=== PATIENT | female | born 1940 | race African-American/Black ===

== ENCOUNTER 2016-09-01 19:10 | Inpatient (IN) | payer OTHER ==
--- NOTE | ~2016-09-01 | CN ---
Consultation Report [facility] [address] [place]. [address] NAME: JUAN CHARLES : 38 STATUS : ADM IN [facility]#: [id number] AGE: 76 ADM/REG DATE : 09/01/16 MR#: [id number] REPORT SERV DATE: 09/30/16 DICTATED BY: OLGA LIDIA KEITA DATE: 09/30/16 REPORT STATUS : Draft TRANSCRIBED BY: MODL DATE: 09/30/16 INFECTIOUS DISEASE CONSULTATION DATE OF CONSULTATION: REASON FOR REFERRAL: Evaluation and treatment of infected hematoma. HISTORY OF PRESENT ILLNESS: The patient is a 76-year-old female. She has a history of hypertension, hyperlipidemia, degenerative joint disease, and diverticulosis. She came in, in July, she had a diverticular bleed. This ultimately resulted in needing 7 units of packed red blood cells, and required an embolization by Interventional Radiology at the terminal iliac, celiac vessels. She then returned in August with a large hematoma in her right groin. She was seen by Dr. Sadler and that area was incised and drained on 09/02/2016. Cultures of it grew in the broth only E coli and Enterococcus. At that time, her white blood cell count was mildly elevated and she had no fever except for an occasional low-grade temperature of around 100.5. She was treated with Ancef. She continued to have difficulty with bleeding. She had nosebleeds, hematuria. 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 She became more ill with higher white count in early September. Blood cultures were checked and she grew E. coli from her blood. Her groin was cultured again and grew Enterococcus, Pseudomonas, and Klebsiella. She was on initially ampicillin and Septra after that, but then ultimately switched on 09/20/2016 to cefepime with the Enterococcus, it was changed to Zosyn on 09/24/2016. She has had repeat debridements again on 09/26/2016, where she grew E coli and Enterococcus and then again today, and she has had VAC pack placed with the last two procedures. She since the Zosyn was started has had normalization of her white count. She feels better and with the treatment of her factor VIII deficiency, bleeding has stopped. She has a VAC pack on her wound now. No cultures were sent today. PAST MEDICAL HISTORY: Otherwise unremarkable. Extensive records from [facility] hospitalization were reviewed for approximately 30 minutes in addition to the usual consult time. ALLERGIES: SHE HAS NO ANTIMICROBIAL ALLERGIES. SOCIAL HISTORY: She is living independently at home prior to this. She is a nonsmoker. Has no history of alcohol or substance abuse. She is . Has supportive family. 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 FAMILY HISTORY: Noncontributory. PHYSICAL EXAMINATION: GENERAL: A nontoxic, adult, female, in no acute distress. She is alert and oriented x3. Consultation Report [facility] [id number] [place]. [address] NAME: JUAN CHARLES : 38 STATUS : ADM IN [facility]#: [id number] AGE: 76 ADM/REG DATE : 09/01/16 MR#: [id number] REPORT SERV DATE: 09/30/16 DICTATED BY: OLGA LIDIA KEITA DATE: 09/30/16 REPORT STATUS : Draft TRANSCRIBED BY: INES DATE: 09/30/16 VITAL SIGNS: Her present temperature is 97.7, pulse 72, respirations 12, blood pressure 165/67, weight is 83 kg. HEENT: Sclerae are clear. There are no oropharyngeal lesions. NECK: Supple without lymphadenopathy. LUNGS: Clear. HEART: Regular rate and rhythm. ABDOMEN: Soft, nontender. Positive bowel sounds. The groins are covered by VAC pack. There is no redness or purulence around it. EXTREMITIES: Without clubbing or cyanosis, or edema. LABORATORY DATA: Her white blood cell count today 7, it had been previously 16 when she came in. She layton to 21 on 09/08/2016 and then 29 on 09/19/2016 to 30.6 on 09/20/2016 and 31.1 on 09/23/2016. It has been decreasing since down to 13 on 09/26/2016 and 10.1 on 09/27/2016 and 8.55 on 09/28/2016, and 7 today with a hematocrit of 26.5, platelets 278. The differential shows today 88 segs and 3 bands, but she previously had a high bandemia as high as 19% bands at the time of the positive blood cultures. Her BUN and creatinine are 10 and 0.68. IMPRESSION: An infected hematoma at the site of puncture for an embolization procedure. All of this has been complicated by her factor VIII deficiency leading to multiple episodes of bleeding, collections of blood that markedly increase her risk of secondary infection, which has now happened with multiple organisms, even leading to bacteremia. At present though, she is doing much better, and the antibiotic she is on Zosyn will cover all the isolated organisms. RECOMMENDATIONS: 1. Agree with the Zosyn. 2. Probably will need at least one more week IV. We will have to see how the wound does with subsequent VAC pack changes. 3. Finally, I will follow the patient with you. I appreciate very much your consulting on this patient. ANNE/INES Olga Lidia Keita M.D. / [id number] CC: MD Robert Mchugh M.D. Daniel Fisher Jr., M.D.
--- NOTE | ~2016-09-01 | IDS ---
Interim Discharge Summary [facility] [address] [place]. [address] NAME: JUAN CHARLES : 38 STATUS : ADM IN [facility]#: [id number] AGE: 76 ADM/REG DATE : 09/01/16 MR#: [id number] REPORT SERV DATE: 09/21/16 DICTATED BY: ESTELLE GILLETTE DATE: 09/21/16 REPORT STATUS : Draft TRANSCRIBED BY: MODL DATE: 09/21/16 ADMISSION DATE: 09/01/2016 DISCHARGE DATE: CONSULTING PHYSICIANS: Dr. Fawad Guillory and Dr. Palacios for Hematology and Dr. Sadler for Vascular Surgery. INTERIM DIAGNOSES: 1. Acquired factor VIII inhibitor with coagulopathy. 2. Acute blood loss anemia, status post 6 units of packed RBC. 3. Right groin hematoma, status post evacuation and repair. 4. Escherichia coli bacteremia. 5. Possible groin wound infection. 6. Hypertension. 7. Status post hematuria and urinary retention. 8. Status post acute kidney injury. 9. Status post hyponatremia. HOSPITAL COURSE: Please refer to the H and P done by Dr. Bailey on 09/02/2016, my interim discharge in 09/07/2016, and the interim done by Dr. Gina zuñiga on 09/14/2016. Since I reassumed care of this patient, the patient was being seen by Hematology and was being given NovoSeven and later on Feira to help with the factor VIII inhibitors. The patient was being followed by Vascular Surgery. At one point, they were thinking of reexploring the wound; however, the bleeding seems to have gone down with these medications. Later on, they got the titers back, and they started the patient on cyclophosphamide with the prednisone. The patient was then transferred to [facility] so that they can give the cyclophosphamide every day. The patient was not feeling well at one point. We did a blood culture that turned out to be E coli. We thought it was in the wound as she had E. coli in the wound earlier part of this admission. The groin was being checked, and we found the wound malodorous and culture was done which showed Klebsiella and Pseudomonas. The patient was started on antibiotics, and it was switched now to cefepime which will take care of the three identified bacteria. Meanwhile, Urology has signed off as the patient stopped having hematuria, and the Menard was removed, and the patient is able to urinate. Kidney function went back to normal. Hyponatremia improved. The patient will now be continuing the chemotherapy and titers will be rechecked and hopefully that this would continue helping the patient not bleed. Partner of mine will be following up the patient starting Thursday. SLY/INES Estelle Gillette M.D. / [id number] Interim Discharge Summary [address] [address] NAME: JUAN CHARLES : 38 STATUS : ADM IN [facility]#: [id number] AGE: 76 ADM/REG DATE : 09/01/16 MR#: [id number] REPORT SERV DATE: 09/21/16 DICTATED BY: ESTELLE GILLETTE DATE: 09/21/16 REPORT STATUS : Draft TRANSCRIBED BY: INES DATE: 09/21/16 CC: Dylon Machado M.D.
--- NOTE | ~2016-09-01 | IDS ---
Interim Discharge Summary [facility] [address] [place]. [address] NAME: JUAN CHARLES : 38 STATUS : ADM IN [facility]#: [id number] AGE: 76 ADM/REG DATE : 09/01/16 MR#: [id number] REPORT SERV DATE: 09/30/16 DICTATED BY: DATE: REPORT STATUS : Draft TRANSCRIBED BY: MODL DATE: 09/29/16 ADMISSION DATE: 09/01/2016 DISCHARGE DATE: CONTINUATION: Pertinent tests and procedures occurring between the dates of 09/23/2016 and 09/29/2016: 1. Upper GI endoscopy, 09/26/2016. Impression: Normal examined jejunum, esophagus, stomach, and duodenum. No endoscopic evidence of hiatus hernia, inflammation, mucosal abnormalities, ulceration, varices, angioectasia, or portal hypertension gastropathy in the entire examined stomach. 2. Colonoscopy, 09/26/2016. Impression: Diverticulosis in the entire examined colon. Many small polyps at the splenic flexure, in transverse colon, in the ascending colon, and in the cecum. One 50 mm polyp at 30 cm proximal to the anus resected and retrieved. 3. Video capsule endoscopy. Verbal report given by GI two days ago with no evidence of bleeding. 4. Radical debridement of right groin wound and placement of wound VAC, 09/26/2016. 5. Surgical culture from right groin collected, 09/26/2016, final culture sparse growth of E. coli. Presumptive Enterococcus faecalis group D. Final Gram stain on specimen, rare gram-negative bacilli, and moderate white blood cells. 6. Red blood cell tagged scan, 09/27/2016. Impression: Negative study. HOSPITAL COURSE: The patient has had an extended hospitalization with admission date occurring on 09/02/2016. Please refer to multiple consultations provided by Urology, Oncology, Gastroenterology, and Vascular Surgery as well as interim discharges occurring between the dates of 09/02/2016 and 09/29/2016 for all details pertaining to events occurring during this hospitalization. 1. Right groin hematoma infected. On 08/04/2016, the patient developed a pseudoaneurysm to the right groin status post right groin puncture for mesentery embolization procedure. The patient underwent evacuation and repair on 09/02/2016. The patient has been on antibiotics to treat multiple organism infection to include Pseudomonas aeruginosa, Klebsiella pneumoniae, and Enterococcus faecalis group D. Despite aggressive antibiotic therapy, the patient developed infection to right groin wound over the past week and Vascular Surgery was reconsulted. The patient underwent radical debridement of right groin wound with placement of wound VAC to treat necrotic right groin wound on 07/26/2016. Additional wound cultures were collected and result is positive for sparse growth of E. coli and presumptive Enterococcus faecalis group D. Antibiotic tree in pharmacy was contacted today regarding new culture result, and it was recommended to continue Zosyn at this time. The patient will undergo wound VAC dressing change under anesthesia in the OR in the morning, and ID has been consulted per Vascular Surgery. 2. E. coli bacteremia. This was resultant of 2 positive blood cultures, 09/18/2016. The patient was initially on cefepime; however, white blood cell count continued to trend upward with this antibiotic therapy. On 09/23/2016, cefepime was discontinued and Zosyn was started. At the time of this antibiotic switch, white blood count was 31.1. Within 24 hours of initiating Zosyn, white blood cell count trended down to 24.1, and Interim Discharge Summary [address] [address] NAME: JUAN CHARLES : 38 STATUS : ADM IN [facility]#: [id number] AGE: 76 ADM/REG DATE : 09/01/16 MR#: [id number] REPORT SERV DATE: 09/30/16 DICTATED BY: DATE: REPORT STATUS : Draft TRANSCRIBED BY: MODL DATE: 09/29/16 then has continued to trend down daily and is 8.6 today. 3. Acquired factor VIII inhibitor with coagulopathy. Continue Cytoxan and prednisone. Oncology may likely start rituximab tomorrow in addition to these two medications. The patient is slowly improving, however, factor VIII inhibitor quantitative titer is still significantly elevated at 20.8. 4. Acute blood loss anemia and bright red blood per rectum. The patient has undergone multiple GI diagnostic tests with no endoscopic evidence for active bleed. The patient was initially placed on FEIBA, and despite increased dosed every six hours, the patient continued to be high risk for bleeding with PTT continuing to escalate. FEIBA was discontinued, and the patient was placed on NovoSeven. Since this therapy has been initiated, the patient's PTT is slowly trending downward and need for the transfusions has decreased. NovoSeven will be continued for up to two weeks inpatient. 5. Chronic anemia. In the setting of acute blood loss anemia secondary to factor VIII inhibitor, transfuse p.r.n. The patient has received 4 units of packed red blood cells since 09/24/2016, and hemoglobin is stable today at 8.3. GI signed off on 07/28/2016. Reconsult is needed. CURRENT PLAN: 1. Continue NovoSeven, Cytoxan, and prednisone with possible addition of rituximab tomorrow. 2. The patient will most likely remain hospitalized for at least 2 more weeks until NovoSeven therapy is completed and acute blood loss anemia is resolved. 3. PT has been reconsulted for evaluation and treatment on 10/01/2016 after the patient has undergone right groin hematoma wound VAC exchange in the OR. LIUDMIAL/INES Elissa Jones NP-Jason / [id number] CC: MD Robert Sue II, M.D.
--- NOTE | ~2016-09-01 | DS ---
Discharge Summary [facility] [address] [place]. [address] NAME: JUAN CHARLES : 38 STATUS : DIS IN PAT#: [id number] AGE: 76 ADM/REG DATE : 09/01/16 MR#: [id number] REPORT SERV DATE: 10/22/16 DICTATED BY: DATE: REPORT STATUS : Draft TRANSCRIBED BY: MODL DATE: 10/21/16 ADMISSION DATE: 09/01/2016 DISCHARGE DATE: 10/21/2016 DISCHARGE DIAGNOSES: 1. Right groin hematoma, previous infection/bacteremia. 2. Hypertension. 3. Acute blood loss anemia on chronic anemia. 4. Right calf swelling chronic. 5. Factor VIII inhibitor. CONSULTATIONS: 1. Dr. Palacios, Oncology. 2. Patrick Pineda, nurse practitioner, Gastroenterology. 3. Dr. De León, Urology. 4. Dr. Levy, Infectious Disease. PERTINENT TESTS AND PROCEDURES: Occurring between the dates of 10/20/2016 and 10/21/2016. 1. Laboratory data. Factor VIII inhibitor. Quantitative result 0.6. 2. Right lower extremity venous Doppler, 10/21/2016, impression: No evidence of DVT. Please note that there is obscuration of the common femoral vein from analysis because of overlying wound. HOSPITAL COURSE: Please refer to history and physical dated 09/02/[address] David Bailey for complete details pertaining to the patient's initial presentation upon admission and health history. The patient's hospital stay has been extensive ranging between the dates of 09/01/2016 and 10/21/2016. During this time, the patient has had multiple consultations to include Oncology, Urology, Gastroenterology, Vascular Surgery, and Infectious Disease Please refer to multiple interim discharge summaries and consultations occurring between the dates of 09/02/2016 and 10/21/2016 for additional details pertaining to events occurring during the patient's hospital course. Please refer to most recent interim discharge summary dated 10/20/2016 covering dates of service between 10/14/2016 and 10/20/[address] Dylan Larson for the most recent occurrences. Briefly, the patient is a 76-year-old female, who presented to the emergency department on 09/01/2016 with complaints of right groin swelling and pain in the setting of recent history of right common femoral pseudoaneurysm, status post right groin puncture for mesentery embolization on 08/04/2016. Hospitalization was complicated secondary to the patient's history of a factor VIII inhibitor. The patient at risk for life-threatening blood loss anemia. Discharge Summary [facility] [place]. [address] NAME: JUAN CHARLES : 38 STATUS : DIS IN PAT#: [id number] AGE: 76 ADM/REG DATE : 09/01/16 MR#: [id number] REPORT SERV DATE: 10/22/16 DICTATED BY: DATE: REPORT STATUS : Draft TRANSCRIBED BY: MODL DATE: 10/21/16 Oncology was consulted, and the patient has been managed per their service to treat factor VIII inhibitor in the setting of acute blood loss anemia on chronic anemia. 1. Right groin hematoma. The patient is status post previous infection/bacteremia. Antibiotic course was completed during this hospitalization. The patient most recently underwent a radical debridement of right groin wound and placement of wound VAC on 09/26/2016. The patient is no longer requiring antibiotic therapy and wound VAC will be managed per Home Health Care upon discharge. 2. Hypertension. The patient has continued home blood pressure medications with no need for additional interventions. These medications will be continued at discharge. 3. Acute blood loss anemia in the setting of chronic anemia. The patient has had a slow GI bleed throughout this admission. Extensive endoscopic workup revealed normal examined jejunum, esophagus, stomach, and duodenum. There was no endoscopic evidence of bleed. The patient has responded well to blood transfusions as needed and bloody stool has now resolved. The patient's last CBC was checked on 10/19/2016 and hemoglobin and hematocrit were reported to be 7.5 and 24.5. The patient has received NovoSeven during this admission and her last dose was 10/17/2016. The patient has not had any additional signs or symptoms of bleeding since the discontinuation of NovoSeven and her inhibitor levels have been routinely followed by Oncology and have improved to near normal. Labs will be checked on a routine basis by [facility] outpatient. 4. Factor VIII inhibitor. The patient is status post Cytoxan. Last dose of Rituxan was today. The patient will continue prednisone 80 mg daily with breakfast and outpatient taper will begin per Dr. Palacios. 5. Right calf swelling. Per patient, this is chronic secondary to surgery requiring plate placement in foot. Examination revealed right calf 42 cm, left calf 34 cm. The patient has not been able to receive any anticoagulation for DVT prophylaxis during this admission secondary to factor VIII inhibitor in the setting of high risk for bleeding. Right lower extremity venous Doppler was obtained prior to discharge today and it was negative for DVT. DISCHARGE CONDITION: At the time of discharge, the patient is hemodynamically stable. DISCHARGE DIET: Regular diet as tolerated. DISCHARGE MEDICATIONS: 1. Lotrel 5 mg/20 mg tablet p.o. daily. 2. Fenofibrate 67 mg tablet p.o. daily. 3. Protonix 40 mg tablet p.o. twice daily before breakfast and supper. 4. Carafate 1 g p.o. every six hours x2 weeks. 5. Deltasone 80 mg tablet p.o. daily with breakfast. 6. Refresh artificial tears one drop to both eyes as needed. 7. [place] 5 mg/325 mg tablet p.o. three times daily as needed. 8. Advil 200 mg tablet p.o. three times daily. 9. The patient was educated to stop taking all NSAIDs due to history of factor VIII inhibitor and recent GI bleed. DISCHARGE INSTRUCTIONS: 1. Dr. Palacios, [facility], 10/24/2016 at 2:15 p.m. Discharge Summary [address] [address] NAME: JUAN CHARLES : 38 STATUS : DIS IN PAT#: [id number] AGE: 76 ADM/REG DATE : 09/01/16 MR#: [id number] REPORT SERV DATE: 10/22/16 DICTATED BY: DATE: REPORT STATUS : Draft TRANSCRIBED BY: MODL DATE: 10/21/[address] Waite, GI. Office will call the patient once discharge, to schedule followup visit. The patient was educated to return to the emergency department for any acute onset of uncontrolled bleeding, shortness of breath at rest, and/or dyspnea on exertion, black tarry stool, visible right red blood in stool, syncopal or near syncopal episodes, chest pain, or any other signs or symptoms that or deviations from her baseline health status at the time of this discharge. Primary oncologist, Dr. Palacios. Primary care physician, Dr. Robert Singh. Primary tool lathe operator, Dr. Greg Waite. JWH/MODL VIVI Irene / [id number] CC: MD Robert Sue II, M.D.
--- NOTE | ~2016-09-01 | IDS ---
Interim Discharge Summary [facility] [address] [place]. [address] NAME: JUAN CHALRES : 38 STATUS : ADM IN [facility]#: [id number] AGE: 76 ADM/REG DATE : 09/01/16 MR#: [id number] REPORT SERV DATE: 09/14/16 DICTATED BY: ESTELLE FUENTES DATE: 09/14/16 REPORT STATUS : Draft TRANSCRIBED BY: MODL DATE: 09/14/16 ADMISSION DATE: 09/01/2016 DISCHARGE DATE: 09/14/2016 CONSULTANTS: 1. Dr. Garret Porter, Hematology. 2. Dr. Jose De León, Urology. 3. Dr. Kahlil Sadler, Vascular Surgery. INTERIM DIAGNOSES: 1. Acquired factor VIII inhibitor with coagulopathy. 2. Large right groin hematoma requiring evacuation and repair. 3. Ongoing gross hematuria after Menard catheter. 4. Major diverticular bleed, June 2016, requiring coil. 5. Previous major nose bleeds, late 2014. 6. Acute blood loss anemia. 7. Hypertension. 8. Obesity with body mass index of 33.9. 9. Osteoarthritis. 10.Status post hyponatremia. HOSPITAL COURSE: This patient has had a number of bleeding problems. In 2014, she had repeated multiple nosebleeds that took months to get stopped and multiple trips to Ears, Nose, and Throat. She was hospitalized here 07/16/2016 through 07/24/2016 with a lower GI bleed that was quite large and required interventional Radiology to do a coiling procedure to stop the bleeding from her right colon. At that time, she had the bleeding controlled. She was discharged but came back September 01 with a very large right groin hematoma, and was seen by Dr. Kahlil Sadler who explored it and repaired a small hole in the right common femoral artery and evacuated a very large hematoma. The patient received transfusion of blood during this as well. The patient had a Menard catheter in when I met her, and she was having gross intermittent hematuria so I had Dr. Jose De León of Urology see her, and he started to bladder irrigation but she continued to bleed. I noticed that her PTT and protime/INR were elevated and have been since June, so I repeated them and given her vitamin K, they did not improve. She does not have any sign of chronic liver disease. She is not taking any anticoagulants. I was very concerned that she had an acquired inhibitor causing coagulopathy. Family recalled that a manager dairy had seen her before for this but they had no idea what the specific diagnosis was. They remembered that the patient was given a card and supposed to keep it in her wallet but they could not find this. I had Dr. Garret Porter see her. He found that his partner, Dr. Gibbs, had seen her last year at [facility] where she was found to have a factor VIII inhibitor and at that time, she had a low titer of the inhibitor and she was put on steroids and improved, and had a followup in their office through November. Now with her current scenario, he thinks it is most likely that the inhibitor titer has gone up considerably, and he is recommending that she be Interim Discharge Summary [address] [place] [place]. [id number] NAME: JUAN CHARLES : 38 STATUS : ADM IN [facility]#: [id number] AGE: 76 ADM/REG DATE : 09/01/16 MR#: [id number] REPORT SERV DATE: 09/14/16 DICTATED BY: ESTELLE FUENTES DATE: 09/14/16 REPORT STATUS : Draft TRANSCRIBED BY: MODL DATE: 09/14/16 started on prednisone 1 mg/kg and to consider either Rituxan or other immunosuppressive agents to try to control the inhibitor level. The bleeding appears to be predominantly problem related to the acquired factor VIII inhibitor. RSG/MODL Estelle Fuentes M.D. / [id number] CC: Dylon Fernandes M.D.
--- NOTE | ~2016-09-01 | OP ---
Record Of Operation [facility] [address] [place]. [address] NAME: JUAN CHARLES : 38 STATUS : ADM IN [facility]#: [id number] AGE: 76 ADM/REG DATE : 09/01/16 MR#: [id number] REPORT SERV DATE: 09/30/16 DICTATED BY: KAHLIL SADLER JR. DATE: 09/30/16 REPORT STATUS : Draft TRANSCRIBED BY: MODL DATE: 09/30/16 DATE OF PROCEDURE: 09/30/2016 PREOPERATIVE DIAGNOSIS: Necrotic right groin wound. POSTOPERATIVE DIAGNOSIS: Necrotic right groin wound. OPERATION: Removal of VAC sponge, debridement of wound, replacement of explant. SURGEON: Kahlil Sadler M.D. HISTORY: This is a 76-year-old, black female, with factor VIII deficiency, who had an arteriogram more three weeks ago with development of a hematoma. I ultimately drained the hematoma and she started oozing. 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 She has been given factor VII as replacement. The wound was necrotic and was debrided four days ago. She is brought back today for a VAC change. DESCRIPTION OF PROCEDURE: The patient was placed on operating table. LMA general anesthetic. The VAC sponge was removed. The wound was immediately noted to be markedly improved over four days ago. The groin was prepped and draped in a sterile manner as possible. Pickups were then used to continue the debridement process. Debridement was done with scissors and was all the way down to fascia and muscle. The VAC sponge was then replaced. The size of the wound was 10 x 12 cm. The patient tolerated procedure well. Taken back to recovery room in fair condition. No intraoperative complications. ESTIMATED BLOOD LOSS: Negligible. DF/MODL Kahlil Sadler Jr., M.D. / [id number] CC: MD Robert Sue II, M.D.
--- NOTE | ~2016-09-01 | CN ---
Consultation Report [facility] [address] [place]. [address] NAME: JUAN MILLER : 38 STATUS : ADM IN PAT#: [id number] AGE: 76 ADM/REG DATE : 09/01/16 MR#: [id number] REPORT SERV DATE: 09/24/16 DICTATED BY: GLADYS MIRANDA DATE: 09/24/16 REPORT STATUS : Draft TRANSCRIBED BY: MODL DATE: 09/24/16 GI CONSULTATION DATE OF CONSULTATION: 09/24/2016 REASON FOR CONSULTATION: Evaluation and management of lower GI bleeding with acute blood loss anemia. HISTORY OF PRESENT ILLNESS: Ms. Miller is a pleasant 76-year-old female patient, who we saw in July of 2016 secondary to lower GI bleeding, who underwent two separate colonoscopies with no active site of bleeding being found. One colonoscopy felt that her bleeding was from the left side of the colon. Another colonoscopy felt that was from right side of the colon. She has notable diverticulosis throughout her entire colon. She ended up going to Interventional Radiology for arteriogram with embolization. Bleeding subsequently stopped. She was discharged. She returned to the hospital on the 09/01/2016 with a chief complaint of right groin pain, was found to have right groin hematoma and has had undergone evacuation and repair with Dr. Sadler. Since that time, she has been diagnosed with E coli bacteremia from the wound as well as acquired factor VIII inhibitor coagulopathy. She was having hematuria with urinary retention and was on bladder irrigation for quite some time, which has since resolved and her urine is clear now. She has been having intermittent bright red blood per rectum. GI was consulted today for further evaluation of that bleeding. Presently, she has been treated by Dr. Palacios with cyclophosphamide factor VIIIa recumbent as well as prednisone. She had one bloody bowel movement today. Her hemoglobin is 7.3. She is status post 8 total units of packed red blood cells at this time. I have discussed the case with Dr. Marrufo, however, we will discuss further with Dr. Harman. His recommendations are for colonoscopy on Thursday after bowel prep. We will discuss with her and potentially plan on proceeding with that on Thursday, however, if not felt stable for this, we will of course reassess and plan accordingly. PAST MEDICAL HISTORY: Positive for calix-diverticulosis with diverticular bleeding in July of 2016, status post two colonoscopies as well as Interventional Radiology embolization. Embolization was done around the cecum. Hypertension, hyperlipidemia, degenerative joint disease, acquired factor VIII inhibitor coagulopathy, osteoarthritis, acute blood loss anemia, right common femoral pseudoaneurysm. SURGICAL HISTORY: Right foot, appendectomy, right carpal tunnel, internal iliac and celiac artery embolization for diverticular bleeding. SOCIAL HISTORY: No alcohol, tobacco, or illicits noted. FAMILY HISTORY: Negative from a GI standpoint. ALLERGIES: RED DYE. Consultation Report [place] [id number] [facility] [place]. [address] NAME: JUAN MILLER : 38 STATUS : ADM IN [facility]#: [id number] AGE: 76 ADM/REG DATE : 09/01/16 MR#: [id number] REPORT SERV DATE: 09/24/16 DICTATED BY: GLADYS MIRANDA DATE: 09/24/16 REPORT STATUS : Draft TRANSCRIBED BY: INES DATE: 09/24/16 HOME MEDICATIONS: Lotrel, refresh, fenofibrate, Magazine, Advil. REVIEW OF SYSTEMS: A 10-point review of systems has been obtained with pertinent positives being addressed in the history of present illness. PHYSICAL EXAMINATION: VITAL SIGNS: Temperature is 98.1, pulse 93, respirations 18, and blood pressure 135/87. NEURO: Reveals an alert, female, sitting up in the chair. No obvious focal deficits. GENERAL: Cooperative, in no apparent distress. Awake and oriented x3. HEAD, EARS, EYES, NOSE, AND THROAT: Anicteric. Pupils are equal, round, reactive to light and accommodation. Normocephalic and atraumatic. NECK: No JVD. No palpable nodes. LUNGS: Diminished throughout with normal respiratory effort exhibited. Equal expansion. CARDIOVASCULAR: Regular rate and rhythm. ABDOMEN: Soft, nondistended, nontender. Obese. No organomegaly appreciated. EXTREMITIES: She has notable right groin dressing, which is clean, dry, and intact. SKIN: Warm and dry and intact. PERTINENT LABORATORY DATA: Sodium is 141, potassium 4, BUN is 37, creatinine is 1.1. White count 24.1, hemoglobin 7.3, hematocrit 22.0, INR is 1.2. ASSESSMENT: 1. Acute blood loss anemia status post 8 total units in this admission. 2. Intermittent recurrent bright red blood per rectum, most likely diverticular bleeding in nature. 3. Acquired factor VIII inhibitor/coagulopathy, being treated by Hematology. 4. Escherichia coli bacteremia/right groin hematoma status post evacuation of repair. 5. Status post hematuria. 6. Leukocytosis. PLAN: 1. Most likely repeat colon on Thursday, however, we will discuss further with Dr. Harman. 2. Follow H and H and transfuse as needed. DG/INES Gladys STACEY Pineda / [id number] Consultation Report [address] [place]. [address] NAME: JUAN MILLER : 38 STATUS : ADM IN PAT#: [id number] AGE: 76 ADM/REG DATE : 09/01/16 MR#: [id number] REPORT SERV DATE: 09/24/16 DICTATED BY: GLADYS MIRANDA DATE: 09/24/16 REPORT STATUS : Draft TRANSCRIBED BY: INES DATE: 09/24/16 CC: MD Robert Sue II, M.D.
--- NOTE | ~2016-09-01 | OP ---
Record Of Operation [facility] [address] [place]. [address] NAME: JUAN CHARLES : 38 STATUS : ADM IN [facility]#: [id number] AGE: 76 ADM/REG DATE : 09/01/16 MR#: [id number] REPORT SERV DATE: 09/26/16 DICTATED BY: KAHLIL SADLER JR. DATE: 09/26/16 REPORT STATUS : Draft TRANSCRIBED BY: INES DATE: 09/26/16 DATE OF PROCEDURE: 09/26/2016 PREOPERATIVE DIAGNOSIS: Necrotic right groin wound. POSTOPERATIVE DIAGNOSIS: Necrotic right groin wound. OPERATION: Radical debridement of right groin wound, placement of VAC dressing (10 x 12 cm). SURGEON: Dr. Kahlil Sadler. HISTORY: This is a 76-year-old black female, who had a groin hematoma evacuated three weeks ago. She has been in the hospital with a factor 8 deficiency ever since. She has been noted to have a necrotic wound. I was asked to re-debride the wound. PROCEDURE: The patient was placed on the operating room table. She underwent general endotracheal anesthetic. The right groin was prepped and draped in a sterile manner as possible. The wound was completely opened up. There was necrotic fascia and subcutaneous tissue found in the wound. There is projection that went medially and also laterally as well as superiorly and inferiorly. The Conner scissors was then used to radically debrided this wound all the way down to the muscle. This also included cut and away some skin. The wound was cultured. A pulse lavage commissary superintendent was then used to irrigate the wound. A VAC sponge was then placed. The patient tolerated the procedure well, taken back to recovery room in serious condition. There were no intraoperative complications. ESTIMATED BLOOD LOSS: 150 mL. DF/INES Kahlil Sadler Jr., M.D. / [id number] CC: MD Robert Sue II, M.D.
--- NOTE | ~2016-09-01 | EGD ---
EGD REPORT [facility] [address] [place] [address] NAME: JUAN MILLER : 38 STATUS : ADM IN PAT#: [id number] AGE: 76 ADM/REG DATE : 09/01/16 MR#: [id number] REPORT SERV DATE: 09/26/16 DICTATED BY: DATE: REPORT STATUS : Draft TRANSCRIBED BY: [employer] DATE: 09/26/16 [facility] Patient Name: Juan Miller Date of : 1940 Attending MD: BG HERNÁNDEZ MD Procedure Date No Time: 09/26/2016 Procedure: Colonoscopy Indications: Hematochezia, Melena Referring MD: RASHEEDA PATRICIO MD Medicines: Monitored Anesthesia Care Complications: No immediate complications. Procedure: Pre-Anesthesia Assessment: - ASA Grade Assessment: III - A patient with severe systemic disease. After I obtained informed consent, the scope was passed under direct vision. Throughout the procedure, the patient's blood pressure, pulse, and oxygen saturations were monitored continuously. The PCF [id number] was introduced through the anus and advanced to 8 cm into the ileum. The colonoscopy was performed without difficulty. The patient tolerated the procedure well. The quality of the bowel preparation was good. Findings: The perianal and digital rectal examinations were normal. Multiple small and large-mouthed diverticula were found in the entire colon. These were thoroughly lavaged clear. No active bleeding was seen. Many sessile polyps were found at the splenic flexure, in the transverse colon, in the ascending colon and in the cecum. The polyps were small in size. I did not attempt removal given no evidence of bleeding. A pedunculated polyp with a long stalk was found at 30 cm proximal to the anus. The polyp was 15 mm in size. There was no active bleeding, however, bright red blood was found and given recurrent hemorrhage I elected to remove this and place multiple clips to prevent bleeding. Three hemostatic clips were successfully placed. This was done to prevent bleeding. Area was successfully injected with 2 mL of a 1:10,000 solution of epinephrine for hemostasis. The polyp was removed with a hot snare. Resection and retrieval were complete. No other significant abnormalities were identified in a careful examination of the remainder of the colon. There is no endoscopic evidence of ulcerations or angioectasia in the entire colon. No additional abnormalities were found on retroflexion. The terminal ileum contained a single diminutive diverticulum. No additional abnormalities were found on retroflexion. EGD REPORT [address] [place]. [address] NAME: JUAN MILLER : 39 STATUS : ADM IN [facility]#: [id number] AGE: 76 ADM/REG DATE : 09/01/16 MR#: [id number] REPORT SERV DATE: 09/26/16 DICTATED BY: DATE: REPORT STATUS : Draft TRANSCRIBED BY: [employer] DATE: 09/26/16 Impression: - Diverticulosis in the entire examined colon. - Many small polyps at the splenic flexure, in the transverse colon, in the ascending colon and in the cecum. - One 15 mm polyp at 30 cm proximal to the anus. Resected and retrieved. Clips were placed. Injected. Recommendation: - Return patient to [facility] for ongoing care. - Continue present medications. - Await pathology results. - To visualize the small bowel, perform video capsule endoscopy today. Procedure Code(s): --- Professional --- 73633, 59, Colonoscopy, flexible, proximal to splenic flexure; with control of bleeding (eg, injection, bipolar cautery, unipolar cautery, laser, heater probe, stapler, plasma set key driver) 05991, Colonoscopy, flexible, proximal to splenic flexure; with removal of tumor(s), polyp(s), or other lesion(s) by snare technique Diagnosis Code(s): --- Professional --- K57.30, Diverticulosis of large intestine without perforation or abscess without bleeding D12.6, Benign neoplasm of colon, unspecified D12.3, Benign neoplasm of transverse colon D12.2, Benign neoplasm of ascending colon D12.0, Benign neoplasm of cecum K92.1, Melena CPT copyright 2013 [employer]. All rights reserved. The codes documented in this report are preliminary and upon produce assistant review may be revised to meet current compliance requirements. BG HERNÁNDEZ MD 09/26/2016 10:47 AM This report has been signed electronically. Number of Addenda: 0 Note Initiated On: 09/26/2016 9:31 AM Scope Withdrawal Time 0 hours 37 minutes 30 seconds EGD REPORT [facility] [address] [address] NAME: JUAN MILLER : 38 STATUS : ADM IN [facility]#: [id number] AGE: 76 ADM/REG DATE : 09/01/16 MR#: [id number] REPORT SERV DATE: 09/26/16 DICTATED BY: DATE: REPORT STATUS : Draft TRANSCRIBED BY: [employer] DATE: 09/26/16 [address] [address]
--- NOTE | ~2016-09-01 | IDS ---
Interim Discharge Summary [place] [id number] [address] NAME: JUAN CHARLES : 38 STATUS : ADM IN [facility]#: [id number] AGE: 76 ADM/REG DATE : 09/01/16 MR#: [id number] REPORT SERV DATE: 09/29/16 DICTATED BY: DATE: REPORT STATUS : Draft TRANSCRIBED BY: MODL DATE: 09/29/16 ADMISSION DATE: 09/01/2016 DISCHARGE DATE: DISCHARGE DATE: Approximately two weeks. Interim summary covers dates of service between 09/23/2016 and 09/29/2016. INTERIM DIAGNOSES: 1. Right groin hematoma infected. 2. Escherichia coli bacteremia. 3. Factor VIII inhibitor with coagulopathy. 4. Acute blood loss anemia/bright red blood per rectum. 5. Chronic anemia. Pertinent tests and procedures occurring between the dates of 09/23/2016 and 09/29/2016: DICTATION ENDS HERE BRODY VIVI Irene / [id number] CC: MD Robert Sue II, M.D.
--- NOTE | ~2016-09-01 | IDS ---
Interim Discharge Summary [facility] [address] [place]. [address] NAME: JUAN CHARLES : 38 STATUS : ADM IN [facility]#: [id number] AGE: 76 ADM/REG DATE : 09/01/16 MR#: [id number] REPORT SERV DATE: 10/06/16 DICTATED BY: DARCI BURGOS DATE: 10/06/16 REPORT STATUS : Draft TRANSCRIBED BY: MODMerrill DATE: 10/06/16 ADMISSION DATE: 09/01/2016 DISCHARGE DATE: DATE OF DISCHARGE: Unknown. DATE OF INTERIM NOTE: 09/30 through 10/06. CONSULTATIONS: 1. Oncology, Dr. Porter on 09/14/2016. 2. GI, Patrick Pineda NP, 09/24/2016. 3. Urology, Dr. De León, 09/09/2016. 4. Infectious Disease, Dr. Levy, 09/29/2016. PROCEDURES AND IMAGING: Right groin wound VAC exchange on 10/06/2016. Site noted with full thickness wound, has a moist red/pink wound bed with open wound edges. Surgical mesh placed over bleeding site. Wound VAC exchanged without difficulty. Removal of VAC sponge and debridement of wound, replacement of explant on 09/30/[address] Sadler. HOSPITAL COURSE: Please refer to history and physical dictated on 09/01/[address] David Bailey as well as interim notes by Dr. Sommer on 09/07/2016, Dr. Fuentes on 09/14/2016, Dr. Sommer on 09/21/2016, and Elissa Jones on 09/29/2016. This patient has had an extended hospitalization admitted on 09/01/2016, possibly anticipated discharge 10/08/2016. 1. Infected right growing hematoma. Wound VAC exchange on 10/06/2016, status post debridement on 09/30/[address] Sadler. The patient has been treated for a pseudoaneurysm to the right groin, status post right groin puncture from mesentery embolization procedure. The patient underwent evacuation repair on 09/02/2016. The patient has been on antibiotics to treat multiple organisms including Pseudomonas, Klebsiella, Enterococcus faecalis group D. Infectious Disease was consulted regarding patient's antibiotic. At this time, the patient is continued on Zosyn. Additional wound cultures work have been collected and resulted in positive for sparse E. coli and Enterococcus faecalis group D. We will plan for patient to be discharged home with wound VAC. decision support manager is working with patient regarding discharge needs for home health and wound care. 2. E coli bacteremia. The patient had 2 positive blood cultures on 09/18/2016. The patient was initially on cefepime; however, due to increasing WBC count, cefepime was discontinued on the 7th and the patient was changed to Zosyn. Infectious Disease is following patient regarding antibiotic at this time. Per Dr. Levy, the patient will complete IV antibiotics prior to discharge. I do not anticipate patient going home on IV antibiotics at this time. 3. Acquired factor 8 inhibitor with coagulopathy. The patient has continued Cytoxan and prednisone. She will receive her last dose of Rituxan on 10/07/2016. Patient will be able to be discharge home following infusion on either 10/07 or 10/08. 4. Acute blood loss anemia with bright red bleeding from rectum. The patient did undergo Interim Discharge Summary [address] [address] NAME: JUAN CHARLES : 38 STATUS : ADM IN [facility]#: [id number] AGE: 76 ADM/REG DATE : 09/01/16 MR#: [id number] REPORT SERV DATE: 10/06/16 DICTATED BY: DARCI BURGOS DATE: 10/06/16 REPORT STATUS : Draft TRANSCRIBED BY: INES DATE: 10/06/16 multiple GI testing with no endoscopic evidence of active bleed. Initially, patient was placed on Feiba despite increased doses every 6 hours. The patient continued to have high risk for bleeding with PTT continuing to escalate. The Feiba was discontinued. The patient was then placed on NovoSeven. 5. Hypertension. Patient's blood pressure has remained stable. At this time, BP is 134/70. Continue to monitor. 6. Discharge planning. Possible discharge 10/07 or 10/08 following Rituxan infusion. decision support manager is working with patient regarding home health care and wound care. Upon discharge, physical therapy is not needed. The patient does have good support at home. The patient will be followed by Dr. David Mera. [facility] Darci Burgos NP / [id number]
--- NOTE | ~2016-09-01 | CN ---
Consultation Report [facility] [address] [place]. [address] NAME: JUAN MILLER : 38 STATUS : ADM IN PAT#: [id number] AGE: 76 ADM/REG DATE : 09/01/16 MR#: [id number] REPORT SERV DATE: 09/14/16 DICTATED BY: GARRET PORTER DATE: 09/14/16 REPORT STATUS : Draft TRANSCRIBED BY: MODL DATE: 09/14/16 HEMATOLOGY CONSULTATION DATE OF CONSULTATION: 09/14/2016 REASON FOR CONSULTATION: Bleeding disorder with elevated PTT. ATTENDING PHYSICIAN: Evens Martin M.D. HISTORY: Ms Miller is a 76-year-old woman who was actually diagnosed last year with a factor VIII inhibitor over at [facility] and was seen in our office previously by Dr. Gibbs. She had previously had a low titer inhibitor and was on steroids and was tapered down. She had not followed up in our office since November, though. She was recently admitted with a diverticular bleed and had several units of blood. She had also had a right groin hematoma and had a recent evacuation and repair. She is now in the hospital with ongoing hematuria. She had a CT scan of her abdomen and pelvis that showed right groin hematoma measuring up to 11 cm. She was most recently transfused. Her hemoglobin got down to 6.9 two days ago and her hemoglobin has been in the 9.5 range. She has an indwelling Menard catheter. She is being followed by the Urology colleagues as continuous bladder irrigation ongoing at this time. Of note, her PTT was 43 on July 16 and up to 56 in July and then it has been running in the 70s and 80s with current hospitalization. PAST MEDICAL HISTORY: Significant for bleeding issues as above with acquired factor VIII inhibitor and diverticulosis with recent bleed as above, hypertension, hyperlipidemia, DJD, osteoarthritis, and extensive multiple transfusions over the last several weeks for the above issues. FAMILY HISTORY: Father had coronary disease as did siblings. Father had some form of malignancy. SOCIAL HISTORY: She does not smoke or abuse drugs. CURRENT MEDICATIONS: Include Norvasc, Lotensin, Nu-Iron, Lofibra, vitamin K, and Florastor. PHYSICAL EXAMINATION: VITAL SIGNS: Blood pressure 127/72, temperature 97.5, pulse 92. GENERAL: She is an -Prydeinig woman in no acute distress. EYES: Not icteric. NECK: Without obvious adenopathy or JVD. LUNGS: Clear. CARDIAC: Regular. No murmurs heard at this time. ABDOMEN: Soft, nontender. Surgical changes in the groin area. Dressing present. : Indwelling Menard catheter with some mild blood-tinged urine noted in the Menard bag. EXTREMITIES: Have significant cyanosis or edema. Some arthritis changes noted. Consultation Report [place] [address] [place]. [address] NAME: JUAN MILLER : 38 STATUS : ADM IN PAT#: [id number] AGE: 76 ADM/REG DATE : 09/01/16 MR#: [id number] REPORT SERV DATE: 09/14/16 DICTATED BY: GARRET PORTER DATE: 09/14/16 REPORT STATUS : Draft TRANSCRIBED BY: INES DATE: 09/14/16 NEUROLOGIC: She is alert, oriented, and appropriate. She is a little frail, but has no obvious focal deficits. LABORATORY DATA: White count 11.9, hemoglobin 9.5, MCV 88, and platelets 498. Chem panel with creatinine 1.06. Electrolytes normal. Albumin decreased to 2.1 recently. Recent ferritin was elevated over 300. Iron saturation was decreased at 9%. IMPRESSION: Ms Miller has ongoing hematuria and she has acquired factor VIII inhibitor that was previously diagnosed last year. The inhibitors have unfortunately undoubtedly become increasing titer with an increasing bleeding issues and also higher PTT levels that she had run in the past. Recombinant factor 8 products will be very short-lived if we give them to her and I would not recommend to use unless if we them emergently for massive bleeding or a surgical procedure. I think we will need to get her back on some immunosuppressive therapy and try and decrease the inhibitor titer. We will recheck the factor VIII activity level and also inhibitor levels for baseline purposes. We will start her back on prednisone at 1 mg/kg a day. We can also consider the use of Rituxan or other immunosuppressive therapy such as cyclophosphamide. Unfortunately, it will likely take some time to decrease the titers of these inhibitors and so anticipated transfusion support for the near future is expected. We may also consider giving her some intravenous iron to help keep up with her ongoing losses. We will follow with colleagues, and appreciate the chance to be of assistance. MS/MODL Garret Porter M.D. / [id number] CC: Dylon Fernandes M.D. Richard L Yap, M.D. Gregory R. Sutton, MD Froilan B. Joves, MD William Young Jr., M.D.
--- NOTE | ~2016-09-01 | IDS ---
Interim Discharge Summary [facility] [address] [place]. [address] NAME: JUAN CHARLES : 39 STATUS : ADM IN [facility]#: [id number] AGE: 76 ADM/REG DATE : 09/01/16 MR#: [id number] REPORT SERV DATE: 10/14/16 DICTATED BY: DATE: REPORT STATUS : Draft TRANSCRIBED BY: MODL DATE: 10/13/16 ADMISSION DATE: 09/01/2016 DISCHARGE DATE: DISCHARGE DATE: Unknown at this time. Interim discharge summary covers dates of service between 10/07/2016 and 10/13/2016. INTERIM DIAGNOSES: 1. Acute blood loss anemia on chronic anemia. 2. Hypertension. 3. Right groin hematoma, previously infected. 4. Factor VIII inhibitor. CONSULTATIONS: Occurring between 10/07/2016 and 10/13/2016: 1. Packed red blood cell transfusions on 10/07/2016, 10/10/2016, and 10/13/2016. 2. Factor VIII activity level result 29. Lab was collected 10/10/2016. HOSPITAL COURSE: Chief complaint upon admission, right groin swelling and pain. Please refer to history and physical dated 09/02/[address] David Bailey for details pertaining to patient's initial presentation upon admission and health history. Please refer to multiple interim discharge summaries and consultations occurring between the dates of service of 09/02/2016 and 10/06/2016 for additional details pertaining to patient's extended hospitalization secondary to factor VIII inhibitor in the setting of acute blood loss anemia. The patient was initially scheduled for potential discharge on 10/07/2016 or 10/08/2016 following the last dose of Rituxan. On 10/07/2016, RN reported that the patient produced two bowel movements, both tarry with visible red blood. Discharge was cancelled. The patient has a history of same with multiple GI diagnostic tests occurring within this admission with no endoscopic evidence for active bleed. NovoSeven was restarted per Oncology, and the patient has been transfused as indicated. 1. Acute blood loss anemia on chronic anemia. GI bleed appears to be slowing with no indication for additional GI workup. The patient is still producing one to three dark, black, formed stools with visible dark red blood surrounding stool. The patient's hemoglobin was 7.1 today, and the patient will receive one unit of packed red blood cells per Oncology. The patient will continue to receive NovoSeven under the direction of [facility]. 2. Hypertension, essential. The patient's blood pressure has remained stable throughout this admission, continue home blood medications to include amlodipine and benazepril. 3. Right groin hematoma with previous infection/bacteremia. The patient's antibiotic therapy ended 10/10/2016 and Infectious Disease has signed off. The patient will Interim Discharge Summary [address] [address] NAME: JUAN CHARLES : 39 STATUS : ADM IN PAT#: [id number] AGE: 76 ADM/REG DATE : 09/01/16 MR#: [id number] REPORT SERV DATE: 10/14/16 DICTATED BY: DATE: REPORT STATUS : Draft TRANSCRIBED BY: MODL DATE: 10/13/16 continue wound VAC therapy with dressing changes every Thursday, Thursday, and Thursday. Wound drainage has significantly decreased during this admission, and there have been no additional signs or symptoms of new infection. 4. Factor VIII inhibitor. This is managed per Dr. Palacios at [facility]. The patient's last dose of Cytoxan was 10/10/2016. Last dose of rituximab is scheduled for 10/14/2016 to complete a three-dose therapy. The patient will remain on prednisone and taper will not begin until factor VIII inhibitor activity level is at [address] Palacios. CURRENT PLAN AND DISPOSITION: 1. Discharge date is unclear at this time secondary to re-initiation of NovoSeven in the setting of acute blood loss anemia on 10/07/2016. 2. Discharge hopeful within the next 10 to 14 days if factor VIII inhibitor activity level trends to 0. 3. Patient will need home health care to include right groin wound management to include wound VAC. LIUDMILA/INES VIVI Irene / [id number]
--- NOTE | ~2016-09-01 | OP ---
Record Of Operation [facility] [address] [place]. [address] NAME: JUAN CHARLES : 39 STATUS : ADM IN PAT#: [id number] AGE: 76 ADM/REG DATE : 09/01/16 MR#: [id number] REPORT SERV DATE: 09/02/16 DICTATED BY: KAHLIL SADLER JR. DATE: 09/02/16 REPORT STATUS : Draft TRANSCRIBED BY: MODL DATE: 09/02/16 DATE OF PROCEDURE: 09/02/2016 PREOPERATIVE DIAGNOSIS: Right groin hematoma, status post right groin puncture for mesenteric embolization procedure. POSTOPERATIVE DIAGNOSIS: Right groin hematoma, status post right groin puncture for mesenteric embolization procedure. OPERATION: Right groin exploration, suture repair of hole in right common femoral artery. SURGEON: Kahlil Sadler M.D. HISTORY: This is a 76-year-old, black female, who apparently had a right groin arteriogram done one month ago according to her by Interventional Radiology for mesenteric bleed. The hope was they were going to embolize the bleeding source. By history, she says that she developed a hematoma approximately one week ago and it seems to be getting worse by the day. DESCRIPTION OF PROCEDURE: The patient was placed on the operating room table. She underwent a general endotracheal anesthetic. The right groin area was prepped and draped in the usual sterile manner. A vertical incision made over huge hematoma. A huge cavity was entered. The hematoma seemed to have dissected out from the groin onto the lower aspect of the right abdominal wall. Huge chunks of hematoma were evacuated which filled up a calix and must have been equivalent to 1 unit of clotted blood or more. There was faint bleeding from what appeared to be a hole in the artery. I then dissected down on this area. There appeared to be a closure device in this area. I then used a 4-0 Prolene suture to reinforce the closure device in the artery to keep this area from oozing. I then washed out the entire area. Cultures were done in case it was infected, although there was no pus seen. A drain was placed and brought out inferiorly. The subcutaneous tissue was closed with 3-0 Vicryl. The skin was closed with a running 3-0 nylon. The patient tolerated the procedure well. Was taken back to recovery room in fair condition. There were no intraoperative complications. ESTIMATED BLOOD LOSS: 500 mL of pure hematoma. DF/MODL Kahlil Sadler Jr., M.D. / [id number] CC: Record Of Operation [address] [address] NAME: JUAN CHARLES : 39 STATUS : ADM IN [facility]#: [id number] AGE: 76 ADM/REG DATE : 09/01/16 MR#: [id number] REPORT SERV DATE: 09/02/16 DICTATED BY: KALHIL SADLER JR. DATE: 09/02/16 REPORT STATUS : Draft TRANSCRIBED BY: MODMerrill DATE: 09/02/16 Dylon Machado M.D.
--- NOTE | ~2016-09-01 | IDS ---
Interim Discharge Summary [facility] [address] [place]. [address] NAME: JUAN CHARLES : 39 STATUS : ADM IN PAT#: [id number] AGE: 76 ADM/REG DATE : 09/01/16 MR#: [id number] REPORT SERV DATE: 10/20/16 DICTATED BY: FEDE LARSON DATE: 10/20/16 REPORT STATUS : Draft TRANSCRIBED BY: MODL DATE: 10/20/16 ADMISSION DATE: 09/01/2016 DISCHARGE DATE: Interim summary covers dates October 14 to October 20. CURRENT HOSPITAL DIAGNOSES: 1. Right groin hematoma, status post completion of course of antibiotics for infection and bacteremia. 2. Factor 8 inhibitor, status post Rituxan, steroids. 3. Hypertension. 4. Acute blood loss anemia. 5. Pancytopenia. HISTORY OF PRESENT ILLNESS: Please see full H and P for details regarding initial presentation. HOSPITAL COURSE: Please see multiple interim summaries as the patient's original admission date is 09/01/2016. In the past week, the patient has continued her NovoSeven which she was started for some blood in her stool upon previous attempts at withholding. Her last dose of NovoSeven was October 17. She will get a dose of Rituxan tomorrow. She has not had any additional bleeding since the holding of NovoSeven and her inhibitor levels have been followed by Oncology and have improved to close to normal. At this point, she will get Rituxan tomorrow and then possibly home with no further episodes of bleeding. She has a wound VAC to her right groin which is being changed Thursday, Thursday, and Thursday. Otherwise, she has been doing well. Oncology has been following. Plan will be discharge to home if tolerates Rituxan without any issues and no bleeding since holding of the NovoSeven since October 17. MARÍAK/INES Fede Larson MD / [id number] CC: MD Robert Mchugh M.D.
--- NOTE | ~2016-09-01 | EGD ---
EGD REPORT [facility] [address] [place] [address] NAME: JUAN MILLER : 39 STATUS : ADM IN PAT#: [id number] AGE: 76 ADM/REG DATE : 09/01/16 MR#: [id number] REPORT SERV DATE: 09/26/16 DICTATED BY: DATE: REPORT STATUS : Draft TRANSCRIBED BY: [employer] DATE: 09/26/16 Endoscopy Center Patient Name: Juan Miller Date of : 1940 Attending MD: BG HERNÁNDEZ MD Procedure Date No Time: 09/26/2016 Procedure: Upper GI endoscopy Indications: Melena Referring MD: RASHEEDA PATRICIO MD Medicines: Monitored Anesthesia Care Complications: No immediate complications. Procedure: Pre-Anesthesia Assessment: - ASA Grade Assessment: III - A patient with severe systemic disease. After obtaining informed consent, the endoscope was passed under direct vision. Throughout the procedure, the patient's blood pressure, pulse, and oxygen saturations were monitored continuously. The GIF [id number] was introduced through the mouth, and advanced to the jejunum. The upper GI endoscopy was accomplished without difficulty. The patient tolerated the procedure well. Findings: The examined jejunum was normal. The examined esophagus was normal. There is no endoscopic evidence of Toth's esophagus, bleeding, esophagitis, hiatus hernia, ulcerations or varices in the entire esophagus. The entire examined stomach was normal. There is no endoscopic evidence of hiatus hernia, inflammation, mucosal abnormalities, ulceration, varices, angioectasia or portal hypertension gastropathy in the entire examined stomach. The examined duodenum was normal. There is no endoscopic evidence of bleeding, mucosal abnormalities, ulceration or angioectasia in the entire examined duodenum. The examined jejunum was normal. The cardia and gastric fundus were normal on retroflexion. Impression: - Normal examined jejunum. - Normal esophagus. - Normal stomach. - Normal examined duodenum. - Normal examined jejunum. EGD REPORT [facility] [address] [place], [place] [address] [place]. [address] NAME: JUAN MILLER : 39 STATUS : ADM IN [facility]#: [id number] AGE: 76 ADM/REG DATE : 09/01/16 MR#: [id number] REPORT SERV DATE: 09/26/16 DICTATED BY: DATE: REPORT STATUS : Draft TRANSCRIBED BY: [employer] DATE: 09/26/16 Recommendation: - See colonoscopy report. Procedure Code(s): --- Professional --- 46468, Esophagogastroduodenoscopy, flexible, transoral; diagnostic, including collection of specimen(s) by brushing or washing, when performed (separate procedure) Diagnosis Code(s): --- Professional --- K92.1, Melena CPT copyright 2013 [employer]. All rights reserved. The codes documented in this report are preliminary and upon chief airport guide review may be revised to meet current compliance requirements. BG HERNÁNDEZ MD 09/26/2016 10:38 AM This report has been signed electronically. Number of Addenda: 0 Note Initiated On: 09/26/2016 9:32 AM Scope Withdrawal Time 0 hours 0 minutes [address] [facility] [place] [address]
--- NOTE | ~2016-09-01 | IDS ---
Interim Discharge Summary [facility] [address] [place]. [address] NAME: JUAN CHARLES : 38 STATUS : ADM IN [facility]#: [id number] AGE: 76 ADM/REG DATE : 09/01/16 MR#: [id number] REPORT SERV DATE: 09/07/16 DICTATED BY: ESTELLE GILLETTE DATE: 09/07/16 REPORT STATUS : Draft TRANSCRIBED BY: MODL DATE: 09/07/16 ADMISSION DATE: 09/01/2016 DISCHARGE DATE: INTERIM DIAGNOSES: 1. Right groin hematoma, status post evacuation and repair. 2. Acute blood loss anemia, status post 4 units of packed red blood cells. 3. Hypertension. 4. Status post acute kidney injury. 5. Status post hyponatremia. DIAGNOSTIC EXAMS: Chest x-ray showing fatty plaque on the right side. Prior trauma may explain changes in the lungs, but clear of acute pathology. CAT scan of the abdomen showing large hyperdense solid appearing mass in the right inguinal region, superficial to the right common artery and vein measuring 8 x 8.8 x 11 consistent with a hematoma, status post appendectomy, and small simple cysts in both kidneys. HOSPITAL COURSE: Please refer to the H and P done by Dr. Bailey dated on 09/02/2016. Briefly, this is a 76-year-old female, who comes in for right groin swelling. The patient has a history of hypertension, had a recent diverticular bleed requiring 7 units of packed RBC and an eventual embolization of the terminal iliac at celiac branches. The patient comes in for one to two week history of progressive worsening of the right inguinal swelling and pain. The patient was then admitted by Dr. Bailey and we got the above tests. Vascular Surgery was consulted and they did a right groin exploration and suture repair of the whole of the right common femoral artery. Despite this, the patient continued to lose blood and we believe that it is from the groin area. The nurses have changed a silk dressing on the right groin and even sandbag, the groin area for a while. The patient had required more blood transfusion even after the repair and Vascular Surgery has been following this. They were hoping that it would eventually stop and try to avoid further operation, but that would depend on whether the patient will still be bleeding from that site. The plan is to remove the JACQUELINE drain and ambulate the patient and hopefully that hemostasis is obtained. Meanwhile, her CLINTON had resolved. The blood pressure which was initially low-normal is now back to her baseline, which is high and the plan is that once we are assured that there is no more bleeding and the patient would eventually go home. Partner of mine will be following up the patient on Thursday. SLY/INES Estelle Gillette M.D. / [id number] CC: Interim Discharge Summary [address] [address] NAME: JUAN CHARLES : [birth year] STATUS : ADM IN [facility]#: [id number] AGE: 76 ADM/REG DATE : 09/01/16 MR#: [id number] REPORT SERV DATE: 09/07/16 DICTATED BY: ESTELLE GILLETTE DATE: 09/07/16 REPORT STATUS : Draft TRANSCRIBED BY: INES DATE: 09/07/16 Dylon Machado M.D.
--- NOTE | ~2016-09-01 | HP ---
History And Physical [place] [address] [facility] [place]. [address] NAME: JUAN MILLER : [birth year] STATUS : ADM IN [facility]#: [id number] AGE: 76 ADM/REG DATE : 09/01/16 MR#: [id number] REPORT SERV DATE: 09/02/16 DICTATED BY: SHIMON HUANG DATE: 09/01/16 REPORT STATUS : Draft TRANSCRIBED BY: MODMerrill DATE: 09/01/16 DATE OF ADMISSION: 09/01/2016 POINT OF ENTRY: [facility]. CHIEF COMPLAINT: Right groin swelling and pain. HISTORY OF PRESENT ILLNESS: Ms. Miller is a 76-year-old female with history of hypertension, hyperlipidemia, degenerative disk disease with osteoarthritis, as well as diverticulosis, who was recently admitted to our hospital for severe diverticular bleed requiring 7 units of packed red blood cell transfusion as well as an IR embolization of the terminal iliac and celiac branches, who presents to the emergency department today with a 1-2 week history of progressive worsening right inguinal and groin swelling and pain. The patient was admitted to the Hospitalist Service from 07/16/2016 through 07/24/2016 for severe lower GI bleed secondary to diverticulosis. She required 7 units of packed red blood cell transfusion and ultimately required IR embolization of the distal branches of the celiac and terminal iliac branches to control bleeding on the right side of the colon. The patient was seen in the ER shortly after her discharge for a right groin pain as well as discovery of a small knot in her groin inguinal region. At that time, a vascular ultrasound revealed a small 1 x 1 x 2 cm pseudoaneurysm, and she was discharged to home. The patient states that the pain and swelling in the right groin inguinal region has continued to worsen but has acutely worsened over the last 7-10 days. She denies any recent fevers, night sweats, chills, chest pain, cough, sputum production, shortness of breath, abdominal pain, nausea, vomiting, diarrhea, constipation, dysuria, melena, hematochezia, or hemoptysis. She does report a very poor appetite and resulting poor oral intake as well as severe pain in the right inguinal groin region that has prevented her from being able to ambulate any significant distance due to pain in that right leg. Comprehensive review of system otherwise negative unless listed in history of present illness. Initial evaluation in the emergency department was notable for a white count of 16,200, hemoglobin 6.9. CT scan of the abdomen and pelvis with IV contrast shows a large right inguinal region mass of 8 x 9 x 11 cm consistent with a hematoma with no active extravasation noted. She was subsequently admitted to the Hospitalist Service for further evaluation and management. PREVIOUS MEDICAL HISTORY: 1. Diverticulosis with significant diverticular bleed requiring 7 units of packed red blood cell transfusion as well as embolization. 2. Hypertension. 3. Hyperlipidemia. 4. Degenerative joint disease. 5. Osteoarthritis. History And Physical [address] [address] NAME: JUAN MILLER : 38 STATUS : ADM IN [facility]#: [id number] AGE: 76 ADM/REG DATE : 09/01/16 MR#: [id number] REPORT SERV DATE: 09/02/16 DICTATED BY: SHIMON HUANG DATE: 09/01/16 REPORT STATUS : Draft TRANSCRIBED BY: INES DATE: 09/01/16 6. History of acute blood loss anemia requiring 7 units of packed red blood cell transfusion. 7. Right common femoral pseudoaneurysm. SURGICAL HISTORY: 1. Right foot. 2. Appendectomy. 3. Right carpal tunnel. 4. Terminal iliac and celiac IR embolization for diverticular bleed. ALLERGIES: RED DYE. HOME MEDICATIONS: 1. Amlodipine and benazepril 5-21 tab daily. 2. Artificial Tears one drop p.r.n. both eyes. 3. Fenofibrate 67 mg daily. 4. Chelan 5/325 one tab t.i.d. p.r.n. 5. Ibuprofen 200 mg t.i.d. p.r.n. SOCIAL HISTORY: She denies any tobacco, alcohol, or illicits. FAMILY MEDICAL HISTORY: Mother with coronary artery disease. Father with cancer. Siblings with coronary artery disease. LABS AND IMAGIN. White count 16.7, hemoglobin 6.9, hematocrit 22.1, and platelet count is 600. INR is 1.2. 2. Sodium is 131, potassium 4.9, chloride 97, carbon dioxide 24, BUN 43, creatinine 1.77, glucose is 142, calcium is 9.2, and magnesium 2.5. 3. Troponin less than 0.02. 4. Lactic acid is 1.8. 5. Chest x-ray per my review shows no acute cardiopulmonary disease. 6. CT scan of the abdomen and pelvis shows a large hyperdense solid-appearing mass at the right inguinal region, superficial to the right common artery and vein measuring 8 x 8.8 x 11 cm, was consist with a hematoma which causes mild compression of the underlying common femoral vein. All the underlying common femoral artery is normally opacified. No active extravasation of contrast currently identified. There is a relatively recent appearing hematoma. No significant liquefaction of the suspected relatively recent hematoma currently visible. PHYSICAL EXAMINATION: VITAL SIGNS: Temperature is 97.8 degrees Fahrenheit, pulse is 92, respirations 16, and saturating 94% on room air. Blood pressure initially 100/60, on recheck is now 141/80. Heart rate of 102. GENERAL: The patient is awake, alert, in no acute distress. Resting comfortably in bed. She is a well-developed, well-nourished female. HEENT: Atraumatic and normocephalic. Moist mucous membranes. Pupils are equal, round, History And Physical [address] [address] NAME: JUAN MILLER : 38 STATUS : ADM IN [facility]#: [id number] AGE: 76 ADM/REG DATE : 09/01/16 MR#: [id number] REPORT SERV DATE: 09/02/16 DICTATED BY: SHIMON HUANG DATE: 09/01/16 REPORT STATUS : Draft TRANSCRIBED BY: MODL DATE: 09/01/16 reactive to light and accommodation. Extraocular eye movements intact. No scleral icterus. NECK: No jugular venous distention or carotid bruits. CARDIAC: Tachycardic rate, regular rhythm. No murmurs or gallops. Normal S1, S2. LUNGS: Clear to auscultation bilaterally. No wheezes, rhonchi, or rales. ABDOMEN: Soft, nontender, nondistended. Good bowel sounds. No rebound, guarding, or rigidity. EXTREMITIES: Warm, perfused. No cyanosis, clubbing, or edema. In her right inguinal groin region, there is a large approximately 9 x 10 x 8 cm area of swelling that is firm to palpation with some overlying erythema and warmth of the skin. There are palpable DP/PT pulses of the distal right lower extremity. SKIN: Warm and dry except for noted above. PSYCH: Affect appropriate. NEURO: Alert and oriented x3. Cranial nerves 2 through 12 grossly intact. Speech is normal. Gait not assessed. ASSESSMENT: Ms. Miller is a 76-year-old female who underwent recent celiac arterial embolization by Interventional Radiology who then subsequently developed a postprocedural pseudoaneurysm who now presents with worsening right groin swelling and found to have a large 8 x 9 x 10 cm hematoma with associated acute blood loss anemia, acute kidney injury, and leukocytosis, concerning for possible superinfection of the hematoma. PROBLEM LIST: 1. Right inguinal hematoma. 2. History of right common femoral pseudoaneurysm. 3. Acute blood loss anemia. 4. Leukocytosis. 5. Acute kidney injury. 6. Hyponatremia. 7. Concern for possible superinfected hematoma. 8. History of diverticulosis with significant lower GI bleed. 9. Hypertension. PLAN: 1. Right inguinal hematoma with a recent history of right common femoral pseudoaneurysm. Vascular Surgery was consulted. They recommended regardless of whether it is pseudoaneurysm versus hematoma that she be made nothing by mouth after midnight for possible either evacuation of hematoma or surgical intervention on this pseudoaneurysm. The patient currently has intact vasculature distally to the right lower extremity, and there is no evidence of any active extravasation at this time. 2. Acute blood loss anemia likely secondary to right inguinal hematoma with a recent history of right common femoral pseudoaneurysm. Given its large size, we will transfuse 2 units of packed red blood cell transfusion. Also, checking occult stool to ensure she has no GI source of her bleeding, although she does deny any symptoms. 3. Leukocytosis, concerning for possible infection of the hematoma. Chest x-ray is clear. Blood cultures have been obtained. Checking urinalysis. We will empirically place the patient on broad-spectrum antibiotics at this time. 4. Acute kidney injury likely secondary to poor oral intake as well as use of nephrotoxic History And Physical [address] [address] NAME: JUAN MILLER : 38 STATUS : ADM IN [facility]#: [id number] AGE: 76 ADM/REG DATE : 09/01/16 MR#: [id number] REPORT SERV DATE: 09/02/16 DICTATED BY: SHIMON HUANG DATE: 09/01/16 REPORT STATUS : Draft TRANSCRIBED BY: INES DATE: 09/01/16 medications of her antihypertensive as well as recent ibuprofen initiation. We will provide IV fluid hydration. Hold her nephrotoxic medications. Checking urine lytes. 5. History of diverticulosis with significant lower GI bleed. Checking occult stool, although she denies any recent melena or hematochezia. 6. DVT prophylaxis. NANCY's and SCD's given evidence of large hematoma. CODE STATUS: The patient wishes to be full code. COLLEEN/INES Shimon Huang MD / [id number] CC: MD Robert Murray M.D.
--- NOTE | ~2016-09-01 | CN ---
Consultation Report [facility] [address] [place]. [address] NAME: JUAN MILLER : 39 STATUS : ADM IN [facility]#: [id number] AGE: 76 ADM/REG DATE : 09/01/16 MR#: [id number] REPORT SERV DATE: 09/09/16 DICTATED BY: JOSE DE LEÓN JR. DATE: 09/09/16 REPORT STATUS : Draft TRANSCRIBED BY: INES DATE: 09/09/16 CONSULT NOTE DATE OF CONSULTATION: 09/09/2016 CHIEF COMPLAINT: Gross hematuria, possible urinary retention. HISTORY OF PRESENT ILLNESS: Mrs. Miller is a 76-year-old female, who was admitted on 09/01 with a large right groin hematoma after Interventional Radiology embolized a diverticular hemorrhage that she had been admitted for before. Menard catheter was placed at the time of her admission and during her admission, she developed gross hematuria, which has been worsening over the last few days. She had a culture done on 09/05, which was negative for infection. She had a CT scan of the abdomen and pelvis, which did not reveal any potential sources for the urologic hemorrhage. She had normal kidneys other than some simple appearing cysts and her bladder appeared normal. She does not have any prior urologic history. PAST MEDICAL HISTORY: Significant for the above mentioned diverticulosis with diverticular hemorrhage, hypertension, hyperlipidemia, DJD, osteoarthritis, acute blood loss anemia, and right common femoral pseudoaneurysm. PAST SURGICAL HISTORY: Right foot surgery, appendectomy, right carpal tunnel, internal iliac and celiac IR embolization for diverticular bleed, and repair of right femoral pseudoaneurysm this admission. ALLERGIES: RED DYE. HOME MEDICATIONS: Include amlodipine, Artificial Tears, fenofibrate, [place], and ibuprofen. SOCIAL HISTORY: She denies tobacco, alcohol, or illicit drug use. FAMILY HISTORY: Mother with coronary artery disease. Father with cancer. Siblings with coronary artery disease. REVIEW OF SYSTEMS: A 14 system review was performed, essentially negative other than that stated above. Significant negatives include no nausea, no vomiting, no chest pain, no shortness of breath. No pelvic pain. No frequency, dysuria, or urgency prior to Menard catheter placement. PHYSICAL EXAMINATION: GENERAL: She is a well-nourished, well-developed female, in no acute distress. VITAL SIGNS: She is afebrile. Her vital signs are stable. HEENT: Normocephalic and atraumatic. NECK: Symmetric. Consultation Report [facility] [place] [address] NAME: JUAN MILLER : 39 STATUS : ADM IN PAT#: [id number] AGE: 76 ADM/REG DATE : 09/01/16 MR#: [id number] REPORT SERV DATE: 09/09/16 DICTATED BY: JOSE DE LEÓN JR. DATE: 09/09/16 REPORT STATUS : Draft TRANSCRIBED BY: INES DATE: 09/09/16 CHEST: Clear to auscultation bilaterally. HEART: Regular rate and rhythm. ABDOMEN: Soft, nontender, nondistended without palpable hernias. GENITOURINARY: Shows normal female external genitalia with a Menard catheter in place, draining grossly bloody urine. The right groin hematoma was noted on exam. LABORATORY DATA: Hemoglobin today of 7.6 with hematocrit of 23.5. Electrolytes last checked on the were within normal limits. BUN of 14 and creatinine 0.89. IMAGING: CT scan as per the above. ASSESSMENT: Gross hematuria with possible urinary retention. RECOMMENDATIONS: We will exchange the Menard catheter for 20-Sami three-way Menard catheter. Start CBI and hand irrigate p.r.n. She may require cysto with clot evacuation as well. If her urine does not clear over the next few days, we will plan cystoscopy here in the hospital. If it does, then we will plan cystoscopy and upper tract imaging with contrast as an outpatient. We will also send urine for cytology when it clears. XANDER/INES Jose De León Jr., M.D. / [id number] CC: Dylon Machado M.D.
[2016-09-01 18:38] LABS: BASOPHILS 0.6 %; EOSINOPHILS 0.5 %; EOSINOPHILS ABSOLUTE 0.08 10/3/uL (0.0-0.53); IMMATURE GRANULOCYTES 7.7 %; IMMATURE GRANULOCYTES ABSOLUTE 1.29 10/3/uL (0.0-0.11); LYMPHOCYTES 9.9 %; LYMPHOCYTES ABSOLUTE 1.65 10/3/uL (0.67-4.30); MEAN CORPUS HGB CONC 31.2 g/dL (32.0-36.0); MEAN CORPUSCULAR HEMOGLOB 26.5 pg (26.0-34.0); MEAN PLATELET VOLUME 9.5 fL (9.2-13.0); MONOCYTES 9.5 %; MONOCYTES ABSOLUTE 1.59 10/3/uL (0.21-1.20); NEUTROPHILS 71.8 %; NEUTROPHILS ABSOLUTE 11.98 10/3/uL (2.02-8.40); NUCLEATED RED BLOOD CELLS 0.5 /100WBC (0-0); PLATELET COUNT 600 10/3/uL (150-400); RBC DISTRIBUTION WIDTH 16.9 % (12.0-16.0)
[2016-09-01 18:40] LABS: ER CBC TAT 0 Hrs 13 Mins; HEMATOCRIT 22.1 % (36.0-48.0); HEMOGLOBIN 6.9 g/dL (12.0-16.0); WHITE BLOOD CELLS 16.7 10/3/uL (4.5-10.5)
[2016-09-01 18:41] LABS: INTERNATIONAL NORMAL RATI 1.2 UNITS (-); MANUAL DIFF NO %
[2016-09-01 18:42] LABS: PARTIAL THROMBO TIME 87.6 SEC (22.5-37.2)
[2016-09-01 18:49] LABS: CALCIUM, SERUM 9.2 MG/DL (8.5-10.4); CHEST PAIN PROFILE TAT 0 Hrs 22 Mins; CO2 (CARBON DIOXIDE) 24 MMOL/L (24-34); GFR AFRICAN AMERICAN 32 ML/MIN (>=60); GFR NON AFRICAN AMERICAN 27 ML/MIN (>=60); GLUCOSE, SERUM 102 MG/DL (60-99); TROPONIN I <0.02 NG/ML (<0.05)
[2016-09-01 18:50] LABS: CHLORIDE, SERUM 97 MMOL/L (96-112); POTASSIUM, SERUM 4.9 MMOL/L (3.5-5.3); SODIUM, SERUM 131 MMOL/L (135-148)
[2016-09-01 18:51] LABS: BUN (BLOOD UREA NITROGEN) 43 MG/DL (6-23); CREATININE 1.77 MG/DL (0.55-1.02)
[~2016-09-01 19:10] MED LIST: ADVIL PO; KONSYL100 % PO; LOFIB67 PO; LOTREL1 CA2 PO; NORCO1 TA1 PO; REFRESH OPH; REQUIP5 PO; [UNRECOGNIZED DRUG - REMARK] PO
[2016-09-01 19:13] LABS: BAND NEUTROPHILS 2 %; EOSINOPHILS 2 %; ER DIFF TAT 0 Hrs 46 Mins; LYMPHOCYTES 11 %; MONOCYTES 9 %; SEGMENTED NEUTROPHIL (0) 76 %; TOTAL NUCLEATED CELLS 100
[2016-09-01 19:19] LABS: PLATELET ESTIMATE INC (ADEQUATE)
[2016-09-01 19:21] LABS: HYPOCHROMIA 1+ (3-10/OIF) (0-2/OIF)
[2016-09-02 00:45] LABS: ASCORBIC ACID (UR NOT ORDER) NEG (NEG); BILIRUBIN, URINE NEGATIVE (NEG); ER URINALYSIS TAT 0 Hrs 00 Mins; KETONE, URINE NEGATIVE (NEG); LEUKOCYTE ESTERASE(NOT OR NEG (NEG); NITRITE (URINE) NEG (NEG); WBC (NOT ORDERED) (RFLEX) < 1 (0-5)
[2016-09-02 10:50] LABS: MEAN CORPUS HGB CONC 32.3 g/dL (32.0-36.0); MEAN CORPUSCULAR HEMOGLOB 27.9 pg (26.0-34.0); MEAN CORPUSCULAR VOLUME 86.2 fL (80-100); NUCLEATED RED BLOOD CELLS 1.1 /100WBC (0-0); PLATELET COUNT 532 10/3/uL (150-400); RBC DISTRIBUTION WIDTH 15.7 % (12.0-16.0); RED CELL COUNT 3.12 10/6/uL (4.0-5.6); WHITE BLOOD CELLS 14.8 10/3/uL (4.5-10.5)
[2016-09-02 10:51] LABS: INTERNATIONAL NORMAL RATI 1.2 UNITS (-); PROTIME (NOT ORD) 15.3 SEC (12.0-14.5)
[2016-09-02 10:52] LABS: HEMATOCRIT 26.9 % (36.0-48.0); HEMOGLOBIN 8.7 g/dL (12.0-16.0); MANUAL DIFF YES %
[2016-09-02 10:56] LABS: ALBUMIN 2.1 G/DL (3.5-5.0); BUN (BLOOD UREA NITROGEN) 31 MG/DL (6-23); CALCIUM, SERUM 8.5 MG/DL (8.5-10.4); CHLORIDE, SERUM 106 MMOL/L (96-112); CO2 (CARBON DIOXIDE) 23 MMOL/L (24-34); CREATININE 1.15 MG/DL (0.55-1.02); GFR AFRICAN AMERICAN 53 ML/MIN (>=60); GFR NON AFRICAN AMERICAN 46 ML/MIN (>=60); GLUCOSE, SERUM 89 MG/DL (60-99); PHOSPHORUS, SERUM 3.2 MG/DL (2.5-4.5); POTASSIUM, SERUM 4.7 MMOL/L (3.5-5.3); SODIUM, SERUM 139 MMOL/L (135-148)
[2016-09-02 11:20] LABS: LYMPHOCYTES 13 %; LYMPHOCYTES ABSOLUTE (CALC) 1.92 10/3/uL (0.67-4.30); METAMYELOCYTES 2 %; MONOCYTES 7 %; MONOCYTES ABSOLUTE (CALC) 1.04 10/3/uL (0.21-1.20); NEUTROPHILS ABSOLUTE (CALC) 11.54 10/3/uL (2.02-8.40); PLATELET ESTIMATE INC (ADEQUATE); SEGMENTED NEUTROPHIL (0) 78 %; TOTAL NUCLEATED CELLS 100
[2016-09-02 11:21] LABS: RBC MORPHOLOGY NORM (NORMAL)
[2016-09-02 17:05] LABS: HEMATOCRIT 26.2 % (36.0-48.0); HEMOGLOBIN 8.7 g/dL (12.0-16.0)
[2016-09-02 22:06] LABS: HEMATOCRIT 26.3 % (36.0-48.0); HEMOGLOBIN 8.6 g/dL (12.0-16.0)
[2016-09-03 06:10] LABS: HEMATOCRIT 23.8 % (36.0-48.0); HEMOGLOBIN 7.6 g/dL (12.0-16.0); MEAN CORPUS HGB CONC 31.9 g/dL (32.0-36.0); MEAN CORPUSCULAR HEMOGLOB 27.8 pg (26.0-34.0); MEAN CORPUSCULAR VOLUME 87.2 fL (80-100); NUCLEATED RED BLOOD CELLS 1.7 /100WBC (0-0); PLATELET COUNT 514 10/3/uL (150-400); RBC DISTRIBUTION WIDTH 16.6 % (12.0-16.0); RED CELL COUNT 2.73 10/6/uL (4.0-5.6); WHITE BLOOD CELLS 13.9 10/3/uL (4.5-10.5)
[2016-09-03 06:12] LABS: MANUAL DIFF YES %
[2016-09-03 06:13] LABS: CALCIUM, SERUM 8.4 MG/DL (8.5-10.4); CHLORIDE, SERUM 107 MMOL/L (96-112); CO2 (CARBON DIOXIDE) 23 MMOL/L (24-34); CREATININE 1.13 MG/DL (0.55-1.02); GFR AFRICAN AMERICAN 54 ML/MIN (>=60); GFR NON AFRICAN AMERICAN 47 ML/MIN (>=60); GLUCOSE, SERUM 85 MG/DL (60-99); POTASSIUM, SERUM 4.5 MMOL/L (3.5-5.3); SODIUM, SERUM 140 MMOL/L (135-148)
[2016-09-03 06:18] LABS: BUN (BLOOD UREA NITROGEN) 22 MG/DL (6-23)
[2016-09-03 06:38] LABS: EOSINOPHILS 2 %; EOSINOPHILS ABSOLUTE (CALC) 0.28 10/3/uL (0.0-0.53); IMMATURE GRANS ABSOLUTE (CALC) 0.28 10/3/uL (0.0-0.11); LYMPHOCYTES 20 %; LYMPHOCYTES ABSOLUTE (CALC) 2.78 10/3/uL (0.67-4.30); METAMYELOCYTES 2 %; MONOCYTES 9 %; MONOCYTES ABSOLUTE (CALC) 1.25 10/3/uL (0.21-1.20); NEUTROPHILS ABSOLUTE (CALC) 9.31 10/3/uL (2.02-8.40); SEGMENTED NEUTROPHIL (0) 67 %; TOTAL NUCLEATED CELLS 100
[2016-09-03 06:41] LABS: BURR CELLS 1+ (3-10/OIF) (0-2/OIF); PLATELET ESTIMATE INC (ADEQUATE); TEARDROP SHAPED RBCS OCC (0-2/OIF)
[2016-09-03 06:42] LABS: POLYCHROMASIA 1+ (2-5/OIF) (0-1/OIF)
[2016-09-04 06:48] LABS: HEMATOCRIT 24.5 % (36.0-48.0); HEMOGLOBIN 7.7 g/dL (12.0-16.0); MEAN CORPUS HGB CONC 31.4 g/dL (32.0-36.0); MEAN CORPUSCULAR VOLUME 89.1 fL (80-100); MEAN PLATELET VOLUME 8.8 fL (9.2-13.0); NUCLEATED RED BLOOD CELLS 0.5 /100WBC (0-0); PLATELET COUNT 586 10/3/uL (150-400); RBC DISTRIBUTION WIDTH 16.7 % (12.0-16.0); RED CELL COUNT 2.75 10/6/uL (4.0-5.6); WHITE BLOOD CELLS 16.1 10/3/uL (4.5-10.5)
[2016-09-04 06:51] LABS: MANUAL DIFF YES %
[2016-09-04 06:51] LABS: INTERNATIONAL NORMAL RATI 1.3 UNITS (-); PROTIME (NOT ORD) 16.4 SEC (12.0-14.5)
[2016-09-04 07:05] LABS: BUN (BLOOD UREA NITROGEN) 14 MG/DL (6-23); CALCIUM, SERUM 9.1 MG/DL (8.5-10.4); CHLORIDE, SERUM 108 MMOL/L (96-112); CO2 (CARBON DIOXIDE) 20 MMOL/L (24-34); CREATININE 0.89 MG/DL (0.55-1.02); GFR AFRICAN AMERICAN 72 ML/MIN (>=60); GFR NON AFRICAN AMERICAN 63 ML/MIN (>=60); GLUCOSE, SERUM 95 MG/DL (60-99); POTASSIUM, SERUM 4.2 MMOL/L (3.5-5.3); SODIUM, SERUM 141 MMOL/L (135-148)
[2016-09-04 07:11] LABS: BAND NEUTROPHILS 3 %; IMMATURE GRANS ABSOLUTE (CALC) 0.97 10/3/uL (0.0-0.11); LYMPHOCYTES 21 %; LYMPHOCYTES ABSOLUTE (CALC) 3.38 10/3/uL (0.67-4.30); METAMYELOCYTES 3 %; MONOCYTES 8 %; MONOCYTES ABSOLUTE (CALC) 1.29 10/3/uL (0.21-1.20); MYELOCYTES 3 %; NEUTROPHILS ABSOLUTE (CALC) 10.47 10/3/uL (2.02-8.40); PLATELET ESTIMATE SLT INC (ADEQUATE); POLYCHROMASIA 1+ (2-5/OIF) (0-1/OIF); SEGMENTED NEUTROPHIL (0) 62 %; TOTAL NUCLEATED CELLS 100
[2016-09-05 06:37] LABS: HEMOGLOBIN 7.5 g/dL (12.0-16.0); MEAN CORPUS HGB CONC 31.3 g/dL (32.0-36.0); MEAN CORPUSCULAR HEMOGLOB 27.8 pg (26.0-34.0); MEAN CORPUSCULAR VOLUME 88.9 fL (80-100); NUCLEATED RED BLOOD CELLS 0.5 /100WBC (0-0); PLATELET COUNT 627 10/3/uL (150-400); RBC DISTRIBUTION WIDTH 16.8 % (12.0-16.0); WHITE BLOOD CELLS 18.3 10/3/uL (4.5-10.5)
[2016-09-05 06:39] LABS: MANUAL DIFF YES %
[2016-09-05 07:13] LABS: BAND NEUTROPHILS 7 %; EOSINOPHILS 1 %; EOSINOPHILS ABSOLUTE (CALC) 0.18 10/3/uL (0.0-0.53); HYPOCHROMIA 1+ (3-10/OIF) (0-2/OIF); IMMATURE GRANS ABSOLUTE (CALC) 1.28 10/3/uL (0.0-0.11); LYMPHOCYTES 15 %; LYMPHOCYTES ABSOLUTE (CALC) 2.75 10/3/uL (0.67-4.30); METAMYELOCYTES 6 %; MONOCYTES 3 %; MONOCYTES ABSOLUTE (CALC) 0.55 10/3/uL (0.21-1.20); MYELOCYTES 1 %; NEUTROPHILS ABSOLUTE (CALC) 13.54 10/3/uL (2.02-8.40); PLATELET ESTIMATE INC (ADEQUATE); SEGMENTED NEUTROPHIL (0) 67 %; TOTAL NUCLEATED CELLS 100
[2016-09-05 07:14] LABS: ANISOCYTOSIS 1+ (5-10/OIF) (0-5/OIF); TARGET CELLS OCC (1-2/OIF) (0-1/OIF)
[2016-09-05 10:52] LABS: CALCIUM, SERUM 8.7 MG/DL (8.5-10.4); CHLORIDE, SERUM 103 MMOL/L (96-112); CO2 (CARBON DIOXIDE) 24 MMOL/L (24-34); CREATININE 0.85 MG/DL (0.55-1.02); GFR AFRICAN AMERICAN 77 ML/MIN (>=60); GFR NON AFRICAN AMERICAN 66 ML/MIN (>=60); GLUCOSE, SERUM 94 MG/DL (60-99); POTASSIUM, SERUM 4.1 MMOL/L (3.5-5.3); SODIUM, SERUM 135 MMOL/L (135-148)
[2016-09-05 10:53] LABS: BUN (BLOOD UREA NITROGEN) 10 MG/DL (6-23)
[2016-09-05 12:29] LABS: ASCORBIC ACID (UR NOT ORDER) NEG (NEG); BILIRUBIN, URINE NEGATIVE (NEG); KETONE, URINE NEGATIVE (NEG); LEUKOCYTE ESTERASE(NOT OR LARGE (NEG); WBC (NOT ORDERED) (RFLEX) 66 (0-5)
[2016-09-06 06:21] LABS: MEAN CORPUS HGB CONC 32.4 g/dL (32.0-36.0); MEAN CORPUSCULAR HEMOGLOB 28.4 pg (26.0-34.0); MEAN CORPUSCULAR VOLUME 87.9 fL (80-100); MEAN PLATELET VOLUME 8.6 fL (9.2-13.0); PLATELET COUNT 534 10/3/uL (150-400); RBC DISTRIBUTION WIDTH 16.4 % (12.0-16.0); RED CELL COUNT 2.32 10/6/uL (4.0-5.6)
[2016-09-06 06:23] LABS: HEMATOCRIT 20.4 % (36.0-48.0); HEMOGLOBIN 6.6 g/dL (12.0-16.0); MANUAL DIFF YES %
[2016-09-06 07:40] LABS: BAND NEUTROPHILS 7 %; IMMATURE GRANS ABSOLUTE (CALC) 0.45 10/3/uL (0.0-0.11); LYMPHOCYTES 13 %; LYMPHOCYTES ABSOLUTE (CALC) 1.95 10/3/uL (0.67-4.30); METAMYELOCYTES 3 %; MONOCYTES 5 %; MONOCYTES ABSOLUTE (CALC) 0.75 10/3/uL (0.21-1.20); NEUTROPHILS ABSOLUTE (CALC) 11.85 10/3/uL (2.02-8.40); SEGMENTED NEUTROPHIL (0) 72 %; TOTAL NUCLEATED CELLS 100
[2016-09-06 07:41] LABS: PLATELET ESTIMATE SLT INC (ADEQUATE)
[2016-09-06 07:42] LABS: ROULEAUX FORMATION 1+
[2016-09-07 05:50] LABS: MEAN CORPUS HGB CONC 32.8 g/dL (32.0-36.0); MEAN CORPUSCULAR HEMOGLOB 28.5 pg (26.0-34.0); MEAN CORPUSCULAR VOLUME 86.7 fL (80-100); MEAN PLATELET VOLUME 8.8 fL (9.2-13.0); NUCLEATED RED BLOOD CELLS 0.4 /100WBC (0-0); PLATELET COUNT 489 10/3/uL (150-400); RBC DISTRIBUTION WIDTH 15.4 % (12.0-16.0); WHITE BLOOD CELLS 16.1 10/3/uL (4.5-10.5)
[2016-09-07 06:04] LABS: HEMATOCRIT 26.8 % (36.0-48.0); HEMOGLOBIN 8.8 g/dL (12.0-16.0); MANUAL DIFF YES %; RED CELL COUNT 3.09 10/6/uL (4.0-5.6)
[2016-09-07 07:39] LABS: BAND NEUTROPHILS 9 %; EOSINOPHILS 1 %; EOSINOPHILS ABSOLUTE (CALC) 0.16 10/3/uL (0.0-0.53); IMMATURE GRANS ABSOLUTE (CALC) 0.48 10/3/uL (0.0-0.11); LYMPHOCYTES 13 %; LYMPHOCYTES ABSOLUTE (CALC) 2.09 10/3/uL (0.67-4.30); METAMYELOCYTES 3 %; MONOCYTES 5 %; MONOCYTES ABSOLUTE (CALC) 0.81 10/3/uL (0.21-1.20); NEUTROPHILS ABSOLUTE (CALC) 12.56 10/3/uL (2.02-8.40); PLATELET ESTIMATE SLT INC (ADEQUATE); RBC MORPHOLOGY NORM (NORMAL); SEGMENTED NEUTROPHIL (0) 69 %; TOTAL NUCLEATED CELLS 100
[2016-09-08 06:08] LABS: HEMOGLOBIN 8.2 g/dL (12.0-16.0); MEAN CORPUS HGB CONC 34.2 g/dL (32.0-36.0); MEAN CORPUSCULAR HEMOGLOB 29.7 pg (26.0-34.0); MEAN PLATELET VOLUME 8.6 fL (9.2-13.0); PLATELET COUNT 488 10/3/uL (150-400); RBC DISTRIBUTION WIDTH 15.7 % (12.0-16.0); RED CELL COUNT 2.76 10/6/uL (4.0-5.6); WHITE BLOOD CELLS 21.2 10/3/uL (4.5-10.5)
[2016-09-08 06:13] LABS: MANUAL DIFF YES %
[2016-09-08 06:42] LABS: BAND NEUTROPHILS 4 %; HYPOCHROMIA 1+ (3-10/OIF) (0-2/OIF); IMMATURE GRANS ABSOLUTE (CALC) 1.06 10/3/uL (0.0-0.11); LYMPHOCYTES 5 %; LYMPHOCYTES ABSOLUTE (CALC) 1.06 10/3/uL (0.67-4.30); METAMYELOCYTES 4 %; MONOCYTES 5 %; MONOCYTES ABSOLUTE (CALC) 1.06 10/3/uL (0.21-1.20); MYELOCYTES 1 %; NEUTROPHILS ABSOLUTE (CALC) 18.02 10/3/uL (2.02-8.40); OVALOCYTES 1+ (3-10/OIF) (0-2/OIF); PLATELET ESTIMATE INC (ADEQUATE); SEGMENTED NEUTROPHIL (0) 81 %; SPHEROCYTES OCC (0-2/OIF); TOTAL NUCLEATED CELLS 100
[2016-09-09 05:15] LABS: HEMATOCRIT 23.9 % (36.0-48.0); HEMOGLOBIN 7.6 g/dL (12.0-16.0); MANUAL DIFF YES %; MEAN CORPUS HGB CONC 31.8 g/dL (32.0-36.0); MEAN CORPUSCULAR HEMOGLOB 27.8 pg (26.0-34.0); MEAN CORPUSCULAR VOLUME 87.5 fL (80-100); MEAN PLATELET VOLUME 8.9 fL (9.2-13.0); PLATELET COUNT 505 10/3/uL (150-400); RBC DISTRIBUTION WIDTH 15.6 % (12.0-16.0); RED CELL COUNT 2.73 10/6/uL (4.0-5.6); WHITE BLOOD CELLS 13.6 10/3/uL (4.5-10.5)
[2016-09-09 05:33] LABS: ANISOCYTOSIS 1+ (5-10/OIF) (0-5/OIF); BAND NEUTROPHILS 6 %; EOSINOPHILS 4 %; EOSINOPHILS ABSOLUTE (CALC) 0.54 10/3/uL (0.0-0.53); IMMATURE GRANS ABSOLUTE (CALC) 0.41 10/3/uL (0.0-0.11); LYMPHOCYTES 14 %; METAMYELOCYTES 3 %; MONOCYTES 3 %; MONOCYTES ABSOLUTE (CALC) 0.41 10/3/uL (0.21-1.20); NEUTROPHILS ABSOLUTE (CALC) 10.34 10/3/uL (2.02-8.40); PLATELET ESTIMATE INC (ADEQUATE); POLYCHROMASIA 1+ (2-5/OIF) (0-1/OIF); SEGMENTED NEUTROPHIL (0) 70 %; TOTAL NUCLEATED CELLS 100
[2016-09-09 12:11] LABS: HEMATOCRIT 23.5 % (36.0-48.0); HEMOGLOBIN 7.6 g/dL (12.0-16.0)
[2016-09-09 15:35] LABS: % IRON SAT 9 % (20-50); FERRITIN 363 NG/ML (8-252); IRON BINDING CAPACITY 287 MCG/DL (225-410); IRON, SERUM 27 MCG/DL (35-150)
[2016-09-10 05:55] LABS: BASOPHILS 0.5 %; BASOPHILS ABSOLUTE 0.05 10/3/uL (0.0-0.16); EOSINOPHILS 2.2 %; EOSINOPHILS ABSOLUTE 0.24 10/3/uL (0.0-0.53); HEMATOCRIT 23.7 % (36.0-48.0); HEMOGLOBIN 7.5 g/dL (12.0-16.0); IMMATURE GRANULOCYTES 1.5 %; IMMATURE GRANULOCYTES ABSOLUTE 0.16 10/3/uL (0.0-0.11); LYMPHOCYTES 15.1 %; LYMPHOCYTES ABSOLUTE 1.63 10/3/uL (0.67-4.30); MANUAL DIFF NO %; MEAN CORPUS HGB CONC 31.6 g/dL (32.0-36.0); MEAN CORPUSCULAR HEMOGLOB 28.2 pg (26.0-34.0); MEAN CORPUSCULAR VOLUME 89.1 fL (80-100); MEAN PLATELET VOLUME 8.5 fL (9.2-13.0); MONOCYTES 10.6 %; MONOCYTES ABSOLUTE 1.15 10/3/uL (0.21-1.20); NEUTROPHILS 70.1 %; NEUTROPHILS ABSOLUTE 7.58 10/3/uL (2.02-8.40); PLATELET COUNT 559 10/3/uL (150-400); RBC DISTRIBUTION WIDTH 15.7 % (12.0-16.0); RED CELL COUNT 2.66 10/6/uL (4.0-5.6); WHITE BLOOD CELLS 10.8 10/3/uL (4.5-10.5)
[2016-09-10 06:07] LABS: BUN (BLOOD UREA NITROGEN) 9 MG/DL (6-23); CALCIUM, SERUM 8.6 MG/DL (8.5-10.4); CHLORIDE, SERUM 106 MMOL/L (96-112); CO2 (CARBON DIOXIDE) 24 MMOL/L (24-34); CREATININE 0.73 MG/DL (0.55-1.02); GFR AFRICAN AMERICAN 92 ML/MIN (>=60); GFR NON AFRICAN AMERICAN 79 ML/MIN (>=60); GLUCOSE, SERUM 91 MG/DL (60-99); POTASSIUM, SERUM 3.8 MMOL/L (3.5-5.3); SODIUM, SERUM 139 MMOL/L (135-148)
[2016-09-11 06:08] LABS: HEMATOCRIT 22.8 % (36.0-48.0); HEMOGLOBIN 7.1 g/dL (12.0-16.0); MANUAL DIFF YES %; MEAN CORPUS HGB CONC 31.1 g/dL (32.0-36.0); MEAN CORPUSCULAR HEMOGLOB 27.7 pg (26.0-34.0); MEAN CORPUSCULAR VOLUME 89.1 fL (80-100); MEAN PLATELET VOLUME 8.7 fL (9.2-13.0); PLATELET COUNT 589 10/3/uL (150-400); RBC DISTRIBUTION WIDTH 15.5 % (12.0-16.0); RED CELL COUNT 2.56 10/6/uL (4.0-5.6); WHITE BLOOD CELLS 13.6 10/3/uL (4.5-10.5)
[2016-09-11 06:12] LABS: BUN (BLOOD UREA NITROGEN) 10 MG/DL (6-23); CALCIUM, SERUM 8.5 MG/DL (8.5-10.4); CHLORIDE, SERUM 103 MMOL/L (96-112); CO2 (CARBON DIOXIDE) 24 MMOL/L (24-34); CREATININE 0.98 MG/DL (0.55-1.02); GFR AFRICAN AMERICAN 64 ML/MIN (>=60); GFR NON AFRICAN AMERICAN 56 ML/MIN (>=60); GLUCOSE, SERUM 84 MG/DL (60-99); POTASSIUM, SERUM 4.1 MMOL/L (3.5-5.3); SODIUM, SERUM 137 MMOL/L (135-148)
[2016-09-11 06:31] LABS: BAND NEUTROPHILS 1 %; EOSINOPHILS 1 %; EOSINOPHILS ABSOLUTE (CALC) 0.14 10/3/uL (0.0-0.53); LYMPHOCYTES 10 %; LYMPHOCYTES ABSOLUTE (CALC) 1.36 10/3/uL (0.67-4.30); MONOCYTES 6 %; MONOCYTES ABSOLUTE (CALC) 0.82 10/3/uL (0.21-1.20); NEUTROPHILS ABSOLUTE (CALC) 11.29 10/3/uL (2.02-8.40); PLATELET ESTIMATE SLT INC (ADEQUATE); POLYCHROMASIA 1+ (2-5/OIF) (0-1/OIF); SEGMENTED NEUTROPHIL (0) 82 %; TOTAL NUCLEATED CELLS 100
[2016-09-12 06:08] LABS: BASOPHILS 0.4 %; BASOPHILS ABSOLUTE 0.06 10/3/uL (0.0-0.16); EOSINOPHILS 1.2 %; EOSINOPHILS ABSOLUTE 0.18 10/3/uL (0.0-0.53); HEMATOCRIT 22.1 % (36.0-48.0); HEMOGLOBIN 6.9 g/dL (12.0-16.0); IMMATURE GRANULOCYTES 1.2 %; IMMATURE GRANULOCYTES ABSOLUTE 0.18 10/3/uL (0.0-0.11); LYMPHOCYTES 15.4 %; MEAN CORPUS HGB CONC 31.2 g/dL (32.0-36.0); MEAN CORPUSCULAR HEMOGLOB 27.9 pg (26.0-34.0); MEAN CORPUSCULAR VOLUME 89.5 fL (80-100); MEAN PLATELET VOLUME 8.2 fL (9.2-13.0); MONOCYTES 9.9 %; MONOCYTES ABSOLUTE 1.54 10/3/uL (0.21-1.20); NEUTROPHILS 71.9 %; NEUTROPHILS ABSOLUTE 11.22 10/3/uL (2.02-8.40); PLATELET COUNT 546 10/3/uL (150-400); RBC DISTRIBUTION WIDTH 15.8 % (12.0-16.0); RED CELL COUNT 2.47 10/6/uL (4.0-5.6); WHITE BLOOD CELLS 15.6 10/3/uL (4.5-10.5)
[2016-09-12 06:09] LABS: MANUAL DIFF NO %
[2016-09-12 06:20] LABS: BUN (BLOOD UREA NITROGEN) 14 MG/DL (6-23); CALCIUM, SERUM 8.2 MG/DL (8.5-10.4); CHLORIDE, SERUM 102 MMOL/L (96-112); CO2 (CARBON DIOXIDE) 25 MMOL/L (24-34); CREATININE 1.19 MG/DL (0.55-1.02); GFR AFRICAN AMERICAN 51 ML/MIN (>=60); GFR NON AFRICAN AMERICAN 44 ML/MIN (>=60); GLUCOSE, SERUM 86 MG/DL (60-99); SODIUM, SERUM 137 MMOL/L (135-148)
[2016-09-13 05:04] LABS: BASOPHILS 0.4 %; BASOPHILS ABSOLUTE 0.05 10/3/uL (0.0-0.16); EOSINOPHILS 1.7 %; EOSINOPHILS ABSOLUTE 0.22 10/3/uL (0.0-0.53); IMMATURE GRANULOCYTES 0.7 %; IMMATURE GRANULOCYTES ABSOLUTE 0.09 10/3/uL (0.0-0.11); LYMPHOCYTES 12.2 %; LYMPHOCYTES ABSOLUTE 1.56 10/3/uL (0.67-4.30); MEAN CORPUS HGB CONC 32.6 g/dL (32.0-36.0); MEAN CORPUSCULAR HEMOGLOB 28.3 pg (26.0-34.0); MEAN PLATELET VOLUME 8.5 fL (9.2-13.0); MONOCYTES 10.6 %; MONOCYTES ABSOLUTE 1.36 10/3/uL (0.21-1.20); NEUTROPHILS 74.4 %; NEUTROPHILS ABSOLUTE 9.49 10/3/uL (2.02-8.40); NUCLEATED RED BLOOD CELLS 0.2 /100WBC (0-0); PLATELET COUNT 487 10/3/uL (150-400); RBC DISTRIBUTION WIDTH 15.6 % (12.0-16.0); WHITE BLOOD CELLS 12.8 10/3/uL (4.5-10.5)
[2016-09-13 05:05] LABS: HEMATOCRIT 29.1 % (36.0-48.0); HEMOGLOBIN 9.5 g/dL (12.0-16.0); MANUAL DIFF NO %; MEAN CORPUSCULAR VOLUME 86.6 fL (80-100); RED CELL COUNT 3.36 10/6/uL (4.0-5.6)
[2016-09-13 05:13] LABS: INTERNATIONAL NORMAL RATI 1.2 UNITS (-); PROTIME (NOT ORD) 15.3 SEC (12.0-14.5)
[2016-09-13 05:14] LABS: PARTIAL THROMBO TIME 75.2 SEC (22.5-37.2)
[2016-09-13 05:18] LABS: BUN (BLOOD UREA NITROGEN) 15 MG/DL (6-23); CALCIUM, SERUM 8.4 MG/DL (8.5-10.4); CHLORIDE, SERUM 104 MMOL/L (96-112); CO2 (CARBON DIOXIDE) 22 MMOL/L (24-34); CREATININE 1.06 MG/DL (0.55-1.02); GFR AFRICAN AMERICAN 59 ML/MIN (>=60); GFR NON AFRICAN AMERICAN 51 ML/MIN (>=60); GLUCOSE, SERUM 88 MG/DL (60-99); SODIUM, SERUM 138 MMOL/L (135-148)
[2016-09-14 05:31] LABS: BASOPHILS 0.6 %; BASOPHILS ABSOLUTE 0.07 10/3/uL (0.0-0.16); EOSINOPHILS 2.4 %; EOSINOPHILS ABSOLUTE 0.28 10/3/uL (0.0-0.53); HEMATOCRIT 29.8 % (36.0-48.0); HEMOGLOBIN 9.5 g/dL (12.0-16.0); IMMATURE GRANULOCYTES 0.8 %; LYMPHOCYTES 16.9 %; LYMPHOCYTES ABSOLUTE 2.01 10/3/uL (0.67-4.30); MEAN CORPUS HGB CONC 31.9 g/dL (32.0-36.0); MEAN CORPUSCULAR HEMOGLOB 28.2 pg (26.0-34.0); MEAN CORPUSCULAR VOLUME 88.4 fL (80-100); MEAN PLATELET VOLUME 8.6 fL (9.2-13.0); MONOCYTES 9.2 %; MONOCYTES ABSOLUTE 1.09 10/3/uL (0.21-1.20); NEUTROPHILS 70.1 %; NEUTROPHILS ABSOLUTE 8.33 10/3/uL (2.02-8.40); PLATELET COUNT 498 10/3/uL (150-400); RBC DISTRIBUTION WIDTH 15.7 % (12.0-16.0); RED CELL COUNT 3.37 10/6/uL (4.0-5.6); WHITE BLOOD CELLS 11.9 10/3/uL (4.5-10.5)
[2016-09-14 05:35] LABS: INTERNATIONAL NORMAL RATI 1.2 UNITS (-)
[2016-09-14 05:36] LABS: MANUAL DIFF NO %; PARTIAL THROMBO TIME 80.6 SEC (22.5-37.2)
[2016-09-15 09:26] LABS: BASOPHILS 0.1 %; BASOPHILS ABSOLUTE 0.02 10/3/uL (0.0-0.16); EOSINOPHILS 0 %; HEMATOCRIT 28.6 % (36.0-48.0); HEMOGLOBIN 9.3 g/dL (12.0-16.0); IMMATURE GRANULOCYTES ABSOLUTE 0.14 10/3/uL (0.0-0.11); LYMPHOCYTES 13.5 %; LYMPHOCYTES ABSOLUTE 1.86 10/3/uL (0.67-4.30); MEAN CORPUS HGB CONC 32.5 g/dL (32.0-36.0); MEAN CORPUSCULAR HEMOGLOB 28.4 pg (26.0-34.0); MEAN CORPUSCULAR VOLUME 87.2 fL (80-100); MEAN PLATELET VOLUME 8.4 fL (9.2-13.0); MONOCYTES 9.7 %; MONOCYTES ABSOLUTE 1.34 10/3/uL (0.21-1.20); NEUTROPHILS 75.7 %; NEUTROPHILS ABSOLUTE 10.46 10/3/uL (2.02-8.40); PLATELET COUNT 557 10/3/uL (150-400); RBC DISTRIBUTION WIDTH 15.5 % (12.0-16.0); RED CELL COUNT 3.28 10/6/uL (4.0-5.6); WHITE BLOOD CELLS 13.8 10/3/uL (4.5-10.5)
[2016-09-15 09:27] LABS: MANUAL DIFF NO %
[2016-09-16 08:05] LABS: BASOPHILS 0.1 %; BASOPHILS ABSOLUTE 0.01 10/3/uL (0.0-0.16); EOSINOPHILS 0.1 %; EOSINOPHILS ABSOLUTE 0.01 10/3/uL (0.0-0.53); HEMOGLOBIN 8.5 g/dL (12.0-16.0); IMMATURE GRANULOCYTES ABSOLUTE 0.14 10/3/uL (0.0-0.11); LYMPHOCYTES 11.9 %; MEAN CORPUS HGB CONC 33.1 g/dL (32.0-36.0); MEAN CORPUSCULAR HEMOGLOB 28.3 pg (26.0-34.0); MEAN CORPUSCULAR VOLUME 85.7 fL (80-100); MEAN PLATELET VOLUME 8.3 fL (9.2-13.0); MONOCYTES 9.2 %; MONOCYTES ABSOLUTE 1.24 10/3/uL (0.21-1.20); NEUTROPHILS 77.7 %; NEUTROPHILS ABSOLUTE 10.42 10/3/uL (2.02-8.40); PLATELET COUNT 486 10/3/uL (150-400); RBC DISTRIBUTION WIDTH 15.4 % (12.0-16.0); WHITE BLOOD CELLS 13.4 10/3/uL (4.5-10.5)
[2016-09-16 08:07] LABS: HEMATOCRIT 25.7 % (36.0-48.0); MANUAL DIFF NO %
[2016-09-16 08:12] LABS: PARTIAL THROMBO TIME 56.7 SEC (22.5-37.2)
[2016-09-16 14:04] LABS: PARTIAL THROMBO TIME 41.3 SEC (22.5-37.2)
[2016-09-16 14:33] LABS: PROTIME (NOT ORD) < 10.0 SEC (12.0-14.5)
[2016-09-16 14:34] LABS: INTERNATIONAL NORMAL RATI < 0.7 UNITS (-)
[2016-09-16 16:10] LABS: PARTIAL THROMBO TIME 47.4 SEC (22.5-37.2)
[2016-09-16 17:12] LABS: INTERNATIONAL NORMAL RATI < 0.7 UNITS (-); PROTIME (NOT ORD) < 10.0 SEC (12.0-14.5)
[2016-09-17 06:55] LABS: BASOPHILS 0.1 %; BASOPHILS ABSOLUTE 0.01 10/3/uL (0.0-0.16); EOSINOPHILS 0.1 %; EOSINOPHILS ABSOLUTE 0.01 10/3/uL (0.0-0.53); HEMATOCRIT 23.5 % (36.0-48.0); HEMOGLOBIN 7.8 g/dL (12.0-16.0); IMMATURE GRANULOCYTES 1.7 %; IMMATURE GRANULOCYTES ABSOLUTE 0.24 10/3/uL (0.0-0.11); LYMPHOCYTES 11.2 %; LYMPHOCYTES ABSOLUTE 1.54 10/3/uL (0.67-4.30); MANUAL DIFF NO %; MEAN CORPUS HGB CONC 33.2 g/dL (32.0-36.0); MEAN CORPUSCULAR HEMOGLOB 28.7 pg (26.0-34.0); MEAN CORPUSCULAR VOLUME 86.4 fL (80-100); MEAN PLATELET VOLUME 8.6 fL (9.2-13.0); MONOCYTES 7.1 %; MONOCYTES ABSOLUTE 0.98 10/3/uL (0.21-1.20); NEUTROPHILS 79.8 %; NEUTROPHILS ABSOLUTE 11.01 10/3/uL (2.02-8.40); PLATELET COUNT 465 10/3/uL (150-400); RBC DISTRIBUTION WIDTH 15.2 % (12.0-16.0); RED CELL COUNT 2.72 10/6/uL (4.0-5.6); WHITE BLOOD CELLS 13.8 10/3/uL (4.5-10.5)
[2016-09-17 07:00] LABS: PARTIAL THROMBO TIME 63.9 SEC (22.5-37.2); PROTIME (NOT ORD) 13.1 SEC (12.0-14.5)
[2016-09-17 07:08] LABS: BUN (BLOOD UREA NITROGEN) 19 MG/DL (6-23); CALCIUM, SERUM 8.1 MG/DL (8.5-10.4); CHLORIDE, SERUM 100 MMOL/L (96-112); CO2 (CARBON DIOXIDE) 22 MMOL/L (24-34); GFR AFRICAN AMERICAN 71 ML/MIN (>=60); GFR NON AFRICAN AMERICAN 62 ML/MIN (>=60); GLUCOSE, SERUM 91 MG/DL (60-99); POTASSIUM, SERUM 3.8 MMOL/L (3.5-5.3); SODIUM, SERUM 133 MMOL/L (135-148)
[2016-09-17 09:40] LABS: RETICULOCYTE COUNT 5.1 % (0.5-2.5); RETICULOCYTE COUNT ABSOLUTE 138.1 10/3/uL (20.2-119.8)
[2016-09-18 06:11] LABS: HEMATOCRIT 24.1 % (36.0-48.0); MEAN CORPUS HGB CONC 33.2 g/dL (32.0-36.0); MEAN CORPUSCULAR HEMOGLOB 28.2 pg (26.0-34.0); MEAN CORPUSCULAR VOLUME 84.9 fL (80-100); MEAN PLATELET VOLUME 8.9 fL (9.2-13.0); PLATELET COUNT 429 10/3/uL (150-400); RBC DISTRIBUTION WIDTH 15.1 % (12.0-16.0); RED CELL COUNT 2.84 10/6/uL (4.0-5.6)
[2016-09-18 06:16] LABS: WHITE BLOOD CELLS 27.9 10/3/uL (4.5-10.5)
[2016-09-18 06:17] LABS: MANUAL DIFF YES %; PARTIAL THROMBO TIME 58.6 SEC (22.5-37.2)
[2016-09-18 06:23] LABS: BUN (BLOOD UREA NITROGEN) 16 MG/DL (6-23); CALCIUM, SERUM 8.2 MG/DL (8.5-10.4); CHLORIDE, SERUM 91 MMOL/L (96-112); CO2 (CARBON DIOXIDE) 21 MMOL/L (24-34); CREATININE 0.77 MG/DL (0.55-1.02); GFR AFRICAN AMERICAN 86 ML/MIN (>=60); GFR NON AFRICAN AMERICAN 74 ML/MIN (>=60); GLUCOSE, SERUM 94 MG/DL (60-99); POTASSIUM, SERUM 3.6 MMOL/L (3.5-5.3)
[2016-09-18 06:24] LABS: SODIUM, SERUM 125 MMOL/L (135-148)
[2016-09-18 06:45] LABS: BAND NEUTROPHILS 19 %; LYMPHOCYTES 3 %; LYMPHOCYTES ABSOLUTE (CALC) 0.84 10/3/uL (0.67-4.30); MONOCYTES 3 %; MONOCYTES ABSOLUTE (CALC) 0.84 10/3/uL (0.21-1.20); NEUTROPHILS ABSOLUTE (CALC) 26.23 10/3/uL (2.02-8.40); SEGMENTED NEUTROPHIL (0) 75 %; TOTAL NUCLEATED CELLS 100
[2016-09-18 06:46] LABS: PLATELET ESTIMATE SLT INC (ADEQUATE); POLYCHROMASIA 1+ (2-5/OIF) (0-1/OIF); TOXIC GRANULATION 1+; VACUOLATED NEUTROPHILES OCC
[2016-09-19 09:29] LABS: BUN (BLOOD UREA NITROGEN) 15 MG/DL (6-23); CALCIUM, SERUM 8.3 MG/DL (8.5-10.4); CHLORIDE, SERUM 91 MMOL/L (96-112); CO2 (CARBON DIOXIDE) 20 MMOL/L (24-34); CREATININE 1.08 MG/DL (0.55-1.02); GFR AFRICAN AMERICAN 57 ML/MIN (>=60); GFR NON AFRICAN AMERICAN 49 ML/MIN (>=60); GLUCOSE, SERUM 103 MG/DL (60-99); POTASSIUM, SERUM 3.4 MMOL/L (3.5-5.3); SODIUM, SERUM 127 MMOL/L (135-148)
[2016-09-19 10:09] LABS: HEMOGLOBIN 8.3 g/dL (12.0-16.0); MEAN CORPUS HGB CONC 33.2 g/dL (32.0-36.0); MEAN CORPUSCULAR VOLUME 84.5 fL (80-100); MEAN PLATELET VOLUME 9.2 fL (9.2-13.0); PLATELET COUNT 385 10/3/uL (150-400); RBC DISTRIBUTION WIDTH 15.7 % (12.0-16.0); RED CELL COUNT 2.96 10/6/uL (4.0-5.6)
[2016-09-19 10:13] LABS: MANUAL DIFF YES %; WHITE BLOOD CELLS 29.7 10/3/uL (4.5-10.5)
[2016-09-19 10:27] LABS: BAND NEUTROPHILS 4 %; LYMPHOCYTES 7 %; LYMPHOCYTES ABSOLUTE (CALC) 2.08 10/3/uL (0.67-4.30); MONOCYTES 2 %; MONOCYTES ABSOLUTE (CALC) 0.59 10/3/uL (0.21-1.20); NEUTROPHILS ABSOLUTE (CALC) 27.03 10/3/uL (2.02-8.40); PLATELET ESTIMATE ADQ (ADEQUATE); SEGMENTED NEUTROPHIL (0) 87 %; TOTAL NUCLEATED CELLS 100
[2016-09-19 10:28] LABS: RBC MORPHOLOGY NORM (NORMAL); TOXIC GRANULATION 1+; VACUOLATED NEUTROPHILES OCC
[2016-09-20 06:38] LABS: CALCIUM, SERUM 8.3 MG/DL (8.5-10.4); CO2 (CARBON DIOXIDE) 23 MMOL/L (24-34); CREATININE 1.22 MG/DL (0.55-1.02); GFR AFRICAN AMERICAN 49 ML/MIN (>=60); GFR NON AFRICAN AMERICAN 43 ML/MIN (>=60); GLUCOSE, SERUM 112 MG/DL (60-99)
[2016-09-20 06:39] LABS: BUN (BLOOD UREA NITROGEN) 22 MG/DL (6-23); CHLORIDE, SERUM 103 MMOL/L (96-112); SODIUM, SERUM 136 MMOL/L (135-148)
[2016-09-20 13:02] LABS: HEMATOCRIT 22.6 % (36.0-48.0); HEMOGLOBIN 7.3 g/dL (12.0-16.0); MEAN CORPUS HGB CONC 32.3 g/dL (32.0-36.0); MEAN CORPUSCULAR HEMOGLOB 28.1 pg (26.0-34.0); MEAN CORPUSCULAR VOLUME 86.9 fL (80-100); PLATELET COUNT 381 10/3/uL (150-400)
[2016-09-20 13:05] LABS: MANUAL DIFF YES %; WHITE BLOOD CELLS 30.6 10/3/uL (4.5-10.5)
[2016-09-20 13:21] LABS: BAND NEUTROPHILS 3 %; IMMATURE GRANS ABSOLUTE (CALC) 0.31 10/3/uL (0.0-0.11); LYMPHOCYTES 2 %; LYMPHOCYTES ABSOLUTE (CALC) 0.61 10/3/uL (0.67-4.30); METAMYELOCYTES 1 %; MONOCYTES 10 %; MONOCYTES ABSOLUTE (CALC) 3.06 10/3/uL (0.21-1.20); NEUTROPHILS ABSOLUTE (CALC) 26.62 10/3/uL (2.02-8.40); SEGMENTED NEUTROPHIL (0) 84 %; TOTAL NUCLEATED CELLS 100
[2016-09-20 13:22] LABS: BURR CELLS 1+ (3-10/OIF) (0-2/OIF); PLATELET ESTIMATE ADQ (ADEQUATE); POIKILOCYTOSIS 1+ (5-10/OIF) (0-5/OIF); POLYCHROMASIA 1+ (2-5/OIF) (0-1/OIF); TEARDROP SHAPED RBCS OCC (0-2/OIF); TOXIC GRANULATION 1+; VACUOLATED NEUTROPHILES 1+
[2016-09-21 04:30] LABS: HEMATOCRIT 22.2 % (36.0-48.0); HEMOGLOBIN 7.2 g/dL (12.0-16.0); MEAN CORPUS HGB CONC 32.4 g/dL (32.0-36.0); MEAN CORPUSCULAR HEMOGLOB 28.2 pg (26.0-34.0); MEAN CORPUSCULAR VOLUME 87.1 fL (80-100); MEAN PLATELET VOLUME 9.5 fL (9.2-13.0); PLATELET COUNT 364 10/3/uL (150-400); RBC DISTRIBUTION WIDTH 15.7 % (12.0-16.0); RED CELL COUNT 2.55 10/6/uL (4.0-5.6)
[2016-09-21 04:31] LABS: MANUAL DIFF YES %; WHITE BLOOD CELLS 25.5 10/3/uL (4.5-10.5)
[2016-09-21 04:40] LABS: CALCIUM, SERUM 8.3 MG/DL (8.5-10.4); CHLORIDE, SERUM 108 MMOL/L (96-112); CO2 (CARBON DIOXIDE) 24 MMOL/L (24-34); CREATININE 1.09 MG/DL (0.55-1.02); GFR AFRICAN AMERICAN 57 ML/MIN (>=60); GFR NON AFRICAN AMERICAN 49 ML/MIN (>=60); GLUCOSE, SERUM 112 MG/DL (60-99); POTASSIUM, SERUM 4.4 MMOL/L (3.5-5.3)
[2016-09-21 04:42] LABS: BUN (BLOOD UREA NITROGEN) 26 MG/DL (6-23); SODIUM, SERUM 143 MMOL/L (135-148)
[2016-09-21 07:22] LABS: BAND NEUTROPHILS 4 %; IMMATURE GRANS ABSOLUTE (CALC) 0.77 10/3/uL (0.0-0.11); LYMPHOCYTES 11 %; LYMPHOCYTES ABSOLUTE (CALC) 2.81 10/3/uL (0.67-4.30); METAMYELOCYTES 3 %; MONOCYTES 3 %; MONOCYTES ABSOLUTE (CALC) 0.77 10/3/uL (0.21-1.20); NEUTROPHILS ABSOLUTE (CALC) 21.17 10/3/uL (2.02-8.40); SEGMENTED NEUTROPHIL (0) 79 %; TOTAL NUCLEATED CELLS 100
[2016-09-21 07:23] LABS: PLATELET ESTIMATE ADQ (ADEQUATE); SPHEROCYTES OCC (0-2/OIF)
[2016-09-22 06:37] LABS: CALCIUM, SERUM 8.9 MG/DL (8.5-10.4); CHLORIDE, SERUM 108 MMOL/L (96-112); CO2 (CARBON DIOXIDE) 23 MMOL/L (24-34); CREATININE 1.34 MG/DL (0.55-1.02); GFR AFRICAN AMERICAN 44 ML/MIN (>=60); GFR NON AFRICAN AMERICAN 38 ML/MIN (>=60); POTASSIUM, SERUM 4.3 MMOL/L (3.5-5.3); SODIUM, SERUM 142 MMOL/L (135-148)
[2016-09-22 06:38] LABS: BUN (BLOOD UREA NITROGEN) 33 MG/DL (6-23); GLUCOSE, SERUM 84 MG/DL (60-99)
[2016-09-22 08:40] LABS: MEAN CORPUS HGB CONC 31.3 g/dL (32.0-36.0); MEAN CORPUSCULAR HEMOGLOB 27.5 pg (26.0-34.0); MEAN CORPUSCULAR VOLUME 88.1 fL (80-100); MEAN PLATELET VOLUME 9.6 fL (9.2-13.0); NUCLEATED RED BLOOD CELLS 0.7 /100WBC (0-0); PLATELET COUNT 411 10/3/uL (150-400); RBC DISTRIBUTION WIDTH 16.2 % (12.0-16.0); RED CELL COUNT 2.36 10/6/uL (4.0-5.6)
[2016-09-22 08:41] LABS: HEMATOCRIT 20.8 % (36.0-48.0); HEMOGLOBIN 6.5 g/dL (12.0-16.0)
[2016-09-22 08:42] LABS: MANUAL DIFF YES %
[2016-09-22 09:15] LABS: BAND NEUTROPHILS 2 %; LYMPHOCYTES 13 %; METAMYELOCYTES 3 %; MONOCYTES 3 %; MYELOCYTES 1 %; SEGMENTED NEUTROPHIL (0) 78 %; TOTAL NUCLEATED CELLS 100
[2016-09-22 09:16] LABS: PLATELET ESTIMATE INC (ADEQUATE)
[2016-09-22 09:18] LABS: HYPOCHROMIA 1+ (3-10/OIF) (0-2/OIF)
[2016-09-22 09:58] LABS: INTERNATIONAL NORMAL RATI 1.2 UNITS (-); PROTIME (NOT ORD) 14.8 SEC (12.0-14.5)
[2016-09-22 09:59] LABS: PARTIAL THROMBO TIME 66.6 SEC (22.5-37.2)
[2016-09-23 01:23] LABS: HEMATOCRIT 26.8 % (36.0-48.0); HEMOGLOBIN 8.9 g/dL (12.0-16.0)
[2016-09-23 06:55] LABS: PARTIAL THROMBO TIME 52.7 SEC (22.5-37.2)
[2016-09-23 06:57] LABS: HEMATOCRIT 25.4 % (36.0-48.0); HEMOGLOBIN 8.4 g/dL (12.0-16.0); MEAN CORPUSCULAR HEMOGLOB 28.6 pg (26.0-34.0); MEAN CORPUSCULAR VOLUME 86.4 fL (80-100); MEAN PLATELET VOLUME 9.6 fL (9.2-13.0); NUCLEATED RED BLOOD CELLS 2.8 /100WBC (0-0); PLATELET COUNT 329 10/3/uL (150-400); RBC DISTRIBUTION WIDTH 15.8 % (12.0-16.0)
[2016-09-23 06:58] LABS: MANUAL DIFF YES %; MEAN CORPUS HGB CONC 33.1 g/dL (32.0-36.0); RED CELL COUNT 2.94 10/6/uL (4.0-5.6); WHITE BLOOD CELLS 31.1 10/3/uL (4.5-10.5)
[2016-09-23 07:02] LABS: BUN (BLOOD UREA NITROGEN) 39 MG/DL (6-23); CALCIUM, SERUM 8.3 MG/DL (8.5-10.4); CHLORIDE, SERUM 108 MMOL/L (96-112); CO2 (CARBON DIOXIDE) 21 MMOL/L (24-34); CREATININE 1.04 MG/DL (0.55-1.02); GFR AFRICAN AMERICAN 60 ML/MIN (>=60); GFR NON AFRICAN AMERICAN 52 ML/MIN (>=60); GLUCOSE, SERUM 74 MG/DL (60-99); POTASSIUM, SERUM 3.9 MMOL/L (3.5-5.3); SODIUM, SERUM 143 MMOL/L (135-148)
[2016-09-23 07:54] LABS: BAND NEUTROPHILS 2 %; IMMATURE GRANS ABSOLUTE (CALC) 1.24 10/3/uL (0.0-0.11); LYMPHOCYTES 12 %; LYMPHOCYTES ABSOLUTE (CALC) 3.73 10/3/uL (0.67-4.30); METAMYELOCYTES 2 %; MONOCYTES 6 %; MONOCYTES ABSOLUTE (CALC) 1.87 10/3/uL (0.21-1.20); MYELOCYTES 2 %; NEUTROPHILS ABSOLUTE (CALC) 24.26 10/3/uL (2.02-8.40); SEGMENTED NEUTROPHIL (0) 76 %; TOTAL NUCLEATED CELLS 100
[2016-09-23 07:55] LABS: PLATELET ESTIMATE ADQ (ADEQUATE)
[2016-09-23 07:56] LABS: POLYCHROMASIA 1+ (2-5/OIF) (0-1/OIF)
[2016-09-23 08:35] LABS: HEMATOCRIT 27.1 % (36.0-48.0); HEMOGLOBIN 8.9 g/dL (12.0-16.0)
[2016-09-23 15:49] LABS: HEMOGLOBIN 8.8 g/dL (12.0-16.0)
[2016-09-24 02:36] LABS: PARTIAL THROMBO TIME 56.3 SEC (22.5-37.2)
[2016-09-24 02:37] LABS: BUN (BLOOD UREA NITROGEN) 37 MG/DL (6-23); CALCIUM, SERUM 8.5 MG/DL (8.5-10.4); CHLORIDE, SERUM 107 MMOL/L (96-112); CO2 (CARBON DIOXIDE) 24 MMOL/L (24-34); GFR AFRICAN AMERICAN 56 ML/MIN (>=60); GFR NON AFRICAN AMERICAN 48 ML/MIN (>=60); GLUCOSE, SERUM 110 MG/DL (60-99); HEMOGLOBIN 7.2 g/dL (12.0-16.0); MEAN CORPUSCULAR HEMOGLOB 28.7 pg (26.0-34.0); MEAN CORPUSCULAR VOLUME 86.9 fL (80-100); MEAN PLATELET VOLUME 9.4 fL (9.2-13.0); NUCLEATED RED BLOOD CELLS 1.6 /100WBC (0-0); PLATELET COUNT 304 10/3/uL (150-400); RBC DISTRIBUTION WIDTH 15.8 % (12.0-16.0); RED CELL COUNT 2.51 10/6/uL (4.0-5.6); SODIUM, SERUM 141 MMOL/L (135-148); WHITE BLOOD CELLS 24.1 10/3/uL (4.5-10.5)
[2016-09-24 02:38] LABS: HEMATOCRIT 21.8 % (36.0-48.0); MANUAL DIFF YES %
[2016-09-24 02:49] LABS: BAND NEUTROPHILS 3 %; LYMPHOCYTES 10 %; LYMPHOCYTES ABSOLUTE (CALC) 2.41 10/3/uL (0.67-4.30); MONOCYTES 4 %; MONOCYTES ABSOLUTE (CALC) 0.96 10/3/uL (0.21-1.20); NEUTROPHILS ABSOLUTE (CALC) 20.73 10/3/uL (2.02-8.40); PLATELET ESTIMATE ADQ (ADEQUATE); RBC MORPHOLOGY NORM (NORMAL); SEGMENTED NEUTROPHIL (0) 83 %; TOTAL NUCLEATED CELLS 100
[2016-09-24 10:29] LABS: HEMOGLOBIN 7.3 g/dL (12.0-16.0)
[2016-09-24 17:56] LABS: HEMOGLOBIN 9.5 g/dL (12.0-16.0)
[2016-09-25 06:51] LABS: HEMATOCRIT 30.4 % (36.0-48.0); HEMOGLOBIN 10.1 g/dL (12.0-16.0); MEAN CORPUS HGB CONC 33.2 g/dL (32.0-36.0); MEAN CORPUSCULAR HEMOGLOB 29.8 pg (26.0-34.0); MEAN PLATELET VOLUME 9.6 fL (9.2-13.0); PLATELET COUNT 274 10/3/uL (150-400); RBC DISTRIBUTION WIDTH 15.2 % (12.0-16.0); WHITE BLOOD CELLS 19.2 10/3/uL (4.5-10.5)
[2016-09-25 06:57] LABS: MANUAL DIFF YES %; MEAN CORPUSCULAR VOLUME 89.7 fL (80-100); RED CELL COUNT 3.39 10/6/uL (4.0-5.6)
[2016-09-25 06:59] LABS: CALCIUM, SERUM 8.9 MG/DL (8.5-10.4); CHLORIDE, SERUM 111 MMOL/L (96-112); CO2 (CARBON DIOXIDE) 21 MMOL/L (24-34); CREATININE 0.88 MG/DL (0.55-1.02); GFR AFRICAN AMERICAN 73 ML/MIN (>=60); GFR NON AFRICAN AMERICAN 63 ML/MIN (>=60); POTASSIUM, SERUM 3.6 MMOL/L (3.5-5.3); SODIUM, SERUM 143 MMOL/L (135-148)
[2016-09-25 07:00] LABS: BUN (BLOOD UREA NITROGEN) 29 MG/DL (6-23); GLUCOSE, SERUM 78 MG/DL (60-99)
[2016-09-25 07:19] LABS: PARTIAL THROMBO TIME 43.9 SEC (22.5-37.2)
[2016-09-25 08:03] LABS: BAND NEUTROPHILS 10 %; IMMATURE GRANS ABSOLUTE (CALC) 0.96 10/3/uL (0.0-0.11); LYMPHOCYTES 14 %; LYMPHOCYTES ABSOLUTE (CALC) 2.69 10/3/uL (0.67-4.30); METAMYELOCYTES 4 %; MONOCYTES 6 %; MONOCYTES ABSOLUTE (CALC) 1.15 10/3/uL (0.21-1.20); MYELOCYTES 1 %; PLATELET ESTIMATE ADQ (ADEQUATE); RBC MORPHOLOGY NORM (NORMAL); SEGMENTED NEUTROPHIL (0) 65 %; TOTAL NUCLEATED CELLS 100
[2016-09-25 17:10] LABS: HEMATOCRIT 30.2 % (36.0-48.0)
[2016-09-25 23:24] LABS: HEMATOCRIT 31.8 % (36.0-48.0); HEMOGLOBIN 10.5 g/dL (12.0-16.0)
[2016-09-26 05:31] LABS: CALCIUM, SERUM 8.4 MG/DL (8.5-10.4); CHLORIDE, SERUM 109 MMOL/L (96-112); CO2 (CARBON DIOXIDE) 25 MMOL/L (24-34); CREATININE 0.74 MG/DL (0.55-1.02); GFR AFRICAN AMERICAN 91 ML/MIN (>=60); GFR NON AFRICAN AMERICAN 78 ML/MIN (>=60); GLUCOSE, SERUM 90 MG/DL (60-99); POTASSIUM, SERUM 3.1 MMOL/L (3.5-5.3); SODIUM, SERUM 145 MMOL/L (135-148)
[2016-09-26 05:34] LABS: BUN (BLOOD UREA NITROGEN) 20 MG/DL (6-23)
[2016-09-26 05:38] LABS: BASOPHILS 0.2 %; BASOPHILS ABSOLUTE 0.02 10/3/uL (0.0-0.16); EOSINOPHILS 0.1 %; EOSINOPHILS ABSOLUTE 0.01 10/3/uL (0.0-0.53); HEMOGLOBIN 9.3 g/dL (12.0-16.0); IMMATURE GRANULOCYTES 3.1 %; LYMPHOCYTES 15.3 %; LYMPHOCYTES ABSOLUTE 1.99 10/3/uL (0.67-4.30); MEAN CORPUS HGB CONC 33.5 g/dL (32.0-36.0); MEAN CORPUSCULAR VOLUME 89.7 fL (80-100); MEAN PLATELET VOLUME 9.8 fL (9.2-13.0); MONOCYTES 6.1 %; NEUTROPHILS 75.2 %; NEUTROPHILS ABSOLUTE 9.82 10/3/uL (2.02-8.40); PLATELET COUNT 270 10/3/uL (150-400)
[2016-09-26 05:40] LABS: HEMATOCRIT 27.8 % (36.0-48.0); MANUAL DIFF NO %
[2016-09-26 05:51] LABS: INTERNATIONAL NORMAL RATI < 0.7 UNITS (-); PROTIME (NOT ORD) < 10.0 SEC (12.0-14.5)
[2016-09-26 06:48] LABS: PLATELET ESTIMATE ADQ (ADEQUATE); POLYCHROMASIA 1+ (2-5/OIF) (0-1/OIF)
[2016-09-26 20:41] LABS: HEMATOCRIT 30.5 % (36.0-48.0); HEMOGLOBIN 10.2 g/dL (12.0-16.0)
[2016-09-27 05:54] LABS: BASOPHILS 0.2 %; BASOPHILS ABSOLUTE 0.02 10/3/uL (0.0-0.16); EOSINOPHILS 0.5 %; EOSINOPHILS ABSOLUTE 0.05 10/3/uL (0.0-0.53); HEMOGLOBIN 8.8 g/dL (12.0-16.0); IMMATURE GRANULOCYTES 1.6 %; IMMATURE GRANULOCYTES ABSOLUTE 0.16 10/3/uL (0.0-0.11); LYMPHOCYTES 15.2 %; LYMPHOCYTES ABSOLUTE 1.54 10/3/uL (0.67-4.30); MEAN CORPUS HGB CONC 32.8 g/dL (32.0-36.0); MEAN CORPUSCULAR HEMOGLOB 30.4 pg (26.0-34.0); MEAN PLATELET VOLUME 9.2 fL (9.2-13.0); MONOCYTES 3.3 %; MONOCYTES ABSOLUTE 0.33 10/3/uL (0.21-1.20); NEUTROPHILS 79.2 %; NEUTROPHILS ABSOLUTE 8.03 10/3/uL (2.02-8.40); PLATELET COUNT 250 10/3/uL (150-400); RBC DISTRIBUTION WIDTH 16.7 % (12.0-16.0); RED CELL COUNT 2.89 10/6/uL (4.0-5.6); WHITE BLOOD CELLS 10.1 10/3/uL (4.5-10.5)
[2016-09-27 05:58] LABS: HEMATOCRIT 26.8 % (36.0-48.0); MANUAL DIFF NO %; MEAN CORPUSCULAR VOLUME 92.7 fL (80-100)
[2016-09-27 06:09] LABS: CHLORIDE, SERUM 110 MMOL/L (96-112); CO2 (CARBON DIOXIDE) 25 MMOL/L (24-34); CREATININE 0.73 MG/DL (0.55-1.02); GFR AFRICAN AMERICAN 92 ML/MIN (>=60); GFR NON AFRICAN AMERICAN 79 ML/MIN (>=60); GLUCOSE, SERUM 77 MG/DL (60-99); POTASSIUM, SERUM 3.5 MMOL/L (3.5-5.3); SODIUM, SERUM 148 MMOL/L (135-148)
[2016-09-27 06:10] LABS: BUN (BLOOD UREA NITROGEN) 13 MG/DL (6-23)
[2016-09-27 14:36] LABS: HEMATOCRIT 26.7 % (36.0-48.0)
[2016-09-27 20:12] LABS: HEMATOCRIT 26.4 % (36.0-48.0); HEMOGLOBIN 8.7 g/dL (12.0-16.0)
[2016-09-28 06:03] LABS: PARTIAL THROMBO TIME 45.9 SEC (22.5-37.2)
[2016-09-28 06:18] LABS: BUN (BLOOD UREA NITROGEN) 10 MG/DL (6-23); CHLORIDE, SERUM 111 MMOL/L (96-112); CO2 (CARBON DIOXIDE) 23 MMOL/L (24-34); CREATININE 0.72 MG/DL (0.55-1.02); GFR AFRICAN AMERICAN 94 ML/MIN (>=60); GFR NON AFRICAN AMERICAN 81 ML/MIN (>=60); POTASSIUM, SERUM 3.3 MMOL/L (3.5-5.3); SODIUM, SERUM 145 MMOL/L (135-148)
[2016-09-28 06:20] LABS: GLUCOSE, SERUM 106 MG/DL (60-99)
[2016-09-28 06:48] LABS: BASOPHILS 0.1 %; BASOPHILS ABSOLUTE 0.01 10/3/uL (0.0-0.16); EOSINOPHILS 0.2 %; EOSINOPHILS ABSOLUTE 0.02 10/3/uL (0.0-0.53); HEMATOCRIT 24.1 % (36.0-48.0); HEMOGLOBIN 7.7 g/dL (12.0-16.0); IMMATURE GRANULOCYTES 1.2 %; LYMPHOCYTES 16.6 %; MEAN CORPUSCULAR HEMOGLOB 29.4 pg (26.0-34.0); MEAN PLATELET VOLUME 9.3 fL (9.2-13.0); MONOCYTES 5.3 %; MONOCYTES ABSOLUTE 0.45 10/3/uL (0.21-1.20); NEUTROPHILS 76.6 %; NEUTROPHILS ABSOLUTE 6.47 10/3/uL (2.02-8.40); PLATELET COUNT 243 10/3/uL (150-400); RBC DISTRIBUTION WIDTH 17.4 % (12.0-16.0); RED CELL COUNT 2.62 10/6/uL (4.0-5.6); WHITE BLOOD CELLS 8.5 10/3/uL (4.5-10.5)
[2016-09-28 06:49] LABS: MANUAL DIFF NO %
[2016-09-28 12:12] LABS: HEMOGLOBIN 9.2 g/dL (12.0-16.0)
[2016-09-29 05:51] LABS: BASOPHILS 0 %; EOSINOPHILS 0.1 %; EOSINOPHILS ABSOLUTE 0.01 10/3/uL (0.0-0.53); HEMATOCRIT 26.2 % (36.0-48.0); HEMOGLOBIN 8.3 g/dL (12.0-16.0); IMMATURE GRANULOCYTES 0.8 %; IMMATURE GRANULOCYTES ABSOLUTE 0.07 10/3/uL (0.0-0.11); LYMPHOCYTES 21.4 %; LYMPHOCYTES ABSOLUTE 1.83 10/3/uL (0.67-4.30); MEAN CORPUS HGB CONC 31.7 g/dL (32.0-36.0); MEAN CORPUSCULAR HEMOGLOB 29.5 pg (26.0-34.0); MEAN CORPUSCULAR VOLUME 93.2 fL (80-100); MEAN PLATELET VOLUME 9.5 fL (9.2-13.0); MONOCYTES 5.7 %; MONOCYTES ABSOLUTE 0.49 10/3/uL (0.21-1.20); NEUTROPHILS ABSOLUTE 6.17 10/3/uL (2.02-8.40); PLATELET COUNT 249 10/3/uL (150-400); RBC DISTRIBUTION WIDTH 17.6 % (12.0-16.0); RED CELL COUNT 2.81 10/6/uL (4.0-5.6); WHITE BLOOD CELLS 8.6 10/3/uL (4.5-10.5)
[2016-09-29 06:04] LABS: PARTIAL THROMBO TIME 43.5 SEC (22.5-37.2)
[2016-09-29 06:07] LABS: MANUAL DIFF NO %
[2016-09-29 06:12] LABS: BUN (BLOOD UREA NITROGEN) 11 MG/DL (6-23); CALCIUM, SERUM 8.6 MG/DL (8.5-10.4); CHLORIDE, SERUM 111 MMOL/L (96-112); CO2 (CARBON DIOXIDE) 24 MMOL/L (24-34); CREATININE 0.66 MG/DL (0.55-1.02); GFR AFRICAN AMERICAN 99 ML/MIN (>=60); GFR NON AFRICAN AMERICAN 85 ML/MIN (>=60); GLUCOSE, SERUM 85 MG/DL (60-99); POTASSIUM, SERUM 3.3 MMOL/L (3.5-5.3); SODIUM, SERUM 146 MMOL/L (135-148)
[2016-09-29 10:01] LABS: RETICULOCYTE COUNT ABSOLUTE 168.9 10/3/uL (20.2-119.8)
[2016-09-30 07:12] LABS: HEMATOCRIT 26.5 % (36.0-48.0); HEMOGLOBIN 8.6 g/dL (12.0-16.0); MEAN CORPUS HGB CONC 32.5 g/dL (32.0-36.0); MEAN CORPUSCULAR VOLUME 92.3 fL (80-100); MEAN PLATELET VOLUME 9.5 fL (9.2-13.0); PLATELET COUNT 278 10/3/uL (150-400); RBC DISTRIBUTION WIDTH 18.5 % (12.0-16.0); RED CELL COUNT 2.87 10/6/uL (4.0-5.6)
[2016-09-30 07:15] LABS: MANUAL DIFF YES %
[2016-09-30 07:17] LABS: PARTIAL THROMBO TIME 41.1 SEC (22.5-37.2)
[2016-09-30 07:23] LABS: BUN (BLOOD UREA NITROGEN) 10 MG/DL (6-23); CALCIUM, SERUM 8.6 MG/DL (8.5-10.4); CHLORIDE, SERUM 111 MMOL/L (96-112); CO2 (CARBON DIOXIDE) 25 MMOL/L (24-34); CREATININE 0.68 MG/DL (0.55-1.02); GFR AFRICAN AMERICAN 98 ML/MIN (>=60); GFR NON AFRICAN AMERICAN 84 ML/MIN (>=60); GLUCOSE, SERUM 79 MG/DL (60-99); POTASSIUM, SERUM 3.2 MMOL/L (3.5-5.3); SODIUM, SERUM 148 MMOL/L (135-148)
[2016-09-30 07:45] LABS: ANISOCYTOSIS 1+ (5-10/OIF) (0-5/OIF); BAND NEUTROPHILS 3 %; IMMATURE GRANS ABSOLUTE (CALC) 0.07 10/3/uL (0.0-0.11); LYMPHOCYTES 8 %; LYMPHOCYTES ABSOLUTE (CALC) 0.56 10/3/uL (0.67-4.30); MONOCYTES 1 %; NEUTROPHILS ABSOLUTE (CALC) 6.37 10/3/uL (2.02-8.40); PLATELET ESTIMATE ADQ (ADEQUATE); PROTIME (NOT ORD) < 10.0 SEC (12.0-14.5); SEGMENTED NEUTROPHIL (0) 88 %; TOTAL NUCLEATED CELLS 100
[2016-09-30 07:46] LABS: INTERNATIONAL NORMAL RATI < 0.7 UNITS (-)
[2016-10-01 07:07] LABS: BUN (BLOOD UREA NITROGEN) 13 MG/DL (6-23); CALCIUM, SERUM 8.5 MG/DL (8.5-10.4); CHLORIDE, SERUM 111 MMOL/L (96-112); CO2 (CARBON DIOXIDE) 25 MMOL/L (24-34); CREATININE 0.85 MG/DL (0.55-1.02); GFR AFRICAN AMERICAN 77 ML/MIN (>=60); GFR NON AFRICAN AMERICAN 66 ML/MIN (>=60); GLUCOSE, SERUM 105 MG/DL (60-99); POTASSIUM, SERUM 3.5 MMOL/L (3.5-5.3); SODIUM, SERUM 146 MMOL/L (135-148)
[2016-10-01 07:08] LABS: BASOPHILS 0 %; EOSINOPHILS 0 %; HEMATOCRIT 26.1 % (36.0-48.0); HEMOGLOBIN 8.4 g/dL (12.0-16.0); IMMATURE GRANULOCYTES 0.9 %; IMMATURE GRANULOCYTES ABSOLUTE 0.06 10/3/uL (0.0-0.11); LYMPHOCYTES 9.6 %; LYMPHOCYTES ABSOLUTE 0.66 10/3/uL (0.67-4.30); MEAN CORPUS HGB CONC 32.2 g/dL (32.0-36.0); MEAN CORPUSCULAR HEMOGLOB 30.4 pg (26.0-34.0); MEAN CORPUSCULAR VOLUME 94.6 fL (80-100); MEAN PLATELET VOLUME 9.6 fL (9.2-13.0); MONOCYTES ABSOLUTE 0.41 10/3/uL (0.21-1.20); NEUTROPHILS 83.5 %; NEUTROPHILS ABSOLUTE 5.72 10/3/uL (2.02-8.40); PLATELET COUNT 260 10/3/uL (150-400); RBC DISTRIBUTION WIDTH 18.9 % (12.0-16.0); RED CELL COUNT 2.76 10/6/uL (4.0-5.6); WHITE BLOOD CELLS 6.9 10/3/uL (4.5-10.5)
[2016-10-01 07:09] LABS: MANUAL DIFF NO %
[2016-10-01 07:47] LABS: PARTIAL THROMBO TIME 49.9 SEC (22.5-37.2)
[2016-10-02 07:18] LABS: BASOPHILS 0.2 %; BASOPHILS ABSOLUTE 0.01 10/3/uL (0.0-0.16); EOSINOPHILS 0.2 %; EOSINOPHILS ABSOLUTE 0.01 10/3/uL (0.0-0.53); HEMOGLOBIN 8.4 g/dL (12.0-16.0); IMMATURE GRANULOCYTES 0.5 %; IMMATURE GRANULOCYTES ABSOLUTE 0.03 10/3/uL (0.0-0.11); LYMPHOCYTES 16.1 %; LYMPHOCYTES ABSOLUTE 0.96 10/3/uL (0.67-4.30); MANUAL DIFF NO %; MEAN CORPUS HGB CONC 32.3 g/dL (32.0-36.0); MEAN CORPUSCULAR HEMOGLOB 30.9 pg (26.0-34.0); MEAN CORPUSCULAR VOLUME 95.6 fL (80-100); MEAN PLATELET VOLUME 9.4 fL (9.2-13.0); MONOCYTES 4.9 %; MONOCYTES ABSOLUTE 0.29 10/3/uL (0.21-1.20); NEUTROPHILS 78.1 %; NEUTROPHILS ABSOLUTE 4.65 10/3/uL (2.02-8.40); PLATELET COUNT 269 10/3/uL (150-400); RBC DISTRIBUTION WIDTH 19.6 % (12.0-16.0); RED CELL COUNT 2.72 10/6/uL (4.0-5.6)
[2016-10-02 07:28] LABS: BUN (BLOOD UREA NITROGEN) 12 MG/DL (6-23); CALCIUM, SERUM 8.5 MG/DL (8.5-10.4); CHLORIDE, SERUM 110 MMOL/L (96-112); CO2 (CARBON DIOXIDE) 26 MMOL/L (24-34); CREATININE 0.79 MG/DL (0.55-1.02); GFR AFRICAN AMERICAN 84 ML/MIN (>=60); GFR NON AFRICAN AMERICAN 72 ML/MIN (>=60); POTASSIUM, SERUM 3.3 MMOL/L (3.5-5.3); SODIUM, SERUM 147 MMOL/L (135-148)
[2016-10-02 07:29] LABS: GLUCOSE, SERUM 75 MG/DL (60-99)
[2016-10-02 08:54] LABS: BASOPHILS 0.1 %; BASOPHILS ABSOLUTE 0.01 10/3/uL (0.0-0.16); EOSINOPHILS 0.1 %; EOSINOPHILS ABSOLUTE 0.01 10/3/uL (0.0-0.53); HEMATOCRIT 26.9 % (36.0-48.0); HEMOGLOBIN 8.7 g/dL (12.0-16.0); IMMATURE GRANULOCYTES 0.8 %; IMMATURE GRANULOCYTES ABSOLUTE 0.06 10/3/uL (0.0-0.11); LYMPHOCYTES 18.1 %; LYMPHOCYTES ABSOLUTE 1.34 10/3/uL (0.67-4.30); MANUAL DIFF NO %; MEAN CORPUS HGB CONC 32.3 g/dL (32.0-36.0); MEAN CORPUSCULAR HEMOGLOB 31.1 pg (26.0-34.0); MEAN CORPUSCULAR VOLUME 96.1 fL (80-100); MEAN PLATELET VOLUME 9.2 fL (9.2-13.0); MONOCYTES 3.4 %; MONOCYTES ABSOLUTE 0.25 10/3/uL (0.21-1.20); NEUTROPHILS 77.5 %; NEUTROPHILS ABSOLUTE 5.73 10/3/uL (2.02-8.40); PLATELET COUNT 277 10/3/uL (150-400); RBC DISTRIBUTION WIDTH 19.7 % (12.0-16.0); WHITE BLOOD CELLS 7.4 10/3/uL (4.5-10.5)
[2016-10-02 09:01] LABS: BUN (BLOOD UREA NITROGEN) 11 MG/DL (6-23); CALCIUM, SERUM 8.5 MG/DL (8.5-10.4); CHLORIDE, SERUM 108 MMOL/L (96-112); CO2 (CARBON DIOXIDE) 25 MMOL/L (24-34); GFR AFRICAN AMERICAN 63 ML/MIN (>=60); GFR NON AFRICAN AMERICAN 54 ML/MIN (>=60); SODIUM, SERUM 145 MMOL/L (135-148)
[2016-10-02 09:05] LABS: GLUCOSE, SERUM 107 MG/DL (60-99)
[2016-10-03 04:21] LABS: CALCIUM, SERUM 8.1 MG/DL (8.5-10.4); CHLORIDE, SERUM 107 MMOL/L (96-112); CO2 (CARBON DIOXIDE) 28 MMOL/L (24-34); CREATININE 0.99 MG/DL (0.55-1.02); GFR AFRICAN AMERICAN 64 ML/MIN (>=60); GFR NON AFRICAN AMERICAN 55 ML/MIN (>=60); POTASSIUM, SERUM 3.5 MMOL/L (3.5-5.3); SODIUM, SERUM 145 MMOL/L (135-148)
[2016-10-03 04:25] LABS: BUN (BLOOD UREA NITROGEN) 15 MG/DL (6-23); GLUCOSE, SERUM 73 MG/DL (60-99)
[2016-10-03 05:59] LABS: BASOPHILS 0.2 %; BASOPHILS ABSOLUTE 0.01 10/3/uL (0.0-0.16); EOSINOPHILS 0.2 %; EOSINOPHILS ABSOLUTE 0.01 10/3/uL (0.0-0.53); HEMATOCRIT 26.4 % (36.0-48.0); HEMOGLOBIN 8.2 g/dL (12.0-16.0); IMMATURE GRANULOCYTES 0.9 %; IMMATURE GRANULOCYTES ABSOLUTE 0.05 10/3/uL (0.0-0.11); LYMPHOCYTES 15.4 %; MEAN CORPUS HGB CONC 31.1 g/dL (32.0-36.0); MEAN CORPUSCULAR VOLUME 96.7 fL (80-100); MEAN PLATELET VOLUME 9.6 fL (9.2-13.0); MONOCYTES 4.5 %; MONOCYTES ABSOLUTE 0.26 10/3/uL (0.21-1.20); NEUTROPHILS 78.8 %; NUCLEATED RED BLOOD CELLS 1.3 /100WBC (0-0); PLATELET COUNT 277 10/3/uL (150-400); RBC DISTRIBUTION WIDTH 20.6 % (12.0-16.0); RED CELL COUNT 2.73 10/6/uL (4.0-5.6); WHITE BLOOD CELLS 5.8 10/3/uL (4.5-10.5)
[2016-10-03 06:02] LABS: MANUAL DIFF NO %
[2016-10-04 06:13] LABS: BUN (BLOOD UREA NITROGEN) 17 MG/DL (6-23); CALCIUM, SERUM 8.6 MG/DL (8.5-10.4); CHLORIDE, SERUM 108 MMOL/L (96-112); CO2 (CARBON DIOXIDE) 26 MMOL/L (24-34); CREATININE 1.03 MG/DL (0.55-1.02); GFR AFRICAN AMERICAN 61 ML/MIN (>=60); GFR NON AFRICAN AMERICAN 52 ML/MIN (>=60); GLUCOSE, SERUM 86 MG/DL (60-99); PHOSPHORUS, SERUM 2.7 MG/DL (2.5-4.5); POTASSIUM, SERUM 3.2 MMOL/L (3.5-5.3); SODIUM, SERUM 145 MMOL/L (135-148)
[2016-10-04 07:30] LABS: INTERNATIONAL NORMAL RATI 1.1 UNITS (-); PROTIME (NOT ORD) 14.5 SEC (12.0-14.5)
[2016-10-04 08:33] LABS: BASOPHILS 0 %; EOSINOPHILS 0.2 %; EOSINOPHILS ABSOLUTE 0.01 10/3/uL (0.0-0.53); IMMATURE GRANULOCYTES 1.2 %; IMMATURE GRANULOCYTES ABSOLUTE 0.06 10/3/uL (0.0-0.11); LYMPHOCYTES 12.6 %; LYMPHOCYTES ABSOLUTE 0.63 10/3/uL (0.67-4.30); MEAN CORPUS HGB CONC 30.8 g/dL (32.0-36.0); MEAN CORPUSCULAR HEMOGLOB 29.4 pg (26.0-34.0); MEAN CORPUSCULAR VOLUME 95.6 fL (80-100); MEAN PLATELET VOLUME 9.6 fL (9.2-13.0); MONOCYTES 4.4 %; MONOCYTES ABSOLUTE 0.22 10/3/uL (0.21-1.20); NEUTROPHILS 81.6 %; NEUTROPHILS ABSOLUTE 4.09 10/3/uL (2.02-8.40); NUCLEATED RED BLOOD CELLS 1.3 /100WBC (0-0); PLATELET COUNT 281 10/3/uL (150-400); RBC DISTRIBUTION WIDTH 21.6 % (12.0-16.0); RED CELL COUNT 2.72 10/6/uL (4.0-5.6)
[2016-10-04 08:34] LABS: MANUAL DIFF NO %
[2016-10-05 05:13] LABS: BASOPHILS 0.2 %; BASOPHILS ABSOLUTE 0.01 10/3/uL (0.0-0.16); EOSINOPHILS 0.8 %; EOSINOPHILS ABSOLUTE 0.04 10/3/uL (0.0-0.53); HEMATOCRIT 25.6 % (36.0-48.0); HEMOGLOBIN 8.2 g/dL (12.0-16.0); IMMATURE GRANULOCYTES 1.7 %; IMMATURE GRANULOCYTES ABSOLUTE 0.09 10/3/uL (0.0-0.11); LYMPHOCYTES 16.3 %; LYMPHOCYTES ABSOLUTE 0.85 10/3/uL (0.67-4.30); MEAN CORPUSCULAR HEMOGLOB 31.8 pg (26.0-34.0); MEAN PLATELET VOLUME 9.2 fL (9.2-13.0); MONOCYTES 2.7 %; MONOCYTES ABSOLUTE 0.14 10/3/uL (0.21-1.20); NEUTROPHILS 78.3 %; PLATELET COUNT 230 10/3/uL (150-400); RED CELL COUNT 2.58 10/6/uL (4.0-5.6); WHITE BLOOD CELLS 5.2 10/3/uL (4.5-10.5)
[2016-10-05 05:14] LABS: MANUAL DIFF NO %; MEAN CORPUSCULAR VOLUME 99.2 fL (80-100)
[2016-10-05 05:25] LABS: INTERNATIONAL NORMAL RATI 1.1 UNITS (-); PROTIME (NOT ORD) 13.9 SEC (12.0-14.5)
[2016-10-05 05:28] LABS: BUN (BLOOD UREA NITROGEN) 20 MG/DL (6-23); CALCIUM, SERUM 8.5 MG/DL (8.5-10.4); CHLORIDE, SERUM 110 MMOL/L (96-112); CO2 (CARBON DIOXIDE) 29 MMOL/L (24-34); CREATININE 0.91 MG/DL (0.55-1.02); GFR AFRICAN AMERICAN 71 ML/MIN (>=60); GFR NON AFRICAN AMERICAN 61 ML/MIN (>=60); GLUCOSE, SERUM 84 MG/DL (60-99); POTASSIUM, SERUM 3.3 MMOL/L (3.5-5.3); SODIUM, SERUM 148 MMOL/L (135-148)
[2016-10-06 05:16] LABS: HEMATOCRIT 26.6 % (36.0-48.0); HEMOGLOBIN 8.2 g/dL (12.0-16.0); MEAN CORPUS HGB CONC 30.8 g/dL (32.0-36.0); MEAN CORPUSCULAR HEMOGLOB 30.3 pg (26.0-34.0); MEAN CORPUSCULAR VOLUME 98.2 fL (80-100); PLATELET COUNT 225 10/3/uL (150-400); RBC DISTRIBUTION WIDTH 22.5 % (12.0-16.0); RED CELL COUNT 2.71 10/6/uL (4.0-5.6); WHITE BLOOD CELLS 4.2 10/3/uL (4.5-10.5)
[2016-10-06 05:21] LABS: MANUAL DIFF YES %
[2016-10-06 05:26] LABS: INTERNATIONAL NORMAL RATI 1.1 UNITS (-); PROTIME (NOT ORD) 13.6 SEC (12.0-14.5)
[2016-10-06 05:32] LABS: CALCIUM, SERUM 8.5 MG/DL (8.5-10.4); CHLORIDE, SERUM 106 MMOL/L (96-112); CO2 (CARBON DIOXIDE) 29 MMOL/L (24-34); CREATININE 0.92 MG/DL (0.55-1.02); GFR AFRICAN AMERICAN 70 ML/MIN (>=60); GFR NON AFRICAN AMERICAN 60 ML/MIN (>=60); GLUCOSE, SERUM 72 MG/DL (60-99); POTASSIUM, SERUM 3.5 MMOL/L (3.5-5.3); SODIUM, SERUM 145 MMOL/L (135-148)
[2016-10-06 05:39] LABS: BUN (BLOOD UREA NITROGEN) 16 MG/DL (6-23)
[2016-10-06 06:32] LABS: LYMPHOCYTES 22 %; LYMPHOCYTES ABSOLUTE (CALC) 0.92 10/3/uL (0.67-4.30); NEUTROPHILS ABSOLUTE (CALC) 3.28 10/3/uL (2.02-8.40); PLATELET ESTIMATE ADQ (ADEQUATE); POLYCHROMASIA 1+ (2-5/OIF) (0-1/OIF); SEGMENTED NEUTROPHIL (0) 78 %; TOTAL NUCLEATED CELLS 100
[2016-10-07 06:05] LABS: BASOPHILS 0.3 %; BASOPHILS ABSOLUTE 0.01 10/3/uL (0.0-0.16); EOSINOPHILS 0.8 %; EOSINOPHILS ABSOLUTE 0.03 10/3/uL (0.0-0.53); IMMATURE GRANULOCYTES 1.6 %; IMMATURE GRANULOCYTES ABSOLUTE 0.06 10/3/uL (0.0-0.11); LYMPHOCYTES 18.9 %; MEAN CORPUS HGB CONC 31.5 g/dL (32.0-36.0); MEAN CORPUSCULAR HEMOGLOB 31.4 pg (26.0-34.0); MEAN CORPUSCULAR VOLUME 99.5 fL (80-100); MEAN PLATELET VOLUME 9.6 fL (9.2-13.0); MONOCYTES 5.4 %; NEUTROPHILS ABSOLUTE 2.71 10/3/uL (2.02-8.40); PLATELET COUNT 182 10/3/uL (150-400); RBC DISTRIBUTION WIDTH 22.7 % (12.0-16.0); WHITE BLOOD CELLS 3.7 10/3/uL (4.5-10.5)
[2016-10-07 06:06] LABS: HEMATOCRIT 21.9 % (36.0-48.0); HEMOGLOBIN 6.9 g/dL (12.0-16.0)
[2016-10-07 06:07] LABS: MANUAL DIFF NO %
[2016-10-07 06:13] LABS: INTERNATIONAL NORMAL RATI 1.2 UNITS (-); PROTIME (NOT ORD) 15.1 SEC (12.0-14.5)
[2016-10-07 06:18] LABS: BUN (BLOOD UREA NITROGEN) 19 MG/DL (6-23); CALCIUM, SERUM 8.1 MG/DL (8.5-10.4); CHLORIDE, SERUM 107 MMOL/L (96-112); CO2 (CARBON DIOXIDE) 30 MMOL/L (24-34); CREATININE 0.74 MG/DL (0.55-1.02); GFR AFRICAN AMERICAN 91 ML/MIN (>=60); GFR NON AFRICAN AMERICAN 78 ML/MIN (>=60); GLUCOSE, SERUM 75 MG/DL (60-99); POTASSIUM, SERUM 3.4 MMOL/L (3.5-5.3); SODIUM, SERUM 145 MMOL/L (135-148)
[2016-10-07 07:14] LABS: PLATELET ESTIMATE ADQ (ADEQUATE)
[2016-10-08 05:09] LABS: BASOPHILS 0.3 %; BASOPHILS ABSOLUTE 0.01 10/3/uL (0.0-0.16); EOSINOPHILS 0.3 %; EOSINOPHILS ABSOLUTE 0.01 10/3/uL (0.0-0.53); IMMATURE GRANULOCYTES ABSOLUTE 0.08 10/3/uL (0.0-0.11); LYMPHOCYTES 13.8 %; LYMPHOCYTES ABSOLUTE 0.55 10/3/uL (0.67-4.30); MEAN CORPUS HGB CONC 31.7 g/dL (32.0-36.0); MEAN CORPUSCULAR HEMOGLOB 29.8 pg (26.0-34.0); MEAN PLATELET VOLUME 9.6 fL (9.2-13.0); MONOCYTES ABSOLUTE 0.24 10/3/uL (0.21-1.20); NEUTROPHILS 77.6 %; NEUTROPHILS ABSOLUTE 3.09 10/3/uL (2.02-8.40); NUCLEATED RED BLOOD CELLS 2.8 /100WBC (0-0); PLATELET COUNT 162 10/3/uL (150-400); RBC DISTRIBUTION WIDTH 21.2 % (12.0-16.0)
[2016-10-08 05:12] LABS: BUN (BLOOD UREA NITROGEN) 21 MG/DL (6-23); CALCIUM, SERUM 8.5 MG/DL (8.5-10.4); CHLORIDE, SERUM 109 MMOL/L (96-112); CO2 (CARBON DIOXIDE) 26 MMOL/L (24-34); GFR AFRICAN AMERICAN 71 ML/MIN (>=60); GFR NON AFRICAN AMERICAN 62 ML/MIN (>=60); GLUCOSE, SERUM 77 MG/DL (60-99); POTASSIUM, SERUM 3.5 MMOL/L (3.5-5.3); SODIUM, SERUM 146 MMOL/L (135-148)
[2016-10-08 05:15] LABS: HEMATOCRIT 28.1 % (36.0-48.0); HEMOGLOBIN 8.9 g/dL (12.0-16.0); MANUAL DIFF NO %; RED CELL COUNT 2.99 10/6/uL (4.0-5.6)
[2016-10-08 05:19] LABS: PROTIME (NOT ORD) < 10.0 SEC (12.0-14.5)
[2016-10-08 05:20] LABS: INTERNATIONAL NORMAL RATI < 0.7 UNITS (-)
[2016-10-09 05:45] LABS: BASOPHILS 0.3 %; BASOPHILS ABSOLUTE 0.01 10/3/uL (0.0-0.16); EOSINOPHILS 0.9 %; EOSINOPHILS ABSOLUTE 0.03 10/3/uL (0.0-0.53); HEMOGLOBIN 7.9 g/dL (12.0-16.0); LYMPHOCYTES 14.5 %; LYMPHOCYTES ABSOLUTE 0.48 10/3/uL (0.67-4.30); MEAN CORPUS HGB CONC 32.9 g/dL (32.0-36.0); MEAN CORPUSCULAR HEMOGLOB 31.6 pg (26.0-34.0); MEAN PLATELET VOLUME 9.6 fL (9.2-13.0); MONOCYTES 6.1 %; NEUTROPHILS 75.2 %; NEUTROPHILS ABSOLUTE 2.48 10/3/uL (2.02-8.40); PLATELET COUNT 125 10/3/uL (150-400); RBC DISTRIBUTION WIDTH 21.5 % (12.0-16.0); WHITE BLOOD CELLS 3.3 10/3/uL (4.5-10.5)
[2016-10-09 05:50] LABS: MANUAL DIFF NO %
[2016-10-09 05:56] LABS: BUN (BLOOD UREA NITROGEN) 20 MG/DL (6-23); CALCIUM, SERUM 8.3 MG/DL (8.5-10.4); CHLORIDE, SERUM 109 MMOL/L (96-112); CO2 (CARBON DIOXIDE) 27 MMOL/L (24-34); CREATININE 0.73 MG/DL (0.55-1.02); GFR AFRICAN AMERICAN 92 ML/MIN (>=60); GFR NON AFRICAN AMERICAN 79 ML/MIN (>=60); GLUCOSE, SERUM 82 MG/DL (60-99); POTASSIUM, SERUM 3.3 MMOL/L (3.5-5.3); SODIUM, SERUM 145 MMOL/L (135-148)
[2016-10-09 05:59] LABS: PROTIME (NOT ORD) < 10.0 SEC (12.0-14.5)
[2016-10-09 06:00] LABS: INTERNATIONAL NORMAL RATI < 0.7 UNITS (-)
[2016-10-10 06:06] LABS: BUN (BLOOD UREA NITROGEN) 21 MG/DL (6-23); CHLORIDE, SERUM 109 MMOL/L (96-112); CO2 (CARBON DIOXIDE) 26 MMOL/L (24-34); CREATININE 0.96 MG/DL (0.55-1.02); GFR AFRICAN AMERICAN 66 ML/MIN (>=60); GFR NON AFRICAN AMERICAN 57 ML/MIN (>=60); GLUCOSE, SERUM 75 MG/DL (60-99); POTASSIUM, SERUM 3.2 MMOL/L (3.5-5.3); SODIUM, SERUM 147 MMOL/L (135-148)
[2016-10-10 06:44] LABS: PROTIME (NOT ORD) < 10.0 SEC (12.0-14.5)
[2016-10-10 06:45] LABS: INTERNATIONAL NORMAL RATI < 0.7 UNITS (-)
[2016-10-10 07:15] LABS: BASOPHILS 0 %; EOSINOPHILS 0.6 %; EOSINOPHILS ABSOLUTE 0.02 10/3/uL (0.0-0.53); HEMOGLOBIN 7.4 g/dL (12.0-16.0); IMMATURE GRANULOCYTES 1.4 %; IMMATURE GRANULOCYTES ABSOLUTE 0.05 10/3/uL (0.0-0.11); LYMPHOCYTES ABSOLUTE 0.43 10/3/uL (0.67-4.30); MEAN CORPUS HGB CONC 32.2 g/dL (32.0-36.0); MEAN CORPUSCULAR HEMOGLOB 31.4 pg (26.0-34.0); MEAN CORPUSCULAR VOLUME 97.5 fL (80-100); MEAN PLATELET VOLUME 9.7 fL (9.2-13.0); MONOCYTES 4.5 %; MONOCYTES ABSOLUTE 0.16 10/3/uL (0.21-1.20); NEUTROPHILS 81.5 %; NEUTROPHILS ABSOLUTE 2.92 10/3/uL (2.02-8.40); PLATELET COUNT 120 10/3/uL (150-400); RBC DISTRIBUTION WIDTH 21.9 % (12.0-16.0); RED CELL COUNT 2.36 10/6/uL (4.0-5.6); WHITE BLOOD CELLS 3.6 10/3/uL (4.5-10.5)
[2016-10-10 07:18] LABS: MANUAL DIFF NO %
[2016-10-11 04:18] LABS: BASOPHILS 0 %; EOSINOPHILS 0.7 %; EOSINOPHILS ABSOLUTE 0.02 10/3/uL (0.0-0.53); HEMATOCRIT 24.9 % (36.0-48.0); HEMOGLOBIN 7.9 g/dL (12.0-16.0); IMMATURE GRANULOCYTES 3.2 %; IMMATURE GRANULOCYTES ABSOLUTE 0.09 10/3/uL (0.0-0.11); LYMPHOCYTES 15.5 %; LYMPHOCYTES ABSOLUTE 0.44 10/3/uL (0.67-4.30); MANUAL DIFF NO %; MEAN CORPUS HGB CONC 31.7 g/dL (32.0-36.0); MEAN CORPUSCULAR HEMOGLOB 29.8 pg (26.0-34.0); MEAN PLATELET VOLUME 9.7 fL (9.2-13.0); MONOCYTES 6.7 %; MONOCYTES ABSOLUTE 0.19 10/3/uL (0.21-1.20); NEUTROPHILS 73.9 %; NEUTROPHILS ABSOLUTE 2.09 10/3/uL (2.02-8.40); PLATELET COUNT 102 10/3/uL (150-400); RBC DISTRIBUTION WIDTH 21.9 % (12.0-16.0); RED CELL COUNT 2.65 10/6/uL (4.0-5.6); WHITE BLOOD CELLS 2.8 10/3/uL (4.5-10.5)
[2016-10-11 04:26] LABS: BUN (BLOOD UREA NITROGEN) 20 MG/DL (6-23); CHLORIDE, SERUM 111 MMOL/L (96-112); CO2 (CARBON DIOXIDE) 27 MMOL/L (24-34); CREATININE 0.78 MG/DL (0.55-1.02); GFR AFRICAN AMERICAN 85 ML/MIN (>=60); GFR NON AFRICAN AMERICAN 73 ML/MIN (>=60); GLUCOSE, SERUM 81 MG/DL (60-99); POTASSIUM, SERUM 3.5 MMOL/L (3.5-5.3); SODIUM, SERUM 147 MMOL/L (135-148)
[2016-10-12 04:44] LABS: HEMATOCRIT 24.5 % (36.0-48.0); HEMOGLOBIN 7.7 g/dL (12.0-16.0); MEAN CORPUS HGB CONC 31.4 g/dL (32.0-36.0); MEAN CORPUSCULAR HEMOGLOB 30.2 pg (26.0-34.0); MEAN CORPUSCULAR VOLUME 96.1 fL (80-100); PLATELET COUNT 127 10/3/uL (150-400); RBC DISTRIBUTION WIDTH 22.1 % (12.0-16.0); RED CELL COUNT 2.55 10/6/uL (4.0-5.6); WHITE BLOOD CELLS 3.2 10/3/uL (4.5-10.5)
[2016-10-12 04:47] LABS: MANUAL DIFF YES %
[2016-10-12 04:59] LABS: BUN (BLOOD UREA NITROGEN) 23 MG/DL (6-23); CALCIUM, SERUM 8.5 MG/DL (8.5-10.4); CHLORIDE, SERUM 109 MMOL/L (96-112); CO2 (CARBON DIOXIDE) 25 MMOL/L (24-34); GFR AFRICAN AMERICAN 82 ML/MIN (>=60); GFR NON AFRICAN AMERICAN 71 ML/MIN (>=60); GLUCOSE, SERUM 80 MG/DL (60-99); POTASSIUM, SERUM 3.6 MMOL/L (3.5-5.3); SODIUM, SERUM 145 MMOL/L (135-148)
[2016-10-12 05:13] LABS: BAND NEUTROPHILS 1 %; BASOPHILS 1 %; BASOPHILS ABSOLUTE (CALC) 0.03 10/3/uL (0.0-0.16); EOSINOPHILS 1 %; EOSINOPHILS ABSOLUTE (CALC) 0.03 10/3/uL (0.0-0.53); IMMATURE GRANS ABSOLUTE (CALC) 0.03 10/3/uL (0.0-0.11); LYMPHOCYTES 16 %; LYMPHOCYTES ABSOLUTE (CALC) 0.51 10/3/uL (0.67-4.30); METAMYELOCYTES 1 %; MONOCYTES 2 %; MONOCYTES ABSOLUTE (CALC) 0.06 10/3/uL (0.21-1.20); NEUTROPHILS ABSOLUTE (CALC) 2.53 10/3/uL (2.02-8.40); SEGMENTED NEUTROPHIL (0) 78 %; TOTAL NUCLEATED CELLS 100
[2016-10-12 05:14] LABS: PLATELET ESTIMATE SLT DEC (ADEQUATE); POLYCHROMASIA 1+ (2-5/OIF) (0-1/OIF)
[2016-10-13 04:52] LABS: BASOPHILS 0.3 %; BASOPHILS ABSOLUTE 0.01 10/3/uL (0.0-0.16); BUN (BLOOD UREA NITROGEN) 26 MG/DL (6-23); CALCIUM, SERUM 8.8 MG/DL (8.5-10.4); CHLORIDE, SERUM 112 MMOL/L (96-112); CO2 (CARBON DIOXIDE) 26 MMOL/L (24-34); CREATININE 0.86 MG/DL (0.55-1.02); EOSINOPHILS 0.3 %; EOSINOPHILS ABSOLUTE 0.01 10/3/uL (0.0-0.53); GFR AFRICAN AMERICAN 76 ML/MIN (>=60); GFR NON AFRICAN AMERICAN 65 ML/MIN (>=60); GLUCOSE, SERUM 95 MG/DL (60-99); HEMATOCRIT 22.2 % (36.0-48.0); HEMOGLOBIN 7.1 g/dL (12.0-16.0); IMMATURE GRANULOCYTES 3.2 %; LYMPHOCYTES 15.8 %; LYMPHOCYTES ABSOLUTE 0.49 10/3/uL (0.67-4.30); MEAN CORPUSCULAR HEMOGLOB 31.3 pg (26.0-34.0); MEAN CORPUSCULAR VOLUME 97.8 fL (80-100); MEAN PLATELET VOLUME 9.7 fL (9.2-13.0); MONOCYTES 7.7 %; MONOCYTES ABSOLUTE 0.24 10/3/uL (0.21-1.20); NEUTROPHILS 72.7 %; NEUTROPHILS ABSOLUTE 2.26 10/3/uL (2.02-8.40); NUCLEATED RED BLOOD CELLS 3.4 /100WBC (0-0); PLATELET COUNT 126 10/3/uL (150-400); POTASSIUM, SERUM 3.6 MMOL/L (3.5-5.3); RBC DISTRIBUTION WIDTH 22.3 % (12.0-16.0); RED CELL COUNT 2.27 10/6/uL (4.0-5.6); SODIUM, SERUM 147 MMOL/L (135-148); WHITE BLOOD CELLS 3.1 10/3/uL (4.5-10.5)
[2016-10-13 04:53] LABS: MANUAL DIFF NO %
[2016-10-13 06:19] LABS: ANISOCYTOSIS 1+ (5-10/OIF) (0-5/OIF); PLATELET ESTIMATE SLT DEC (ADEQUATE)
[2016-10-14 03:30] LABS: HEMATOCRIT 24.4 % (36.0-48.0); HEMOGLOBIN 7.9 g/dL (12.0-16.0); MEAN CORPUS HGB CONC 32.4 g/dL (32.0-36.0); MEAN CORPUSCULAR HEMOGLOB 30.9 pg (26.0-34.0); MEAN CORPUSCULAR VOLUME 95.3 fL (80-100); MEAN PLATELET VOLUME 9.3 fL (9.2-13.0); PLATELET COUNT 124 10/3/uL (150-400); RBC DISTRIBUTION WIDTH 21.9 % (12.0-16.0); RED CELL COUNT 2.56 10/6/uL (4.0-5.6)
[2016-10-14 03:31] LABS: MANUAL DIFF YES %
[2016-10-14 03:39] LABS: PARTIAL THROMBO TIME 31.2 SEC (22.5-37.2)
[2016-10-14 03:42] LABS: CALCIUM, SERUM 7.9 MG/DL (8.5-10.4); CHLORIDE, SERUM 113 MMOL/L (96-112); CO2 (CARBON DIOXIDE) 27 MMOL/L (24-34); CREATININE 0.76 MG/DL (0.55-1.02); GFR AFRICAN AMERICAN 88 ML/MIN (>=60); GFR NON AFRICAN AMERICAN 76 ML/MIN (>=60); GLUCOSE, SERUM 84 MG/DL (60-99); POTASSIUM, SERUM 3.4 MMOL/L (3.5-5.3); SODIUM, SERUM 149 MMOL/L (135-148)
[2016-10-14 03:47] LABS: BUN (BLOOD UREA NITROGEN) 17 MG/DL (6-23)
[2016-10-14 03:49] LABS: BAND NEUTROPHILS 4 %; LYMPHOCYTES 18 %; LYMPHOCYTES ABSOLUTE (CALC) 0.54 10/3/uL (0.67-4.30); NEUTROPHILS ABSOLUTE (CALC) 2.46 10/3/uL (2.02-8.40); PLATELET ESTIMATE SLT DEC (ADEQUATE); POLYCHROMASIA 1+ (2-5/OIF) (0-1/OIF); SEGMENTED NEUTROPHIL (0) 78 %; TOTAL NUCLEATED CELLS 100
[2016-10-14 04:08] LABS: FACTOR VIII ASSAY (ACTIVITY) 41 %ACTIV (50-150)
[2016-10-15 04:38] LABS: BUN (BLOOD UREA NITROGEN) 17 MG/DL (6-23); CALCIUM, SERUM 7.9 MG/DL (8.5-10.4); CHLORIDE, SERUM 110 MMOL/L (96-112); CO2 (CARBON DIOXIDE) 28 MMOL/L (24-34); CREATININE 0.78 MG/DL (0.55-1.02); GFR AFRICAN AMERICAN 85 ML/MIN (>=60); GFR NON AFRICAN AMERICAN 73 ML/MIN (>=60); GLUCOSE, SERUM 95 MG/DL (60-99); POTASSIUM, SERUM 3.4 MMOL/L (3.5-5.3); SODIUM, SERUM 146 MMOL/L (135-148)
[2016-10-15 07:48] LABS: BASOPHILS 0.4 %; BASOPHILS ABSOLUTE 0.01 10/3/uL (0.0-0.16); EOSINOPHILS 0 %; HEMATOCRIT 23.1 % (36.0-48.0); HEMOGLOBIN 7.4 g/dL (12.0-16.0); IMMATURE GRANULOCYTES 3.9 %; IMMATURE GRANULOCYTES ABSOLUTE 0.11 10/3/uL (0.0-0.11); LYMPHOCYTES 26.5 %; LYMPHOCYTES ABSOLUTE 0.75 10/3/uL (0.67-4.30); MEAN CORPUSCULAR HEMOGLOB 30.8 pg (26.0-34.0); MEAN CORPUSCULAR VOLUME 96.3 fL (80-100); MEAN PLATELET VOLUME 9.5 fL (9.2-13.0); MONOCYTES 6.4 %; MONOCYTES ABSOLUTE 0.18 10/3/uL (0.21-1.20); NEUTROPHILS 62.8 %; NEUTROPHILS ABSOLUTE 1.78 10/3/uL (2.02-8.40); PLATELET COUNT 134 10/3/uL (150-400); RBC DISTRIBUTION WIDTH 22.1 % (12.0-16.0); WHITE BLOOD CELLS 2.8 10/3/uL (4.5-10.5)
[2016-10-15 07:50] LABS: MANUAL DIFF NO %
[2016-10-15 08:15] LABS: HYPOCHROMIA 1+ (3-10/OIF) (0-2/OIF); MACROCYTES 1+ (5-10/OIF) (0-5/OIF); PLATELET ESTIMATE SLT DEC (ADEQUATE)
[2016-10-16 04:31] LABS: HEMATOCRIT 23.4 % (36.0-48.0); HEMOGLOBIN 7.4 g/dL (12.0-16.0); MEAN CORPUS HGB CONC 31.6 g/dL (32.0-36.0); MEAN CORPUSCULAR HEMOGLOB 30.1 pg (26.0-34.0); MEAN CORPUSCULAR VOLUME 95.1 fL (80-100); MEAN PLATELET VOLUME 9.3 fL (9.2-13.0); PLATELET COUNT 129 10/3/uL (150-400); RBC DISTRIBUTION WIDTH 22.3 % (12.0-16.0); RED CELL COUNT 2.46 10/6/uL (4.0-5.6); WHITE BLOOD CELLS 3.3 10/3/uL (4.5-10.5)
[2016-10-16 04:39] LABS: BUN (BLOOD UREA NITROGEN) 19 MG/DL (6-23); CALCIUM, SERUM 8.2 MG/DL (8.5-10.4); CHLORIDE, SERUM 110 MMOL/L (96-112); CO2 (CARBON DIOXIDE) 28 MMOL/L (24-34); CREATININE 0.83 MG/DL (0.55-1.02); GFR AFRICAN AMERICAN 79 ML/MIN (>=60); GFR NON AFRICAN AMERICAN 68 ML/MIN (>=60); GLUCOSE, SERUM 97 MG/DL (60-99); POTASSIUM, SERUM 3.6 MMOL/L (3.5-5.3); SODIUM, SERUM 145 MMOL/L (135-148)
[2016-10-16 04:40] LABS: MANUAL DIFF YES %
[2016-10-16 05:48] LABS: BAND NEUTROPHILS 3 %; LYMPHOCYTES 25 %; LYMPHOCYTES ABSOLUTE (CALC) 0.83 10/3/uL (0.67-4.30); MONOCYTES 6 %; NEUTROPHILS ABSOLUTE (CALC) 2.28 10/3/uL (2.02-8.40); SEGMENTED NEUTROPHIL (0) 66 %; TOTAL NUCLEATED CELLS 100
[2016-10-16 05:49] LABS: ELLIPTOCYTES 1+ (3-10/OIF) (0-2/OIF); PLATELET ESTIMATE SLT DEC (ADEQUATE); POLYCHROMASIA 1+ (2-5/OIF) (0-1/OIF)
[2016-10-17 04:13] LABS: BASOPHILS 0 %; EOSINOPHILS 0 %; HEMATOCRIT 24.8 % (36.0-48.0); HEMOGLOBIN 7.6 g/dL (12.0-16.0); IMMATURE GRANULOCYTES 2.4 %; IMMATURE GRANULOCYTES ABSOLUTE 0.08 10/3/uL (0.0-0.11); LYMPHOCYTES 21.1 %; LYMPHOCYTES ABSOLUTE 0.71 10/3/uL (0.67-4.30); MEAN CORPUS HGB CONC 30.6 g/dL (32.0-36.0); MEAN CORPUSCULAR HEMOGLOB 30.4 pg (26.0-34.0); MEAN PLATELET VOLUME 9.4 fL (9.2-13.0); MONOCYTES 6.3 %; MONOCYTES ABSOLUTE 0.21 10/3/uL (0.21-1.20); NEUTROPHILS 70.2 %; NEUTROPHILS ABSOLUTE 2.36 10/3/uL (2.02-8.40); PLATELET COUNT 135 10/3/uL (150-400); RBC DISTRIBUTION WIDTH 21.9 % (12.0-16.0); WHITE BLOOD CELLS 3.4 10/3/uL (4.5-10.5)
[2016-10-17 04:23] LABS: MANUAL DIFF NO %; MEAN CORPUSCULAR VOLUME 99.2 fL (80-100)
[2016-10-18 05:23] LABS: BASOPHILS 0.3 %; BASOPHILS ABSOLUTE 0.01 10/3/uL (0.0-0.16); EOSINOPHILS 0 %; HEMATOCRIT 24.8 % (36.0-48.0); HEMOGLOBIN 7.7 g/dL (12.0-16.0); IMMATURE GRANULOCYTES ABSOLUTE 0.12 10/3/uL (0.0-0.11); LYMPHOCYTES 20.2 %; MANUAL DIFF NO %; MEAN CORPUSCULAR HEMOGLOB 30.7 pg (26.0-34.0); MEAN CORPUSCULAR VOLUME 98.8 fL (80-100); MEAN PLATELET VOLUME 9.4 fL (9.2-13.0); MONOCYTES 9.1 %; MONOCYTES ABSOLUTE 0.36 10/3/uL (0.21-1.20); NEUTROPHILS 67.4 %; NEUTROPHILS ABSOLUTE 2.68 10/3/uL (2.02-8.40); PLATELET COUNT 142 10/3/uL (150-400); RBC DISTRIBUTION WIDTH 21.5 % (12.0-16.0); RED CELL COUNT 2.51 10/6/uL (4.0-5.6)
[2016-10-19 05:48] LABS: BASOPHILS 0 %; EOSINOPHILS 0.2 %; EOSINOPHILS ABSOLUTE 0.01 10/3/uL (0.0-0.53); HEMATOCRIT 24.5 % (36.0-48.0); HEMOGLOBIN 7.5 g/dL (12.0-16.0); IMMATURE GRANULOCYTES 3.9 %; IMMATURE GRANULOCYTES ABSOLUTE 0.17 10/3/uL (0.0-0.11); LYMPHOCYTES 13.8 %; MEAN CORPUS HGB CONC 30.6 g/dL (32.0-36.0); MEAN CORPUSCULAR HEMOGLOB 30.4 pg (26.0-34.0); MEAN CORPUSCULAR VOLUME 99.2 fL (80-100); MEAN PLATELET VOLUME 9.2 fL (9.2-13.0); MONOCYTES 6.7 %; MONOCYTES ABSOLUTE 0.29 10/3/uL (0.21-1.20); NEUTROPHILS 75.4 %; NEUTROPHILS ABSOLUTE 3.28 10/3/uL (2.02-8.40); PLATELET COUNT 152 10/3/uL (150-400); RBC DISTRIBUTION WIDTH 21.1 % (12.0-16.0); RED CELL COUNT 2.47 10/6/uL (4.0-5.6); WHITE BLOOD CELLS 4.4 10/3/uL (4.5-10.5)
[2016-10-19 05:50] LABS: MANUAL DIFF NO %
[2016-10-21] MEDS ORDERED: SUCR PO (12:28)
[2016-10-21] MEDS ORDERED: PROTONIX PO (12:28)
[2016-10-21] MEDS ORDERED: P20 PO (12:29)
== END 2016-10-21 17:07 | disposition home health service (06) | DRG 901 ==
LOC: ER 19:10 → 7NO 23:37 → 4EA 09-19 22:50
PROVIDERS: Hospitalist; Internal Medicine; Internal Medicine Gastroenterology; Internal Medicine Hematology & Oncology; Nurse Practitioner Family; Physician Assistant; Specialist; Surgery
PROC: 0JCL0ZZ Extirpation of Matter from Right Upper Leg Subcutaneous Tissue and Fascia, Open Approach (ICD-10-PCS; 2016-09-02)
PROC: 30233N1 Transfusion of Nonautologous Red Blood Cells into Peripheral Vein, Percutaneous Approach (ICD-10-PCS; 2016-09-02)
PROC: 04QK0ZZ Repair Right Femoral Artery, Open Approach (ICD-10-PCS; principal; 2016-09-02 13:45)
PROC: 3E03305 Introduction of Other Antineoplastic into Peripheral Vein, Percutaneous Approach (ICD-10-PCS; 2016-09-19)
PROC: 02HV33Z Insertion of Infusion Device into Superior Vena Cava, Percutaneous Approach (ICD-10-PCS; 2016-09-24)
PROC: 4A02X4A Measurement of Cardiac Electrical Activity, Guidance, External Approach (ICD-10-PCS; 2016-09-24)
PROC: 30233N0 Transfusion of Autologous Red Blood Cells into Peripheral Vein, Percutaneous Approach (ICD-10-PCS; 2016-09-24)
PROC: 0KBQ0ZZ Excision of Right Upper Leg Muscle, Open Approach (ICD-10-PCS; 2016-09-26)
PROC: 0DJ08ZZ Inspection of Upper Intestinal Tract, Via Natural or Artificial Opening Endoscopic (ICD-10-PCS; 2016-09-26)
PROC: 0DBQ8ZZ Excision of Anus, Via Natural or Artificial Opening Endoscopic (ICD-10-PCS; 2016-09-26 08:00)
PROC: 0JBL0ZZ Excision of Right Upper Leg Subcutaneous Tissue and Fascia, Open Approach (ICD-10-PCS; 2016-09-30)
DX: I97.638 Postprocedural hematoma of a circulatory system organ or structure following other circulatory system procedure (principal); D66 Hereditary factor VIII deficiency; N17.9 Acute kidney failure, unspecified; E87.2 Acidosis; D61.818 Other pancytopenia; E87.1 Hypo-osmolality and hyponatremia; B99.8 Other infectious disease; D62 Acute posthemorrhagic anemia; T81.4XXA Infection following a procedure, initial encounter; R31.0 Gross hematuria; I10 Essential (primary) hypertension; E78.5 Hyperlipidemia, unspecified; K57.30 Diverticulosis of large intestine without perforation or abscess without bleeding; E66.9 Obesity, unspecified; Z68.33 Body mass index [BMI] 33.0-33.9, adult; R33.9 Retention of urine, unspecified; E87.6 Hypokalemia; Q27.39 Arteriovenous malformation, other site; B96.20 Unspecified Escherichia coli [E. coli] as the cause of diseases classified elsewhere
CPT/HCPCS: 36415; 36430; 36569; 71010; 74177; 78278; 80048; 80069; 81001; 82272; 82728; 83540; 83550; 83605; 83735; 84100; 84132; 84145; 84484; 85014; 85018; 85025; 85045; 85240; 85335; 85610; 85730; 86850; 86900; 86901; 86920; 87040; 87070; 87075; 87077; 87086; 87150; 87186; 87205; 88304; 88305; 93005; 93971; 96365; 97110-GO; 97110-GP; 97116-GP; 97161-GP; 97164-GP; 97166-GO; 97530-GP; 97535-GO; 99291; A9270-GY; A9560; C1751; G0463; J0290; J0360; J0692; J1170; J1200; J2270; J2405; J2543; J2597; J2916; J3010; J7189; J7198; J9070; J9310; P9016; Q9967

== ENCOUNTER 2016-11-10 19:47 | Inpatient (IN) | payer OTHER ==
--- NOTE | ~2016-11-10 | CN ---
Consultation Report [facility] [address] [place]. [address] NAME: JUAN MILLER : 39 STATUS : ADM IN PAT#: [id number] AGE: 76 ADM/REG DATE : 11/10/16 MR#: [id number] REPORT SERV DATE: 11/12/16 DICTATED BY: GLADYS MIRANDA DATE: 11/12/16 REPORT STATUS : Draft TRANSCRIBED BY: MODL DATE: 11/12/16 GI CONSULTATION DATE OF CONSULTATION: 11/12/2016 REASON FOR CONSULTATION: Evaluation and management of a possibly acute cholecystitis. HISTORY OF PRESENT ILLNESS: Ms. Miller is a 76-year-old female patient, who is known to Dr. Waite. We saw initially in July 2016 secondary to lower GI bleed, who underwent two separate colonoscopies with no active site of bleeding found. Ultimately, she underwent interventional radiology treatment with an arteriogram with embolization. Bleeding was subsequently stopped. She was discharged, thus however, she returned to the hospital in August 2016 with a chief complaint of right groin pain, was found to have a right groin hematoma and had to undergo evacuation and repair with Dr. Sadler. She was diagnosed with E. coli bacteremia from the wound as well as factor VIII inhibitor coagulopathy, being seen by Dr. Palacios of Hematology and was undergoing treatment for that. We saw her in September for lower GI bleeding. She underwent an EGD and a colonoscopy with Dr. Harman on 09/26/2016. EGD was completely normal. Colonoscopy showed diverticulosis throughout the entire colon, many small polyps in the splenic flexure, transverse colon, ascending colon, and in the cecum, and one 15 mm polyp 30 cm proximal to the anus, resected and retrieved. Clips were placed and injected. She had a small bowel capsule exam which by report was normal and she was subsequently discharged from the hospital from that hospitalization on 10/20/2016. She was being treated for her factor VIII inhibitor coagulopathy with steroids which she has been tapered down and is on one dose a day now. Her right groin wound has been maintained at home with a VAC and per report of the nurse, it ultimately will be removed per Dr. Sadler's request. She came into the hospital for fevers and neutropenia. She states that she began to have fevers on the up to 101 degrees. She was seen by Dr. Palacios's nurse practitioner and was placed on Levaquin, but she continued to have persistent fevers. On day of admission, she had a fever up to 101.3. She had some complaints of right leg tingling. No abdominal pain. No nausea. No vomiting. She has had some light diarrhea. She attributed to antibiotic usage but none since. Her white blood cell count was low at 0.6. She is on steroids. She had a CT scan of the abdomen on admission secondary to the fever and it was reported that she had some right abdominal tenderness. On that exam, it showed diffusely thickened gallbladder with mild infiltration of the surrounding fat planes and with small discrete radiodense gallstones at the gallbladder neck consistent with CT evidence of acute cholecystitis as well as nonspecific hepatic steatosis pattern. She underwent a gallbladder ultrasound on the , which showed thickened gallbladder wall and suggest a component of cholecystitis similar to the previous CT. However, thickening of the gallbladder wall could be secondary to ascites, hypoproteinemia as well as hepatitis with no biliary dilation, thus prompting a GI consultation. I have discussed with the patient. She, at present, denies any pain. She does not want her gallbladder removed. I have discussed with Dr. Marrufo. At present, we would recommend empiric antibiotic coverage and a surgical consultation for further delineation of whether this is acute cholecystitis that needs further surgical management. Consultation Report [address] [address] NAME: JUAN MILLER : 39 STATUS : ADM IN [facility]#: [id number] AGE: 76 ADM/REG DATE : 11/10/16 MR#: [id number] REPORT SERV DATE: 11/12/16 DICTATED BY: GLADYS MIRANDA DATE: 11/12/16 REPORT STATUS : Draft TRANSCRIBED BY: MODL DATE: 11/12/16 PAST MEDICAL HISTORY: Positive for lower GI bleed, diverticular in nature; pandiverticulosis, status post GI bleed as well as three colonoscopies. She has had interventional radiology embolization of the cecum done in July 2016. Hypertension, hyperlipidemia, degenerative joint disease, acquired factor VIII inhibitor coagulopathy, osteoarthritis, acute blood loss anemia, right common femoral pseudoaneurysm. PAST SURGICAL HISTORY: Right foot surgery; appendectomy; right carpal tunnel, internal iliac and celiac artery embolization for diverticular bleeding; debridement of right groin wound with VAC placement. SOCIAL HISTORY: She lives independently with family nearby. Denies alcohol, tobacco, or illicits. FAMILY HISTORY: Noncontributory from a GI standpoint. ALLERGIES: RED DYE. HOME MEDICATIONS: Lotrel, Refresh, fenofibrate, Diflucan, Levaquin, prednisone, Carafate. REVIEW OF SYSTEMS: A 10-point review of systems has been obtained with pertinent positives being addressed in the history of present illness. PHYSICAL EXAMINATION: VITAL SIGNS: Temperature 98.5, pulse 77, respirations of 18, blood pressure 129/78. NEURO: Reveals an alert, female, sitting up in a chair with no focal deficits. GENERAL: Cooperative, in no apparent distress. Awake, alert, oriented x3. HEAD, EARS, EYES, NOSE, AND THROAT: Anicteric. Pupils equal, round, reactive to light and accommodation. Normocephalic and atraumatic. NECK: No JVD. No palpable nodes. LUNGS: Decreased throughout. Normal respiratory effort exhibited. Equal expansion. CARDIOVASCULAR SYSTEM: Regular rate and rhythm. S1 and S2. No murmurs, rubs, gallops, S3, or S4 appreciated. ABDOMEN: Soft, nontender. No rebound, guarding or organomegaly elicited on exam. No distention. EXTREMITIES: She has right groin VAC dressing. No edema noted. SKIN: Warm, dry and intact. PERTINENT LABORATORY DATA: Sodium 146, potassium 3.1, BUN is 11, creatinine 0.69. White count 0.6, hemoglobin 7.2, hematocrit 22.3, platelet count 132. INR 1.3. Albumin 2.2. ASSESSMENT: 1. Neutropenic fever. Consultation Report [address] [place]. [address] NAME: JUAN MILLER : 39 STATUS : ADM IN [facility]#: [id number] AGE: 76 ADM/REG DATE : 11/10/16 MR#: [id number] REPORT SERV DATE: 11/12/16 DICTATED BY: GLADYS MIRANDA DATE: 11/12/16 REPORT STATUS : Draft TRANSCRIBED BY: MODL DATE: 11/12/16 2. Factor VIII inhibitor coagulopathy. 3. Questionable cholecystitis, on ultrasound and CT. 4. Right groin wound VAC, with which wound is healing. PLAN: 1. Continue Zosyn. 2. I have discussed with Dr. Marrufo. If there is a question of acute cholecystitis, we would recommend surgical evaluation for further evaluation. CAROL/INES Gladys STACEY Pineda / [id number] CC: Dylon Landry M.D.
--- NOTE | ~2016-11-10 | DS ---
Discharge Summary [place] [id number] [facility] [place]. [address] NAME: JUAN CHARLES : 39 STATUS : DIS IN PAT#: [id number] AGE: 76 ADM/REG DATE : 11/10/16 MR#: [id number] REPORT SERV DATE: 11/18/16 DICTATED BY: MADISON JONES DATE: 11/17/16 REPORT STATUS : Draft TRANSCRIBED BY: MODL DATE: 11/17/16 ADMISSION DATE: 11/10/2016 DISCHARGE DATE: 11/17/2016 DISCHARGE DIAGNOSES: 1. Neutropenic fever, cultures negative, the patient was treated with vancomycin and cefepime for the whole hospitalization. 2. Factor VIII inhibitor disease. The patient was followed by Dr. Palacios, continue to use the prednisone. 3. Right groin wound infection and wound VAC, seen by Dr. Stanley here in the hospital, and he ordered to discontinue the wound VAC since the wound was healing better. 4. Obesity. HISTORY OF PRESENT ILLNESS: This is a 76-year-old female patient, who came to the hospital with fever. Please see dictated H and P. HOSPITAL COURSE: She was hospitalized for neutropenic fever. She was in the hospital a very long time on the last admission. Started with GI bleeding and ended up having an issue with factor VIII inhibitor issue. She was treated with Cytoxan on last admission. She was discharged after she was more stabilized from all this bleeding problem. However, she came back to the hospital with neutropenic fever. This was thought to be related with the Cytoxan effect on her bone marrow. She was on Neupogen, and she was kept on empiric antibiotics with vancomycin and cefepime. Now, her neutrophils are improved, absolute neutrophil is above 500. Her cultures have been all negative. Her fever subsided within 24 hours. She was followed by Dr. Palacios while she was in the hospital. Stabilized and maximized inpatient benefit. We are going to stop the antibiotics, and the patient will be discharged to home and to follow up with Dr. Palacios on Thursday. Overall had a stable hospitalization. Seen by Dr. Stanley about the right groin wound infection and hematoma in the past, and he thought the wound is healing enough to take the wound VAC off. We kept her wound VAC until her neutrophils were above the great number. So, now she is going home. Ordered to discontinue the wound VAC and continue home health for simple dressing and wound care at home. Seen by the physical therapist, and decided to be at home with home health. We are resuming her home health, home PT, and wound care. DISCHARGE MEDICATION: There is no additional discharge medication or changes in medication. TIME SPENT: More than 30 minutes. The patient will be discharged to home with home health to be resumed and with followup with Dr. Palacios this Thursday. Discharge Summary [address] [address] NAME: JUAN CHARLES : 39 STATUS : DIS IN PAT#: [id number] AGE: 76 ADM/REG DATE : 11/10/16 MR#: [id number] REPORT SERV DATE: 11/18/16 DICTATED BY: MADISON JONES DATE: 11/17/16 REPORT STATUS : Draft TRANSCRIBED BY: INES DATE: 11/17/16 ADRIANO/INES Madison Jones M.D. / [id number] CC: Dylon Landry M.D.
--- NOTE | ~2016-11-10 | HP ---
History And Physical [place] [id number] [facility] [place]. [address] NAME: JUAN CHARLES : 39 STATUS : ADM IN [facility]#: [id number] AGE: 76 ADM/REG DATE : 11/10/16 MR#: [id number] REPORT SERV DATE: 11/11/16 DICTATED BY: LIANE XIE DATE: 11/11/16 REPORT STATUS : Draft TRANSCRIBED BY: MODMerrill DATE: 11/11/16 DATE OF ADMISSION: 11/10/2016 CHIEF COMPLAINT: A 76-year-old female with a history of pancytopenia, recent right groin hematoma, and necrotic right groin ulcer, now presenting with fevers and extremely low white blood cell count. HISTORY OF PRESENTING ILLNESS: The patient's history was obtained through careful interview with the patient and son, coupled with review of [facility]. The patient had presented in 08/2015 with a complicated right femoral pseudoaneurysm wound with hematoma formation and eventual necrotic right groin ulceration. She had to be hospitalized between 09/01/2016 and 10/21/2016 with extensive wound care and antibiotics, and other interventions. She was sent home on a wound VAC and followed by Dr. Sadler, vascular surgeon. She seems to be recovering fairly well, but has mostly suffered from weakness and tiredness over that period of time. She first began to develop fevers around 11/06/2016. She did have one documented fever of 101.0, but has had persistent hot feeling and chills. She was placed on seven days of antibiotics recently (Levaquin), but had apparently "no help" from this antibiotic. Today, she developed a fever of 101.3. She describes right leg tingling sensation and discomfort, a 3/10 severity. No chest pain. No abdominal pain. No shortness of breath. No cough. No nausea or vomiting. She has had slight diarrhea over the last three or four days. No bruising or bleeding has been noted. She believes that her right groin has been recovering well. There has been no significant purulent drainage or breakdown of her wound. REVIEW OF SYSTEMS: Otherwise, a fourteen-point review of systems was obtained and was negative. PAST MEDICAL HISTORY: 1. GI bleed with diverticular bleed, status post embolization to control bleeding. Followed by Dr. Waite. 2. Factor VIII inhibitor disorder. 3. Pancytopenia, seen by Dr. Palacios. 4. Urinary retention, seen by Dr. De León, urologist. 5. Pseudomonas infection. 6. Elevated cholesterol. 7. Hypertension. History And Physical [address] [place]. [address] NAME: JUAN CHARLES : 39 STATUS : ADM IN PAT#: [id number] AGE: 76 ADM/REG DATE : 11/10/16 MR#: [id number] REPORT SERV DATE: 11/11/16 DICTATED BY: LIANE XIE DATE: 11/11/16 REPORT STATUS : Draft TRANSCRIBED BY: MODL DATE: 11/11/16 PAST SURGICAL HISTORY: 1. Appendectomy. 2. Right femoral pseudoaneurysm repair with complicated hematoma and ulceration with surgical intervention. 3. Right foot surgery. 4. Appendectomy. 5. Right carpal tunnel release. ALLERGIES: RED DYE. SOCIAL HISTORY: Lives in [place]. Lives alone. Has a son who lives close and other children. Is seen by Home Healthcare. She has been a for "a long time." No tobacco abuse. No alcohol abuse. FAMILY HISTORY: Mother with heart disease. Father with cancer. Siblings with heart disease. CURRENT MEDICATIONS: Include Norvasc/benazepril 5/20 p.o. daily, eye drops, fenofibrate 67 mg p.o. daily, Diflucan 100 mg p.o. daily, Levaquin 750 mg p.o. daily, prednisone taper, sucralfate 1 g before breakfast and at bedtime, some medication taken twice a day? PHYSICAL EXAMINATION: VITAL SIGNS: Temperature 101.3; pulse 110; blood pressure initially 95/39, after fluid bolus, it was consistently around 111/57; respiratory rate 24; O2 saturation 95% on room air. GENERAL: A pleasant, cooperative female. She does not appear toxic at all and in no evidence of distress. HEENT: Pupils equal, round, and reactive to light. No conjunctival pallor. No scleral icterus. Nares are patent. Oropharynx is clear of obstruction. Moist mucous membranes. NECK: Trachea midline. No thyromegaly. LYMPH: No cervical lymphadenopathy. No supraclavicular lymphadenopathy. RESPIRATORY: Clear to auscultation at bases. No wheezes, rales, or rhonchi. Normal respiratory effort. CARDIOVASCULAR: Tachycardic. Regular rhythm. No murmurs, rubs, or gallops. No current extremity edema is appreciated. ABDOMEN: Soft, nontender, nondistended. Normal bowel sounds auscultated throughout. No organomegaly. DERMATOLOGICAL: Warm and dry. EXTREMITIES: No pallor. No cyanosis. I examined the patient's right groin ulcer. It appears well healed with good granulation tissue. There is no purulent drainage at all. No surrounding erythema, heat, swelling, nor tenderness. PSYCHIATRIC: Normal affect. Good mood. Alert and oriented x3. LABORATORY DATA: White blood cell count 0.4 with no detectable neutrophils, hemoglobin 8, hematocrit 25, platelets 176. Sodium 141, potassium 3.7, chloride 104, bicarb 27, BUN 16, creatinine 1.05, glucose 90, lipase 74, albumin 2.0, lactic acid 1.7. Liver enzymes within History And Physical [address] [address] NAME: JUAN CHARLES : 38 STATUS : ADM IN [facility]#: [id number] AGE: 76 ADM/REG DATE : 11/10/16 MR#: [id number] REPORT SERV DATE: 11/11/16 DICTATED BY: LIANE XIE DATE: 11/11/16 REPORT STATUS : Draft TRANSCRIBED BY: INES DATE: 11/11/16 normal limits. Urinalysis negative for infection. STUDIES: 1. CT scan of the abdomen and pelvis shows no acute intraabdominal process except for the questionable thickening of the gallbladder wall. 2. Chest x-ray by my own evaluation shows no acute cardiopulmonary process. ASSESSMENT AND PLAN: 1. Sepsis with initial shock. The patient responded well to IV fluid boluses with consistently good blood pressure readings before transfer to telemetry bed. White blood cell count is 0.4 with tachycardia, tachypnea, but a very nontoxic appearance. I discussed the case with Critical Care physician, Dr. Ewing. 2. Neutropenic fever. Consult Dr. Palacios, oncologist and director of psychiatry. This is a non chemotherapy-related condition. Place on IV cefepime and IV vancomycin. Consider bone marrow biopsy? 3. Right groin ulcer. Does not appear acutely infected. We will obtain a wound care consult to resume Vac-Pac placement and consult Dr. Sadler, vascular surgeon. 4. Diarrhea. Check Clostridium difficile toxin. KPL/MODL Liane Xie M.D. / [id number] CC: MD Robert Murray M.D. Bertrand Marquess Anz III, M.D.
[2016-11-10 19:47] LABS: BASOPHILS 2.4 %; BASOPHILS ABSOLUTE 0.01 10/3/uL (0.0-0.16); EOSINOPHILS 0 %; HEMATOCRIT 25.3 % (36.0-48.0); LYMPHOCYTES 85.7 %; LYMPHOCYTES ABSOLUTE 0.36 10/3/uL (0.67-4.30); MEAN CORPUS HGB CONC 31.6 g/dL (32.0-36.0); MEAN CORPUSCULAR HEMOGLOB 27.6 pg (26.0-34.0); MEAN PLATELET VOLUME 9.2 fL (9.2-13.0); MONOCYTES 11.9 %; MONOCYTES ABSOLUTE 0.05 10/3/uL (0.21-1.20); NEUTROPHILS 0 %; PLATELET COUNT 176 10/3/uL (150-400); RBC DISTRIBUTION WIDTH 17.7 % (12.0-16.0)
[~2016-11-10 19:47] MED LIST changes: +P20 PO; +PROTONIX PO; +SUCR PO
[2016-11-10 19:48] LABS: ER CBC TAT 0 Hrs 05 Mins; MEAN CORPUSCULAR VOLUME 87.2 fL (80-100); WHITE BLOOD CELLS 0.4 10/3/uL (4.5-10.5)
[2016-11-10 20:04] LABS: A/G RATIO 0.6 (0.7-1.9); ALKALINE PHOSPHATASE 104 U/L (45-117); BUN (BLOOD UREA NITROGEN) 16 MG/DL (6-23); CALCIUM, SERUM 7.5 MG/DL (8.5-10.4); CHLORIDE, SERUM 104 MMOL/L (96-112); CO2 (CARBON DIOXIDE) 27 MMOL/L (24-34); CREATININE 1.05 MG/DL (0.55-1.02); GFR AFRICAN AMERICAN 59 ML/MIN (>=60); GFR NON AFRICAN AMERICAN 51 ML/MIN (>=60); GLUCOSE, SERUM 90 MG/DL (60-99); POTASSIUM, SERUM 3.7 MMOL/L (3.5-5.3); SGOT(AST) 32 U/L (5-40); SGPT(ALT) 23 U/L (5-65); SODIUM, SERUM 141 MMOL/L (135-148); TOTAL BILIRUBIN 0.3 MG/DL (0-1.2)
[2016-11-10 20:05] LABS: GLOBULIN 3.1 G/DL (2.5-4.1); LACTATE 1.7 MMOL/L (0.3-2.4); TOTAL PROTEIN 5.1 G/DL (6.0-8.5)
[2016-11-10 20:30] LABS: ANISOCYTOSIS 1+ (5-10/OIF) (0-5/OIF); ER DIFF TAT 0 Hrs 47 Mins; LYMPHOCYTES 88 %; LYMPHOCYTES ABSOLUTE (CALC) 0.35 10/3/uL (0.67-4.30); MONOCYTES 12 %; MONOCYTES ABSOLUTE (CALC) 0.05 10/3/uL (0.21-1.20); TOTAL NUCLEATED CELLS 50
[2016-11-10 20:33] LABS: MACROCYTES 1+ (5-10/OIF) (0-5/OIF); MICROCYTES 1+ (5-10/OIF) (0-5/OIF); OVALOCYTES 1+ (3-10/OIF) (0-2/OIF); PLATELET ESTIMATE ADQ (ADEQUATE)
[2016-11-10 20:34] LABS: ELLIPTOCYTES 1+ (3-10/OIF) (0-2/OIF); TEARDROP SHAPED RBCS OCC (0-2/OIF)
[2016-11-10 20:42] LABS: MANUAL DIFF NO %
[2016-11-10 22:06] LABS: ASCORBIC ACID (UR NOT ORDER) NEG (NEG); BILIRUBIN, URINE NEGATIVE (NEG); ER URINALYSIS TAT 0 Hrs 00 Mins; KETONE, URINE NEGATIVE (NEG); LEUKOCYTE ESTERASE(NOT OR TRACE (NEG); NITRITE (URINE) NEG (NEG); WBC (NOT ORDERED) (RFLEX) 3 (0-5)
[2016-11-10] MEDS ORDERED: LEVAQUIN750 MG PO (22:29)
[2016-11-10] MEDS ORDERED: FLUCON1 PO (22:30)
[2016-11-10] MEDS ORDERED: P20 (22:31)
[2016-11-10] MEDS ORDERED: SUCR PO (22:39)
[2016-11-10] MEDS ORDERED: PROTONIX PO (22:40)
[2016-11-11 04:56] LABS: INTERNATIONAL NORMAL RATI 1.3 UNITS (-); PARTIAL THROMBO TIME 36.1 SEC (22.5-37.2)
[2016-11-11 04:59] LABS: PROTIME (NOT ORD) 16.2 SEC (12.0-14.5)
[2016-11-11 05:01] LABS: HEMOGLOBIN 7.7 g/dL (12.0-16.0); MEAN CORPUS HGB CONC 30.8 g/dL (32.0-36.0); MEAN CORPUSCULAR HEMOGLOB 27.3 pg (26.0-34.0); MEAN CORPUSCULAR VOLUME 88.7 fL (80-100); MEAN PLATELET VOLUME 9.4 fL (9.2-13.0); NUCLEATED RED BLOOD CELLS 2.7 /100WBC (0-0); PLATELET COUNT 163 10/3/uL (150-400); RBC DISTRIBUTION WIDTH 17.9 % (12.0-16.0); RED CELL COUNT 2.82 10/6/uL (4.0-5.6)
[2016-11-11 05:02] LABS: MANUAL DIFF YES %; WHITE BLOOD CELLS 0.6 10/3/uL (4.5-10.5)
[2016-11-11 05:18] LABS: A/G RATIO 0.8 (0.7-1.9); ALBUMIN 2.1 G/DL (3.5-5.0); ALKALINE PHOSPHATASE 107 U/L (45-117); BUN (BLOOD UREA NITROGEN) 13 MG/DL (6-23); CALCIUM, SERUM 7.6 MG/DL (8.5-10.4); CHLORIDE, SERUM 110 MMOL/L (96-112); CO2 (CARBON DIOXIDE) 24 MMOL/L (24-34); CREATININE 0.95 MG/DL (0.55-1.02); GFR AFRICAN AMERICAN 67 ML/MIN (>=60); GFR NON AFRICAN AMERICAN 58 ML/MIN (>=60); GLOBULIN 2.7 G/DL (2.5-4.1); GLUCOSE, SERUM 92 MG/DL (60-99); SGPT(ALT) 23 U/L (5-65); SODIUM, SERUM 144 MMOL/L (135-148); TOTAL BILIRUBIN 0.5 MG/DL (0-1.2); TOTAL PROTEIN 4.8 G/DL (6.0-8.5)
[2016-11-11 05:31] LABS: POTASSIUM, SERUM 3.8 MMOL/L (3.5-5.3)
[2016-11-11 05:32] LABS: SGOT(AST) 53 U/L (5-40)
[2016-11-11 05:43] LABS: LYMPHOCYTES 91 %; LYMPHOCYTES ABSOLUTE (CALC) 0.55 10/3/uL (0.67-4.30); MONOCYTES 9 %; MONOCYTES ABSOLUTE (CALC) 0.05 10/3/uL (0.21-1.20); TOTAL NUCLEATED CELLS 100
[2016-11-11 05:44] LABS: ANISOCYTOSIS 1+ (5-10/OIF) (0-5/OIF); HYPOCHROMIA 1+ (3-10/OIF) (0-2/OIF); PLATELET ESTIMATE ADQ (ADEQUATE)
[2016-11-11 06:19] LABS: PROCALCITONIN 0.27 ng/mL (<0.5)
[2016-11-12 04:59] LABS: MEAN CORPUS HGB CONC 30.9 g/dL (32.0-36.0); MEAN CORPUSCULAR HEMOGLOB 27.4 pg (26.0-34.0); MEAN CORPUSCULAR VOLUME 88.5 fL (80-100); PLATELET COUNT 132 10/3/uL (150-400); RBC DISTRIBUTION WIDTH 17.5 % (12.0-16.0); RED CELL COUNT 2.52 10/6/uL (4.0-5.6)
[2016-11-12 05:02] LABS: HEMATOCRIT 22.3 % (36.0-48.0); HEMOGLOBIN 7.2 g/dL (12.0-16.0); MANUAL DIFF YES %; WHITE BLOOD CELLS 0.6 10/3/uL (4.5-10.5)
[2016-11-12 05:13] LABS: A/G RATIO 0.9 (0.7-1.9); ALBUMIN 2.2 G/DL (3.5-5.0); BUN (BLOOD UREA NITROGEN) 11 MG/DL (6-23); CALCIUM, SERUM 7.2 MG/DL (8.5-10.4); CHLORIDE, SERUM 114 MMOL/L (96-112); CO2 (CARBON DIOXIDE) 23 MMOL/L (24-34); CREATININE 0.69 MG/DL (0.55-1.02); GFR AFRICAN AMERICAN 97 ML/MIN (>=60); GFR NON AFRICAN AMERICAN 84 ML/MIN (>=60); GLOBULIN 2.4 G/DL (2.5-4.1); GLUCOSE, SERUM 89 MG/DL (60-99); POTASSIUM, SERUM 3.1 MMOL/L (3.5-5.3); SGOT(AST) 27 U/L (5-40); SGPT(ALT) 24 U/L (5-65); SODIUM, SERUM 146 MMOL/L (135-148); TOTAL BILIRUBIN 0.9 MG/DL (0-1.2); TOTAL PROTEIN 4.6 G/DL (6.0-8.5)
[2016-11-12 05:15] LABS: ALKALINE PHOSPHATASE 82 U/L (45-117)
[2016-11-12 06:05] LABS: LYMPHOCYTES 92 %; LYMPHOCYTES ABSOLUTE (CALC) 0.55 10/3/uL (0.67-4.30); MONOCYTES 8 %; MONOCYTES ABSOLUTE (CALC) 0.05 10/3/uL (0.21-1.20); TOTAL NUCLEATED CELLS 24
[2016-11-12 06:06] LABS: ANISOCYTOSIS 1+ (5-10/OIF) (0-5/OIF); ELLIPTOCYTES 1+ (3-10/OIF) (0-2/OIF); HELMET CELLS OCC (0-2/OIF); HYPOCHROMIA 1+ (3-10/OIF) (0-2/OIF); PLATELET ESTIMATE SLT DEC (ADEQUATE); POIKILOCYTOSIS 1+ (5-10/OIF) (0-5/OIF); TEARDROP SHAPED RBCS OCC (0-2/OIF)
[2016-11-12 08:56] LABS: RETICULOCYTE COUNT 1.6 % (0.5-2.5); RETICULOCYTE COUNT ABSOLUTE 40.6 10/3/uL (20.2-119.8)
[2016-11-13 06:40] LABS: HEMOGLOBIN 7.8 g/dL (12.0-16.0); MEAN CORPUS HGB CONC 31.3 g/dL (32.0-36.0); MEAN CORPUSCULAR HEMOGLOB 27.5 pg (26.0-34.0); MEAN CORPUSCULAR VOLUME 87.7 fL (80-100); MEAN PLATELET VOLUME 9.9 fL (9.2-13.0); PLATELET COUNT 146 10/3/uL (150-400); RBC DISTRIBUTION WIDTH 17.4 % (12.0-16.0); RED CELL COUNT 2.84 10/6/uL (4.0-5.6)
[2016-11-13 06:42] LABS: HEMATOCRIT 24.9 % (36.0-48.0); WHITE BLOOD CELLS 0.8 10/3/uL (4.5-10.5)
[2016-11-13 06:43] LABS: MANUAL DIFF YES %
[2016-11-13 06:53] LABS: BUN (BLOOD UREA NITROGEN) 8 MG/DL (6-23); CALCIUM, SERUM 7.7 MG/DL (8.5-10.4); CHLORIDE, SERUM 111 MMOL/L (96-112); CO2 (CARBON DIOXIDE) 22 MMOL/L (24-34); CREATININE 0.72 MG/DL (0.55-1.02); GFR AFRICAN AMERICAN 94 ML/MIN (>=60); GFR NON AFRICAN AMERICAN 81 ML/MIN (>=60); GLUCOSE, SERUM 80 MG/DL (60-99); POTASSIUM, SERUM 3.8 MMOL/L (3.5-5.3); SODIUM, SERUM 145 MMOL/L (135-148)
[2016-11-13 07:58] LABS: ANISOCYTOSIS 1+ (5-10/OIF) (0-5/OIF); LYMPHOCYTES 97 %; LYMPHOCYTES ABSOLUTE (CALC) 0.78 10/3/uL (0.67-4.30); MONOCYTES 3 %; MONOCYTES ABSOLUTE (CALC) 0.02 10/3/uL (0.21-1.20); PLATELET ESTIMATE SLT DEC (ADEQUATE); TOTAL NUCLEATED CELLS 100
[2016-11-13 07:59] LABS: ELLIPTOCYTES 1+ (3-10/OIF) (0-2/OIF); TEARDROP SHAPED RBCS FEW (3-10/OIF)
[2016-11-14 05:45] LABS: HEMATOCRIT 26.9 % (36.0-48.0); HEMOGLOBIN 8.4 g/dL (12.0-16.0); MEAN CORPUS HGB CONC 31.2 g/dL (32.0-36.0); MEAN CORPUSCULAR HEMOGLOB 27.1 pg (26.0-34.0); MEAN CORPUSCULAR VOLUME 86.8 fL (80-100); MEAN PLATELET VOLUME 10.5 fL (9.2-13.0); NUCLEATED RED BLOOD CELLS 22.2 /100WBC (0-0); PLATELET COUNT 129 10/3/uL (150-400); RBC DISTRIBUTION WIDTH 17.8 % (12.0-16.0)
[2016-11-14 05:47] LABS: MANUAL DIFF YES %
[2016-11-14 06:15] LABS: ANISOCYTOSIS 1+ (5-10/OIF) (0-5/OIF); LYMPHOCYTES 83 %; LYMPHOCYTES ABSOLUTE (CALC) 0.83 10/3/uL (0.67-4.30); MONOCYTES 17 %; MONOCYTES ABSOLUTE (CALC) 0.17 10/3/uL (0.21-1.20); PLATELET ESTIMATE SLT DEC (ADEQUATE); REACTIVE LYMPHS OCC (0-2%) (0-5%); TOTAL NUCLEATED CELLS 30
[2016-11-14 06:16] LABS: POIKILOCYTOSIS 1+ (5-10/OIF) (0-5/OIF); POLYCHROMASIA 1+ (2-5/OIF) (0-1/OIF)
[2016-11-14 06:17] LABS: OVALOCYTES 1+ (3-10/OIF) (0-2/OIF); TEARDROP SHAPED RBCS OCC (0-2/OIF)
[2016-11-15 03:54] LABS: BUN (BLOOD UREA NITROGEN) 11 MG/DL (6-23); CALCIUM, SERUM 8.4 MG/DL (8.5-10.4); CHLORIDE, SERUM 109 MMOL/L (96-112); CO2 (CARBON DIOXIDE) 26 MMOL/L (24-34); CREATININE 0.83 MG/DL (0.55-1.02); GFR AFRICAN AMERICAN 79 ML/MIN (>=60); GFR NON AFRICAN AMERICAN 68 ML/MIN (>=60); GLUCOSE, SERUM 89 MG/DL (60-99); POTASSIUM, SERUM 3.4 MMOL/L (3.5-5.3); SODIUM, SERUM 145 MMOL/L (135-148); VANCOMYCIN TROUGH 15.6 MCG/ML (10.0-20.0)
[2016-11-15 03:58] LABS: HEMATOCRIT 27.7 % (36.0-48.0); HEMOGLOBIN 8.3 g/dL (12.0-16.0); MANUAL DIFF YES %; MEAN CORPUSCULAR HEMOGLOB 26.7 pg (26.0-34.0); MEAN CORPUSCULAR VOLUME 89.1 fL (80-100); MEAN PLATELET VOLUME 11.3 fL (9.2-13.0); NUCLEATED RED BLOOD CELLS 24.8 /100WBC (0-0); PLATELET COUNT 121 10/3/uL (150-400); RED CELL COUNT 3.11 10/6/uL (4.0-5.6); WHITE BLOOD CELLS 2.3 10/3/uL (4.5-10.5)
[2016-11-15 04:20] LABS: BAND NEUTROPHILS 7 %; LYMPHOCYTES 79 %; LYMPHOCYTES ABSOLUTE (CALC) 1.82 10/3/uL (0.67-4.30); MONOCYTES 11 %; MONOCYTES ABSOLUTE (CALC) 0.25 10/3/uL (0.21-1.20); NEUTROPHILS ABSOLUTE (CALC) 0.23 10/3/uL (2.02-8.40); SEGMENTED NEUTROPHIL (0) 3 %; TOTAL NUCLEATED CELLS 100
[2016-11-15 04:21] LABS: ANISOCYTOSIS 1+ (5-10/OIF) (0-5/OIF); PLATELET ESTIMATE SLT DEC (ADEQUATE); POLYCHROMASIA 1+ (2-5/OIF) (0-1/OIF)
[2016-11-16 06:32] LABS: HEMATOCRIT 27.1 % (36.0-48.0); HEMOGLOBIN 8.1 g/dL (12.0-16.0); MEAN CORPUS HGB CONC 29.9 g/dL (32.0-36.0); MEAN CORPUSCULAR HEMOGLOB 26.6 pg (26.0-34.0); MEAN CORPUSCULAR VOLUME 89.1 fL (80-100); MEAN PLATELET VOLUME 11.3 fL (9.2-13.0); PLATELET COUNT 97 10/3/uL (150-400); RBC DISTRIBUTION WIDTH 18.7 % (12.0-16.0); RED CELL COUNT 3.04 10/6/uL (4.0-5.6)
[2016-11-16 06:33] LABS: MANUAL DIFF YES %
[2016-11-16 12:51] LABS: SEGMENTED NEUTROPHIL (0) 9 %; TOTAL NUCLEATED CELLS 100
[2016-11-16 12:52] LABS: ANISOCYTOSIS 1+ (5-10/OIF) (0-5/OIF); BAND NEUTROPHILS 29 %; EOSINOPHILS 1 %; EOSINOPHILS ABSOLUTE (CALC) 0.06 10/3/uL (0.0-0.53); HELMET CELLS OCC (0-2/OIF); HYPOCHROMIA 1+ (3-10/OIF) (0-2/OIF); IMMATURE GRANS ABSOLUTE (CALC) 0.48 10/3/uL (0.0-0.11); LYMPHOCYTES 41 %; LYMPHOCYTES ABSOLUTE (CALC) 2.46 10/3/uL (0.67-4.30); METAMYELOCYTES 6 %; MONOCYTES 12 %; MONOCYTES ABSOLUTE (CALC) 0.72 10/3/uL (0.21-1.20); MYELOCYTES 2 %; NEUTROPHILS ABSOLUTE (CALC) 2.28 10/3/uL (2.02-8.40); PLATELET ESTIMATE DEC (ADEQUATE); POLYCHROMASIA 1+ (2-5/OIF) (0-1/OIF); TEARDROP SHAPED RBCS OCC (0-2/OIF); TOXIC GRANULATION 1+; VACUOLATED NEUTROPHILES OCC
[2016-11-16 12:53] LABS: MACROCYTES 1+ (5-10/OIF) (0-5/OIF); MICROCYTES 1+ (5-10/OIF) (0-5/OIF); SPHEROCYTES OCC (0-2/OIF)
[2016-11-17 05:45] LABS: HEMATOCRIT 25.2 % (36.0-48.0); HEMOGLOBIN 7.6 g/dL (12.0-16.0); MEAN CORPUS HGB CONC 30.2 g/dL (32.0-36.0); MEAN CORPUSCULAR HEMOGLOB 26.4 pg (26.0-34.0); MEAN CORPUSCULAR VOLUME 87.5 fL (80-100); MEAN PLATELET VOLUME 11.4 fL (9.2-13.0); NUCLEATED RED BLOOD CELLS 6.6 /100WBC (0-0); PLATELET COUNT 86 10/3/uL (150-400); RED CELL COUNT 2.88 10/6/uL (4.0-5.6)
[2016-11-17 05:51] LABS: MANUAL DIFF YES %; WHITE BLOOD CELLS 17.5 10/3/uL (4.5-10.5)
[2016-11-17 08:15] LABS: ANISOCYTOSIS 1+ (5-10/OIF) (0-5/OIF); BAND NEUTROPHILS 3 %; LYMPHOCYTES 13 %; LYMPHOCYTES ABSOLUTE (CALC) 2.28 10/3/uL (0.67-4.30); MONOCYTES 6 %; MONOCYTES ABSOLUTE (CALC) 1.05 10/3/uL (0.21-1.20); NEUTROPHILS ABSOLUTE (CALC) 14.18 10/3/uL (2.02-8.40); PLATELET ESTIMATE DEC (ADEQUATE); SEGMENTED NEUTROPHIL (0) 78 %; TEARDROP SHAPED RBCS OCC (0-2/OIF); TOTAL NUCLEATED CELLS 100
== END 2016-11-17 18:53 | disposition home health service (06) | DRG 871 ==
LOC: ER 19:47 → 2SO 22:44
PROVIDERS: Emergency Medicine; Hospitalist; Internal Medicine; Internal Medicine Hematology & Oncology
DX: A41.9 Sepsis, unspecified organism (principal); R65.21 Severe sepsis with septic shock; D66 Hereditary factor VIII deficiency; D61.811 Other drug-induced pancytopenia; D70.9 Neutropenia, unspecified; K80.00 Calculus of gallbladder with acute cholecystitis without obstruction; D68.51 Activated protein C resistance; T81.4XXA Infection following a procedure, initial encounter; T45.1X5A Adverse effect of antineoplastic and immunosuppressive drugs, initial encounter; R50.81 Fever presenting with conditions classified elsewhere; R19.7 Diarrhea, unspecified; E78.00 Pure hypercholesterolemia, unspecified; I10 Essential (primary) hypertension; E78.5 Hyperlipidemia, unspecified; M19.90 Unspecified osteoarthritis, unspecified site; K57.30 Diverticulosis of large intestine without perforation or abscess without bleeding; D64.9 Anemia, unspecified; Z98.890 Other specified postprocedural states; Z82.49 Family history of ischemic heart disease and other diseases of the circulatory system; Z80.9 Family history of malignant neoplasm, unspecified; Z79.52 Long term (current) use of systemic steroids; Y92.009 Unspecified place in unspecified non-institutional (private) residence as the place of occurrence of the external cause
CPT/HCPCS: 71010; 74176; 76705; 80048; 80053; 80202; 81001; 82668; 83605; 83615; 83690; 83735; 84132; 84145; 84443; 85025; 85045; 85610; 85730; 87040; 97116-GP; 97161-GP; 99285; A9270-GY; G8978-CK-GP; G8979-CI-GP; J0692; J1447; J3370; P9047

== ENCOUNTER 2016-12-02 16:06 | Emergency (ER) | payer OTHER ==
[~2016-12-02 16:06] MED LIST changes: +FLUCON1 PO; +LEVAQUIN750 MG PO; +P20
[2016-12-02 17:33] LABS: BASOPHILS 0.6 %; BASOPHILS ABSOLUTE 0.03 10/3/uL (0.0-0.16); EOSINOPHILS 0.2 %; EOSINOPHILS ABSOLUTE 0.01 10/3/uL (0.0-0.53); IMMATURE GRANULOCYTES 1.1 %; IMMATURE GRANULOCYTES ABSOLUTE 0.06 10/3/uL (0.0-0.11); LYMPHOCYTES 12.8 %; LYMPHOCYTES ABSOLUTE 0.69 10/3/uL (0.67-4.30); MEAN CORPUS HGB CONC 29.7 g/dL (32.0-36.0); MEAN CORPUSCULAR HEMOGLOB 27.7 pg (26.0-34.0); MEAN PLATELET VOLUME 9.4 fL (9.2-13.0); MONOCYTES ABSOLUTE 0.43 10/3/uL (0.21-1.20); NEUTROPHILS 77.3 %; NEUTROPHILS ABSOLUTE 4.15 10/3/uL (2.02-8.40); RBC DISTRIBUTION WIDTH 21.2 % (12.0-16.0)
[2016-12-02 17:37] LABS: ER CBC TAT 0 Hrs 15 Mins; HEMATOCRIT 32.3 % (36.0-48.0); HEMOGLOBIN 9.6 g/dL (12.0-16.0); MANUAL DIFF NO %; MEAN CORPUSCULAR VOLUME 93.1 fL (80-100); PLATELET COUNT 166 10/3/uL (150-400); RED CELL COUNT 3.47 10/6/uL (4.0-5.6); WHITE BLOOD CELLS 5.4 10/3/uL (4.5-10.5)
[2016-12-02 17:43] LABS: BUN (BLOOD UREA NITROGEN) 12 MG/DL (6-23); CALCIUM, SERUM 8.2 MG/DL (8.5-10.4); CHLORIDE, SERUM 108 MMOL/L (96-112); CO2 (CARBON DIOXIDE) 27 MMOL/L (24-34); CREATININE 0.67 MG/DL (0.55-1.02); GFR AFRICAN AMERICAN 98 ML/MIN (>=60); GFR NON AFRICAN AMERICAN 85 ML/MIN (>=60); GLUCOSE, SERUM 99 MG/DL (60-99); POTASSIUM, SERUM 3.6 MMOL/L (3.5-5.3); SODIUM, SERUM 145 MMOL/L (135-148)
[2016-12-02 18:00] LABS: BAND NEUTROPHILS 3 %; ER DIFF TAT 0 Hrs 38 Mins; LYMPHOCYTES 7 %; LYMPHOCYTES ABSOLUTE (CALC) 0.38 10/3/uL (0.67-4.30); MONOCYTES 4 %; MONOCYTES ABSOLUTE (CALC) 0.22 10/3/uL (0.21-1.20); NEUTROPHILS ABSOLUTE (CALC) 4.81 10/3/uL (2.02-8.40); SEGMENTED NEUTROPHIL (0) 86 %; TOTAL NUCLEATED CELLS 100
[2016-12-02 18:01] LABS: ANISOCYTOSIS 1+ (5-10/OIF) (0-5/OIF); PLATELET ESTIMATE ADQ (ADEQUATE); TEARDROP SHAPED RBCS OCC (0-2/OIF)
== END 2016-12-02 19:19 | disposition home or self-care (01) ==
LOC: ER 16:06
PROVIDERS: Physician Assistant
DX: S31.103A Unspecified open wound of abdominal wall, right lower quadrant without penetration into peritoneal cavity, initial encounter (principal); I10 Essential (primary) hypertension; Z79.52 Long term (current) use of systemic steroids; Z91.041 Radiographic dye allergy status; X58.XXXA Exposure to other specified factors, initial encounter
CPT/HCPCS: 80048; 85025; 87070; 87077; 87186; 87205; 99283; A9270-GY